=== PATIENT | female | born 1975 | race Caucasian/White ===

== ENCOUNTER 2018-11-29 05:51 | Observation (INO) | payer MEDICARE, MEDICAID ==
[~2018-11-29 05:51] MED LIST: Buffered Lidocaine 1% SYRIN* 1 ML/SYRINGE INTRADERM ONE; DiMENhydriNATE IV* 50 MG/ML VIAL IV PUSH PRN; Morphine 4 MG/ML VIAL (1 ml) 4 MG/ML VIAL IV PRN; Naloxone* 0.4 MG/ML 1 ML VIAL IV PRN; Ondansetron TAB* 4 MG PO ONE; PROCHLORPERAZINE INJ 5 MG/ML 2 ML VIAL IV PRN; Scopolamine 1.5 mg* PATCH TRANSDERM PRN; fentaNYL* 50 MCG/ML 2 ML VIAL (100 MCG VIAL) IV PRN; oxyCODONE/Acetamin 5/325 MG* TAB PO PRN
--- OUTSIDE RECORDS SUMMARY | 2018-11-29 05:55 | XMS REPORT | Continuity of Care Document ---
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 Onset: 10/28/2018 Localized, primary osteoarthritis of the Marty Dixon MD Active ankle and/or foot Family History Date Family Member(s) Observation Comments General Diabetes Social History Type Date Description Comments Sex Unknown Lives With apartment in assisted living ETOH Use Denies alcohol use Tobacco Use Start: Unknown Patient has never smoked Smoking Status Reviewed: 11/16/18 Patient has never smoked Allergies, Adverse Reactions, Alerts Description No Known Drug Allergies Medications Medication Date Status Form Strength Qnty SIG Indications Ordering Provider Ibuprofen / Active Capsules 200mg two tabs Unknown 0000 three times daily as needed for Left ankle pain Vitamin D / Active Tablets 1000Unit one tab Unknown 0000 December thru June and 2 tabs July thru november Synthroid / Active Tablets 75mcg 1 by mouth Unknown 0000 every day Guaifenesin/De / Active Tablets ER 60-1200mg Unknown xtromethorphan 0000 12HR Hydrobromide Tylenol / Active Tablets 325mg 2 tabs by Unknown 0000 mouth every 4 hours as needed [place]-3 / Active Capsules 1000mg 1 tab by Unknown 0000 mouth twice a day Omeprazole / Active Capsules DR 20mg 1 by mouth Unknown 0000 every day Fluticasone / Active Suspension 50mcg/Act 1 spray in Unknown Propionate 0000 each Nasal [place] nostril each day. Benefiber / Active Powder 2 Unknown 0000 teaspoons 2 times per day Multi-Vitamins / Active Tablets take one Unknown 0000 tablet by mouth every day (supplemen t) Fish Oil / Hx Unknown 2018 Multivitamin / Hx Unknown - 2018 Zantac / Hx Unknown - 2018 Ccalcium / Hx Unknown 2018 Immunizations Description No Information Available Vital Signs Date Vital Result Comment 11/16/2018 2:56pm Height 61 inches 5'1" Weight 138.00 lb Heart Rate 78 /min BP Systolic Sitting 122 mmHg BP Diastolic Sitting 74 mmHg Pain Level 10 O2 % BldC Oximetry 96 % BMI (Body Mass Index) 26.1 kg/m2 10/28/2018 3:23pm Height 61 inches 5'1" Weight 140.00 lb Heart Rate 80 /min BP Systolic 120 mmHg BP Diastolic 80 mmHg Pain Level 6 BMI (Body Mass Index) 26.4 kg/m2 Results Description No Information Available Procedures Description No Information Available Encounters Type Date Location Provider Dx Diagnosis Office Visit 10/28/2018 Orthopedic Marty Dixon, M19.072 [facility] [place] osteoarthritis, left ankle and foot M19.071 Primary osteoarthritis, 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 - Marty Dixon, MDM19.072 Primary osteoarthritis, left ankle and footFollow up:Follow Up: 13-15 days vzllagH29.875 Other osteonecrosis, left footM19.071 Primary osteoarthritis, right ankle and footM87.874 Other osteonecrosis, right foot
--- OUTSIDE RECORDS SUMMARY | 2018-11-29 05:55 | XMS REPORT | Continuity of Care Document ---
:1975 External Reference #:[id number] Author Name Mary Lou Landry Care Team Providers Name Role Phone Netta Ledesma MD Care Team Information Manager Of Clinical Unavailable Payers Date Identification Numbers Payment Provider Subscriber Effective: 2002 Policy Number: [id number] Medicare Lacie Shea Group Name: [facility] [address] PayID: [id number] KOFI Dooley [id number] Effective: 2018 Policy Number: [id number] [facility] Ajit Shea Group Number: [id number] [address] Group Name: [place] [address] PayID: [id number] Policy Number: [id number] Medicaid ### >11 Lacie Shea Group Name: [id number] [address] PayID: [id number] [place] [address] Advance Directives Description No Information Available Problems Date Description Provider Status Onset: 09/30/2006 Hypothyroidism Linda Bermudez RN MS [employer] Active Onset: 12/21/2012 Iron deficiency anemia Magy Fabian MD Active Onset: 12/21/2012 Mitral valve disorder Magy Fabian MD Active Note: mitral valve prolapse with mitral insufficieny Onset: 12/21/2012 Mixed hyperlipidemia Magy Fabian MD Active Onset: 12/21/2012 Aortic valve disorder Magy Fabian MD Active Onset: 12/21/2012 Vitamin D deficiency Magy Fabian MD Active Onset: 12/21/2012 Vitiligo Magy Fabian MD Active Family History Description No Information Available Social History Type Date Description Comments Sex Unknown Tobacco Use Start: Unknown End: denies cigarette use Unknown ETOH Use Denies alcohol use Recreational Drug Use Denies Drug Use Tobacco Use Start: Unknown Patient has never smoked Smoking Status Reviewed: 11/15/18 Patient has never smoked Currently Active Has never engaged in sexual activity Contraceptive Methods Current methods include tubal ligation Allergies, Adverse Reactions, Alerts Description No Known Drug Allergies Medications Medication Date Status Form Strength Qnty SIG Indications Ordering Provider Olopatadine HCL 09/06 Active Solution 0.6% 30.500g 2 p bilat H65.02 Bal[place]zar lizzie nares Netta twice a MD Lizzie day x 2 weeks then stop Benefiber On The 03/22 Active Packet QS 1 by [place]tazar, mouth Netta every day MD Lizzie as needed constipat ion Super Leigh-3 12/10 Active Capsules -3 100caps one tab Jes daily Netta MD Lizzie Diet 09/27 Active low Baltazar cholester Nettaher abi Phma MD V-8 Juice 09/06 Active no contraind Netta ication MD Lizzie to consume low sodium 1 can/d- [place] house may encourage this Prevident 10/22 Active Gel 1.1% 56gm may apply to tooth Linda Sierra RN MS twice a [employer] day Vitamin D 08/11 Active Tablets 1000Unit 90tabs 1 by E55.9 mouth Netta every day MD Lizzie 12/14-07/15 3 by mouth every day 07/16-12/13 so this means currently 3 qd) Biofreeze 04/01 Active Aerosol 10% 1units [place] RT Ribs bid Linda Sierra RN MS [employer] Omeprazole 03/16 Active Capsules 20mg 30caps [address] mouth Netta every day MD Lizzie A & D Zinc Oxide 08/21 Active Cream 113gm apply bid to Netta affected MD Lizzie area prn Ranitidine HCL 12/31 Active Tablets 150mg 60tabs 1 by [place] mouth Netta twice a MD Lizzie day Fluticasone 05/29 Active Suspension 50mcg/Act 16units 2 sprays H65.93 Baltazar, in each Netta nostril MD Lizzie daily Triple 04/10 Active Ointment 1% 1units Apply bid [place]ta[place], Antibiotic X 3 D prn Netta Cuts/Scra MD Lizzie pes Levothyroxine 10/31 Active Tablets 75mcg 30tabs 1 by E03.9 [place], Sodium mouth Netta every day MD Lizzie Vitamins & 03/11 Active Tablets 30tabs 1 by [place] Minerals mouth Netta every day MD Lizzie Loratadine 12/30 Active Tablets 10mg 90tabs 1 by [place] mouth Netta every day MD Lizzie as needed only for allergy symptoms Tylenol 01/12 Active Tablets 325mg 60tabs 2 po q 4 280.9 [place], hours as Netta needed MD Lizzie for pain/Feve r prn Ibuprofen 10/24 Active Capsules 200mg 60caps 2 by [place], mouth Netta after MD Lizzie meals q6 hours for the pain stop if there is gi sx Azithromycin 09/06 Hx Tablets 250mg 6tabs 2 tabs H65.02 [place] day one Netta - and 1 tab MD Lizzie 10/21 till gone Cephalexin 06/20 Hx Tablets 500mg 15tabs 1 by L03.113 [place] mouth Netta - three MD Lizzie 09/06 times day Doxycycline 03/28 Hx Capsules 100mg 14caps 1 cap by L02.412 [place] Monohydrate mouth Netta - twice a MD Lizzie Amoxicillin/Clav 03/03 Hx Tablets 875-125mg 14tabs 1 by L02.412 nick Bermudez mouth Linda Potassium - twice a NOMI Sierra MS 03/22 day Miralax 08/23 Hx d/c d/t Baltazar no longer Netta - needs MD Lizzie 08/23 BM's reg on fiber supp Vitamin D-3 04/02 Hx Tablets 2000Unit 90tabs one daily Aidan Linda - C RN MS 04/02 [employer] Total Fiber 04/02 Hx Powder 952gm 2 TSP Aidan Daily X 7 Linda - Days If NOMI Sierra MS 03/22 Needed [employer] After One Week. May Increase To 2 TSP bid Tamiflu 10/16 Hx Capsules 75mg 10caps 1 by 487.8 [place] mouth Netta - twice a MD Lizzie 12/07 day x days Hydroxyzine HCL 06/26 Hx Tablets 10mg 40tabs discontin 308.3 [place] ue Netta Pham MD 06/18 Azithromycin 05/29 Hx Tablets 250mg 1Pack 2 tabs 381.4 [place] day one Netta - and 1 tab MD Lizzie 06/26 daily till gone Amoxicillin 10/27 Hx Tablets 875mg 20tabs 1 po bid 381.4 [place] Netta Pham MD 01/01 A+D First Aid 10/27 Hx Ointment QS apply 616.10 [place] external Netta - vaginal MD Lizzie 08/20 area bid /2015 x 10 d Amoxicillin/Pota 10/25 Hx Tablets 875-125mg 14tabs 1 po bid 682.8 [place], ssi Netta Clavulanate Myra Pham MD 11/14 Protein 07/22 Hx QS body [place], fortress Netta - super MD Lizzie 12/16 whey 1/2-1 scoop qd Vitamin D3 07/01 Hx Capsules [id number] 8caps 1 po q wk Baltazar x 8 wks Netta Pham MD 12/19 No 05/[address] Bermudez, Contraindication Torrie barber To Proposed - katt Sierra, RN MS Dental Surgery 06/17 reviewed [employer] as was the patinet chart and this should be a fine plan.. Diet 12/14 Hx low fat V72.31 [place] Netta Pham MD 12/21 Oxistat 10/01 Hx Cream 1% 1Lgtube apply tid Baltazar 3 wks Netta Pham MD 12/21 Glucosamine/Jarrod 09/28 Hx Tablets 750-600mg 180tabs 2 po qd [place]zar, dro Netta Pham MD 08/20 Miconazole 09/11 Hx Cream 2% 45gm Apply bid 110.8 [place], Until Netta - Rash Gone MD Lizzie 12/21 D/C 07/17 Hx Dermotic [place] Netta Pham MD 07/17 Boost 04/07 Hx D/c qd [place] dosing Netta Olson MD 04/08 change to prn Citracal + D3 03/25 Hx Tablets 315-250mg- 60tabs 1 po bid [place], Unit Netta Pham MD 04/02 Dermotic 03/25 Hx Oil 0.01% QSmeds 2 drops Baltazar each ear Netta - bid prn MD Lizzie 07/17 Act Mint 03/25 Hx Rinse Baltazar, Solution Mouth bid Netta Pham MD 12/21 Prilosec 03/12 Hx Capsules 20mg 90caps [address] Linda Sierra RN MS 12/21 [employer] Boost 02/24 Hx Liquid 30units 1x/D prn Aidan morris Sierra RN MS 06/17 starting 06/17/2012 D/C Colace 10/20 Hx [place] Netta Pham MD 11/25 Ranitidine HCL 06/19 Hx Tab 150mg/10ML One Tab By Mouth Linda - Q 12 HRS Mariela RN MS 03/12 [employer] Pseudoephedrine 06/19 Hx Tablets 60mg 30tabs T Tab bid Aidan, HCL as needed Linda - for nasal Mariela RN MS 07/17 or ear congestio n Saline Nasal 06/19 Hx Solution 0.65% 1units 2 sprays , [place] each Linda - nostril Mariela RN MS 07/17 tid as needed for nasal congestio n Discontinue 03/11 Hx [place]tazar, Ferrous Sulfate Netta 325MG qod - MD Lizzie 07/22 Blood Draw 12/16 Hx 25 Oh Vit Baltazar Leida Pham MD 07/22 DX: Def Vitamin D 12/09 Hx Capsules 1000Unit 60caps 2 by [place] mouth Netta - every day MD Lizzie 08/11 07/16 thru 12/13-07/15 take 1 every day Please 10/15 Hx zofram Aidan, Discontinue medicatio Linda - n qid as C, RN MS 12/07 of today Zofran 10/07 Hx Tablets 4mg 12tabs 1-2 tid [facility] prn n/v Netta Pham MD 10/08 D/C Flagyl 09/25 Hx Tablets 500mg 14tabs 1 bidx7 2009 Linda Sierra RN MS 07/22 Clarinex 05/17 Hx Tablets 5mg 90tabs 1 po qd 477.0 [facility] prn Netta Pham MD 12/30 Omeprazole 02/27 Hx Capsules 20mg 90caps [address] Linda Sierra RN MS 03/25 Vitamin D 10/29 Hx Capsules 400Unit 60caps 1 po bid Netta Pham MD 12/09 PPD 10/24 Hx Screening please Test place and Linda - read with NOMI Sierra MS 11/03 in 48-72 hours. fax results to [phone] Flagyl 10/23 Hx Tablets 500mg 14tabs 1 bid x 7 616.10 2008 Linda Sierra RN MS 02/27 Super Leigh-3 06/13 Hx Capsules 1000mg Of 100caps one tab Baltazar Leigh 3 daily Netta Pham MD 12/10 Diflucan 03/29 Hx Tablets 150mg 1tabs one tab [place]zar po times Netta - one day MD Lizzie 10/18 Elocon 03/26 Hx Cream 0.1% 45gm Apply bid 705.81 [place]tazar prn Netta - ItchLizzie funez MD 07/17 Scaly /2010 Areas Miralax (Single 09/29 Hx Packet [id number] 50units dissolve 564.00 [place], Dose Packets) 1pkt in 8 Netta - oz of MD Lizzie 12/21 water and /2012 drink qd prn daily if no BM Glucosamine/Jarrod 03/21 Hx Tablets 750-600 180tabs 2 po qd Baltazar, droitin /2006 Netta Pham MD 09/28 Blood Draw 02/07 Hx cbc, bmp, Baltazar TSH, iron Netta Pham MD 10/04 dx: anemia, hypothyro id Crutches 10/25 Hx dx: foot Baltazar pain Netta Pham MD 10/18 attn: linda roman to use at dayhab Docusate Sodium 09/28 Hx Capsules 100mg 180caps 2 po hs [place]zar Netta Pham MD 10/20 Amoxicillin 05/12 Hx Capsules 500mg 4caps 4 po 1 hr Baltazar, before Netta - wilner Pham MD 10/04 Monistat 7 04/16 Hx Supp/Cream 100mg;2 % 1Tube qhs x 7D Baltazar, Combination Netta Pham MD 09/28 Ferrous Sulfate 01/15 Hx Tablets 325mg 15tabs 1 tab qod [place] Netta Pham MD 03/10 Cipro 10/20 Hx Tablets 500mg 14tabs 1 po bid 595.0 [place] Netta Pham MD 01/12 Amoxicillin 06/15 Hx Capsules 500mg 4caps 4 PO 1 HR [place] Before Netta - Wilner Pham MD 01/12 Adderall XR 03/13 Hx Capsules 15mg 30caps one in Baltazar the am Netta Pham MD 03/13 Calicium 500MG 03/13 Hx 60units 1 po bid [place], Plus Vit D Netta Pham MD 03/25 A & D Ointment 03/13 Hx Ointment 1Tube to [place]tazar affected Netta - area karyn Pham MD 03/25 Docusate 03/13 Hx 200mg 90units 1 po qd [place] Netta Pham MD 09/28 Synthroid 10/24 Hx Tablets 75mcg 30tabs 1 po qd Aidan, Linda Sierra RN MS 04/05 [employer] Vitamins 10/24 Hx Caplets 30caps 1 po qd [place], Netta Pham MD 03/11 Guaifenesin 10/24 Hx Tablets 200mg 60tabs 1 PO tid [place]tazar prn Cough Netta Pham MD 12/21 Pseudoephedrine 10/24 Hx Tablets 30mg 30tabs 2 Q 6H as [place] Needed Netta Torrez Cold MD Lizzie 06/19 Clonidine 10/24 Hx Tablets 0.1mg 15tabs 1/2 tab [place] at hs Netta Pham MD 10/18 Ferrous Sulfate 09/10 Hx Tablets 325mg 60tabs 1 po bid [place], Netta Pham MD 01/15 Synthroid 09/10 Hx Tablets 75mcg 30tabs 1 po qd [place] Netta Pham MD 10/31 Docusate Sodium 09/10 Hx Capsules 100mg 100caps 1 po bid [place] Netta Pham MD 03/13 Bextra 09/10 Hx Tablets 10mg 30tabs 1 po qd [place] with food Netta Pham MD 01/12 Medications Administered in Office Medication Date Status Form Strength Qnty SIG Indications Ordering Provider PPD Administered Injection Aidan, 010 Linda Sierra RN MS [employer] PPD Administered Injection [place], 008 Netta Pham MD PPD Administered Injection Nurses 008 Schedule Shannon PPD Administered Injection [place], 007 Netta Pham MD PPD Administered Injection [place], 007 Linda Sierra RN MS [employer] PPD Administered Injection [place], 005 Netta Pham MD Torodol Administered Injection [place], Injection 15 002 Netta Pham MD PPD Administered Injection [place], 002 Netta Pham MD PPD Administered Injection [place], 001 NOMI Marin A.N.P. Immunizations CPT Code Status Date Vaccine Lot # [id number] Given 06/08/2018 Influenza Vac, Quadrivalent, Split, [id number] 0.5mL Dosage, Im Use 68536 Given 06/10/2016 Influenza Vac, Quadrivalent, Split, 0.5mL Dosage, Im Use 32206 Given 05/31/2015 Tdap (Adacel) Ages 7 And Above Only [id number] 05062 Given 05/31/2015 Influenza Vac, Quadrivalent, Split, [id number] 0.5mL Dosage, Im Use 38079 Given 05/17/2009 Afluria Or Fluvirin Flu Vac [id number] Intramuscular 92909 Given 06/17/2005 Afluria Or Fluvirin Flu Vac [id number] exp 02/12/06 Intramuscular 21260 Given 09/01/2004 Afluria Or Fluvirin Flu Vac Intramuscular 40983 Given 10/12/2003 Tetanus And Diptheria Toxoids For Adult Use-preservative free 68658 Given 08/25/1999 Hepatitis B Vaccine Adult Dosage 99561 Given 07/21/1999 Hepatitis B Vaccine Adult Dosage 19814 Given 07/21/1999 MMR Virus Immunization Vital Signs Date Vital Result Comment 11/15/2018 10:37am Weight 138.00 lb Heart Rate 64 /min BP Systolic 126 mmHg BP Diastolic 68 mmHg Height 60.5 inches 5'0.50" BMI (Body Mass Index) 26.5 kg/m2 09/06/2018 2:08pm Body Temperature 97.3 F Weight 142.00 lb Heart Rate 72 /min BP Systolic 128 mmHg BP Diastolic 72 mmHg Height 60.5 inches 5'0.50" BMI (Body Mass Index) 27.3 kg/m2 06/20/2018 11:49am Weight 144.00 lb Heart Rate 80 /min BP Systolic 124 mmHg BP Diastolic 76 mmHg Height 60.5 inches 5'0.50" BMI (Body Mass Index) 27.7 kg/m2 06/08/2018 11:33am Weight 142.00 lb Heart Rate 64 /min BP Systolic 120 mmHg BP Diastolic 66 mmHg Height 60.5 inches 5'0.50" BMI (Body Mass Index) 27.3 kg/m2 03/30/2018 12:00pm Heart Rate 75 /min BP Systolic 105 mmHg BP Diastolic 46 mmHg Height 60.5 inches 5'0.50" 03/28/2018 3:16pm Weight 136.00 lb Heart Rate 84 /min BP Systolic 122 mmHg BP Diastolic 71 mmHg Height 60.5 inches 5'0.50" BMI (Body Mass Index) 26.1 kg/m2 03/03/2018 11:43am Weight 137.25 lb Heart Rate 62 /min BP Systolic 121 mmHg BP Diastolic 71 mmHg Height 60.5 inches 5'0.50" BMI (Body Mass Index) 26.4 kg/m2 09/24/2017 10:09am Weight 135.00 lb Heart Rate 76 /min BP Systolic 90 mmHg BP Diastolic 58 mmHg Height 60.5 inches 5'0.50" BMI (Body Mass Index) 25.9 kg/m2 04/02/2017 1:02pm Body Temperature 98.4 F Weight 139.50 lb Heart Rate 81 /min BP Systolic 130 mmHg BP Diastolic 60 mmHg Height 60.5 inches 5'0.50" BMI (Body Mass Index) 26.8 kg/m2 03/23/2017 2:14pm Weight 137.00 lb Heart Rate 76 /min BP Systolic 122 mmHg BP Diastolic 88 mmHg Height 60.5 inches 5'0.50" BMI (Body Mass Index) 26.3 kg/m2 11/13/2016 1:53pm Weight 137.00 lb Heart Rate 72 /min BP Systolic 92 mmHg BP Diastolic 58 mmHg Height 60.5 inches 5'0.50" BMI (Body Mass Index) 26.3 kg/m2 08/17/2016 11:55am Weight 136.00 lb Heart Rate 72 /min BP Systolic 112 mmHg BP Diastolic 76 mmHg Height 60.5 inches 5'0.50" BMI (Body Mass Index) 26.1 kg/m2 04/01/2016 2:14pm Body Temperature 99.1 F Weight 135.12 lb Heart Rate 69 /min BP Systolic 102 mmHg BP Diastolic 58 mmHg Height 60.5 inches 5'0.50" BMI (Body Mass Index) 26.0 kg/m2 02/03/2016 2:36pm Weight 132.00 lb Heart Rate 68 /min BP Systolic 138 mmHg BP Diastolic 68 mmHg Height 60.5 inches 5'0.50" BMI (Body Mass Index) 25.4 kg/m2 08/20/2015 3:33pm Weight 130.00 lb Heart Rate 64 /min BP Systolic 110 mmHg BP Diastolic 66 mmHg Height 60.5 inches 5'0.50" BMI (Body Mass Index) 25.0 kg/m2 05/31/2015 12:51pm Weight 121.00 lb Heart Rate 60 /min BP Systolic 114 mmHg BP Diastolic 62 mmHg Height 60.5 inches 5'0.50" BMI (Body Mass Index) 23.2 kg/m2 04/10/2015 2:31pm Weight 123.25 lb Heart Rate 80 /min BP Systolic 115 mmHg BP Diastolic 55 mmHg Height 60.5 inches 5'0.50" BMI (Body Mass Index) 23.7 kg/m2 Urine Dipstick - Blood NEGATIVE Urine Dipstick - Protein NEGATIVE Urine Dipstick - Glucose NEGATIVE Urine Dipstick - Leukocytes TRACE 01/28/2015 3:10pm Weight 121.00 lb Heart Rate 76 /min BP Systolic 120 mmHg BP Diastolic 74 mmHg Height 60.5 inches 5'0.50" BMI (Body Mass Index) 23.2 kg/m2 10/16/2014 3:46pm Body Temperature 99.4 F Weight 128.00 lb Heart Rate 84 /min BP Systolic 118 mmHg BP Diastolic 60 mmHg Height 60.5 inches 5'0.50" BMI (Body Mass Index) 24.6 kg/m2 06/26/2014 8:26am Weight 121.00 lb Heart Rate 76 /min BP Systolic 116 mmHg BP Diastolic 62 mmHg Height 60.5 inches 5'0.50" BMI (Body Mass Index) 23.2 kg/m2 05/29/2014 3:31pm Weight 121.00 lb Heart Rate 64 /min BP Systolic 110 mmHg BP Diastolic 60 mmHg Height 60.5 inches 5'0.50" BMI (Body Mass Index) 23.2 kg/m2 01/01/2014 1:33pm Weight 124.00 lb Heart Rate 72 /min BP Systolic 118 mmHg BP Diastolic 66 mmHg Height 60.5 inches 5'0.50" BMI (Body Mass Index) 23.8 kg/m2 10/27/2013 12:57pm Body Temperature 97.7 F Weight 127.00 lb Heart Rate 60 /min BP Systolic 90 mmHg BP Diastolic 61 mmHg 12/21/2012 10:13am Weight 120.00 lb Heart Rate 73 /min BP Systolic 102 mmHg BP Diastolic 54 mmHg 12/16/2012 3:16pm Weight 122.00 lb Heart Rate 76 /min BP Systolic 110 mmHg BP Diastolic 58 mmHg Height 60.5 inches 5'0.50" BMI (Body Mass Index) 23.4 kg/m2 11/14/2012 9:59am Weight 124.00 lb Heart Rate 76 /min BP Systolic 104 mmHg BP Diastolic 58 mmHg Height 60.5 inches 5'0.50" BMI (Body Mass Index) 23.8 kg/m2 10/25/2012 10:40am Body Temperature 98.3 F Weight 123.00 lb Heart Rate 60 /min BP Systolic 98 mmHg BP Diastolic 60 mmHg Height 60.5 inches 5'0.50" BMI (Body Mass Index) 23.6 kg/m2 06/17/2012 3:46pm Weight 121.00 lb Heart Rate 64 /min BP Systolic 96 mmHg BP Diastolic 60 mmHg Height 60.5 inches 5'0.50" BMI (Body Mass Index) 23.2 kg/m2 12/15/2011 11:02am Weight 119.00 lb Heart Rate 64 /min BP Systolic 102 mmHg BP Diastolic 56 mmHg Height 60.5 inches 5'0.50" BMI (Body Mass Index) 22.9 kg/m2 10/28/2011 11:09am Body Temperature 97.1 F Weight 122.00 lb Heart Rate 64 /min BP Systolic 98 mmHg BP Diastolic 64 mmHg 09/11/2011 2:37pm Weight 118.00 lb Heart Rate 80 /min BP Systolic 106 mmHg BP Diastolic 60 mmHg Height 60.5 inches 5'0.50" BMI (Body Mass Index) 22.7 kg/m2 07/21/2011 1:42pm Weight 118.00 lb Heart Rate 72 /min BP Systolic 106 mmHg BP Diastolic 68 mmHg Height 60.5 inches 5'0.50" BMI (Body Mass Index) 22.7 kg/m2 03/25/2011 11:20am Weight 117.00 lb Heart Rate 64 /min BP Systolic 106 mmHg BP Diastolic 65 mmHg 11/25/2010 1:28pm Weight 120.00 lb Heart Rate 60 /min BP Systolic 108 mmHg BP Diastolic 58 mmHg Height 60 inches 5'0"With Shoes BMI (Body Mass Index) 23.4 kg/m2 07/22/2010 2:43pm Body Temperature 97.4 F 36.3 Centigrade Weight 122.00 lb 55.3 KG Heart Rate 80 /min BP Systolic 110 mmHg BP Diastolic 56 mmHg Respiratory Rate 16 /min Height 61 inches 5'1"With Shoes BMI (Body Mass Index) 23.0 kg/m2 06/19/2010 2:50pm Body Temperature 97.8 F Weight 124.00 lb Heart Rate 61 /min BP Systolic 98 mmHg BP Diastolic 57 mmHg 10/28/2009 1:42pm Weight 121.00 lb Heart Rate 68 /min BP Systolic 105 mmHg BP Diastolic 57 mmHg Height 61 inches 5'1" BMI (Body Mass Index) 22.9 kg/m2 09/19/2009 10:59am Body Temperature 97.8 F Weight 122.00 lb Heart Rate 64 /min BP Systolic 92 mmHg BP Diastolic 56 mmHg 06/25/2009 2:08pm Body Temperature 98.1 F Weight 123.00 lb Heart Rate 80 /min BP Systolic 98 mmHg BP Diastolic 62 mmHg 05/17/2009 3:00pm Body Temperature 97.7 F Weight 122.00 lb Heart Rate 60 /min BP Systolic 90 mmHg BP Diastolic 60 mmHg Urine Dipstick - Blood NEGATIVE Urine Dipstick - Protein NEGATIVE Urine Dipstick - Glucose NEGATIVE 02/27/2009 1:05pm Body Temperature 97.8 F Weight 121.00 lb Heart Rate 70 /min BP Systolic 113 mmHg BP Diastolic 61 mmHg 10/18/2008 11:12am Weight 121.00 lb Heart Rate 60 /min BP Systolic 93 mmHg BP Diastolic 59 mmHg Respiratory Rate 20 /min Height 60 inches 5'0" BMI (Body Mass Index) 23.6 kg/m2 03/26/2008 2:48pm Weight 117.00 lb Heart Rate 72 /min BP Systolic 92 mmHg BP Diastolic 50 mmHg Height 61 inches 5'1" BMI (Body Mass Index) 22.1 kg/m2 09/29/2007 1:12pm Weight 122.00 lb Heart Rate 87 /min BP Systolic 114 mmHg BP Diastolic 60 mmHg Height 61 inches 5'1" BMI (Body Mass Index) 23.0 kg/m2 12/30/2006 1:18pm Body Temperature 97.3 F Weight 114.00 lb Heart Rate 72 /min BP Systolic 102 mmHg BP Diastolic 56 mmHg Respiratory Rate 16 /min Height 61 inches 5'1" BMI (Body Mass Index) 21.5 kg/m2 09/28/2006 2:55pm Body Temperature 97.6 F Weight 124.00 lb Height 61 inches 5'1" BMI (Body Mass Index) 23.4 kg/m2 04/16/2006 3:03pm Weight 113.00 lb Heart Rate 68 /min BP Systolic 96 mmHg BP Diastolic 50 mmHg Height 61 inches 5'1" BMI (Body Mass Index) 21.3 kg/m2 01/12/2006 3:20pm Weight 112.00 lb Heart Rate 68 /min BP Systolic 110 mmHg BP Diastolic 62 mmHg Height 61 inches 5'1" BMI (Body Mass Index) 21.2 kg/m2 10/20/2005 3:42pm Body Temperature 98.2 F Weight 114.00 lb Heart Rate 60 /min BP Systolic 90 mmHg BP Diastolic 56 mmHg Height 61 inches 5'1" BMI (Body Mass Index) 21.5 kg/m2 09/14/2005 4:07pm Weight 118.00 lb Heart Rate 68 /min BP Systolic 120 mmHg BP Diastolic 65 mmHg Height 61 inches 5'1" BMI (Body Mass Index) 22.3 kg/m2 06/15/2005 3:41pm Weight 116.00 lb Heart Rate 84 /min BP Systolic 108 mmHg BP Diastolic 54 mmHg Height 61 inches 5'1" BMI (Body Mass Index) 21.9 kg/m2 Urine Dipstick - Blood NEGATIVE Urine Dipstick - Protein NEGATIVE Urine Dipstick - Glucose NEGATIVE 12/25/2004 8:31am Height 5.12 inches 0'5.10" 12/25/2004 8:30am Weight 115.00 lb Heart Rate 68 /min BP Systolic 108 mmHg BP Diastolic 64 mmHg Height 5.12 inches 0'5.10" BMI (Body Mass Index) 3108.2 kg/m2 Urine Dipstick - Blood TRACE Urine Dipstick - Protein NEGATIVE Urine Dipstick - Glucose NEGATIVE Results Test Date Facility Test Result H/L Range Note CBC with Auto Diff-fcmg 11/15/2018 [facility] WBC 5.9 K/uL 4.1-11.0 1 RBC 4.17 M/uL 4.00-5.40 Hemoglobin 13.5 gm/dL 12.0-16.0 Hematocrit 39.4 % 36.0-47.0 MCV 94.5 fL 80.0-97.0 MCH 32.5 pg High 27.0-32.0 MCHC 34.4 g/dL 32.0-36.0 RDW 13.0 % 11.5-14.5 PLT Count 327 K/ul 140-400 MPV 8.7 FL 7.1-10.7 Neutrophil 63.0 % 35.0-75.0 Lymphocyte 26.6 % 16.0-52.0 Monocyte 6.8 % 2.0-10.0 Eosinophil 2.6 % 0.0-5.0 Basophil 1.0 % 0.0-4.0 Abs Neutrophils 3.7 K/uL 2.1-8.0 Abs Lymphocytes 1.6 K/uL 0.8-5.5 Abs Monocytes 0.4 K/uL 0.1-1.0 Abs Eosinophils 0.2 K/uL 0.0-0.5 Abs Basophils 0.1 K/uL 0.0-0.3 Basic (BMP) 11/15/2018 [facility] Sodium 142 mmol/L 135-146 2 Potassium 5.2 mmol/L 3.5-5.2 Chloride# 102 mmol/L 97-110 3 Carbon Dioxide 30 mmol/L 24-34 Glucose 78 mg/dL 70-105 BUN 14 mg/dL 6-26 Creatinine 0.8 mg/dL 0.5-1.4 Calcium 10.0 mg/dL 8.5-10.2 Non Sheryl Egfr >60 >60 4 Sheryl Egfr >60 >60 5 Anion Gap 10 mmol/L 5-15 6 Lipid Treatment 11/15/2018 [facility] Cholesterol 223 mg/dL High 50-199 Triglycerides 147 mg/dL 30-200 HDL 30 mg/dL Low 35-85 7 Chol/ HDL Ratio 7.3 ratio High 3.7-5.6 VLDL 29 mg/dL 2-29 LDL (Calc) 163 mg/dL High 20-99 8 Alt 28 U/L 3-42 Ast 22 U/L 8-42 Laboratory test finding 11/15/2018 [facility] TSH 0.91 uIU/mL 0.35-4.94 Vitamin D 25 Hydroxy 49 ng/mL 30-100 9 Hemoglobin A1c 11/15/2018 [facility] Hemoglobin A1c 4.7 % 4.1-5.9 Estimated Average Glucose Calc 88 mg/dL 71-140 Laboratory test finding 06/08/2018 [facility] Pap SEE NOTE 10 CBC with Auto Diff-fcmg 06/08/2018 [facility] WBC 8.0 K/uL 4.1-11.0 RBC 4.27 M/uL 4.00-5.40 Hemoglobin 13.6 gm/dL 12.0-16.0 Hematocrit 39.7 % 36.0-47.0 MCV 93.1 fL 80.0-97.0 MCH 31.9 pg 27.0-32.0 MCHC 34.3 g/dL 32.0-36.0 RDW 13.0 % 11.5-14.5 PLT Count 368 K/ul 140-400 MPV 8.7 FL 7.1-10.7 Neutrophil 60.8 % 35.0-75.0 Lymphocyte 28.5 % 16.0-52.0 Monocyte 5.4 % 2.0-10.0 Eosinophil 4.5 % 0.0-5.0 Basophil 0.8 % 0.0-4.0 Abs Neutrophils 4.9 K/uL 2.1-8.0 Abs Lymphocytes 2.3 K/uL 0.8-5.5 Abs Monocytes 0.4 K/uL 0.1-1.0 Abs Eosinophils 0.4 K/uL 0.0-0.5 Abs Basophils 0.1 K/uL 0.0-0.3 Comprehensive Met Panel-[facility] 06/08/2018 [facility] Sodium 142 mmol/L 135- 146 11 Potassium 4.8 mmol/L 3.5-5.2 Chloride# 102 mmol/L 97-110 12 Carbon Dioxide 30 mmol/L 24-34 Glucose 85 mg/dL 70-105 BUN 11 mg/dL 6-26 Creatinine 0.8 mg/dL 0.5-1.4 Calcium 9.9 mg/dL 8.5-10.2 Total Protein 7.1 g/dL 6.0-8.0 Albumin 4.5 g/dL 3.6-4.9 Globulin 2.6 g/dL 2.0-3.5 A/G Ratio 1.7 Ratio 1.0-2.2 Total Bilirubin 0.5 mg/dL 0.1-1.3 Alkaline Phosphatase 74 U/L 24-140 Alt 22 U/L 3-42 Ast 19 U/L 8-42 Sheryl Egfr >60 >60 13 Non Sheryl Egfr >60 >60 14 Anion Gap 10 mmol/L 5-15 15 Hemoglobin A1c 06/08/2018 [facility] Hemoglobin A1c 4.6 % 4.1-5.9 Estimated Average Glucose Calc 85 mg/dL 71-140 Lipid 06/08/2018 [facility] Cholesterol 231 mg/dL High 50-199 Triglycerides 220 mg/dL High 30-200 HDL 32 mg/dL Low 35-85 16 Chol/ HDL Ratio 7.3 ratio High 3.7-5.6 VLDL 44 mg/dL High 2-29 LDL (Calc) 156 mg/dL High 20-99 17 Laboratory test finding 06/08/2018 [facility] TSH 1.64 uIU/mL 0.35-4.94 Vitamin D 25 Hydroxy 39 ng/mL 30-100 18 Wound Culture-RL 03/03/2018 [facility] Wound Culture SEE NOTE 19 Comprehensive Met Panel-[facility] 09/24/2017 [facility] Sodium 142 mmol/L 135- 146 20 Potassium 4.7 mmol/L 3.5-5.2 Chloride# 103 mmol/L 97-110 21 Carbon Dioxide 30 mmol/L 24-34 Glucose 80 mg/dL 70-105 BUN 14 mg/dL 6-26 Creatinine 0.8 mg/dL 0.5-1.4 Calcium 9.8 mg/dL 8.5-10.2 Total Protein 7.0 g/dL 6.0-8.0 Albumin 4.6 g/dL 3.6-4.9 Globulin 2.4 g/dL 2.0-3.5 A/G Ratio 1.9 Ratio 1.0-2.2 Total Bilirubin 0.5 mg/dL 0.1-1.3 Alkaline Phosphatase 62 U/L 24-140 Alt 24 U/L 3-42 Ast 21 U/L 8-42 Sheryl Egfr >60 >60 22 Non Sheryl Egfr >60 >60 23 Anion Gap 9 mmol/L 5-15 24 Laboratory test finding 09/24/2017 [facility] TSH 0.88 uIU/mL 0.35-4.94 Vitamin D 25 Hydroxy 46 ng/mL 30-100 25 Lipid 09/24/2017 [facility] Cholesterol 224 mg/dL High 50-199 Triglycerides 89 mg/dL 30-200 HDL 34 mg/dL Low 35-85 26 Chol/ HDL Ratio 6.6 ratio High 3.7-5.6 VLDL 18 mg/dL 2-29 LDL (Calc) 172 mg/dL High 20-99 27 Lipid 03/23/2017 [facility] Cholesterol 197 mg/dL 50-199 Triglycerides 208 mg/dL High 30-200 HDL 30 mg/dL Low 35-85 28 Chol/ HDL Ratio 6.6 ratio High 3.7-5.6 VLDL 42 mg/dL High 2-29 LDL (Calc) 125 mg/dL High 20-99 29 Comprehensive Met Panel-[facility] 03/23/2017 [facility] Sodium 138 mmol/L 135- 146 30 Potassium 3.8 mmol/L 3.5-5.2 Chloride# 102 mmol/L 97-110 31 Carbon Dioxide 28 mmol/L 24-34 Glucose 84 mg/dL 70-105 BUN 11 mg/dL 6-26 Creatinine 0.7 mg/dL 0.5-1.4 Calcium 9.3 mg/dL 8.5-10.2 Total Protein 6.8 g/dL 6.0-8.0 Albumin 4.3 g/dL 3.6-4.9 Globulin 2.5 g/dL 2.0-3.5 A/G Ratio 1.7 Ratio 1.0-2.2 Total Bilirubin 0.4 mg/dL 0.1-1.3 Alkaline Phosphatase 73 U/L 24-140 Alt 38 U/L 3-42 Ast 27 U/L 8-42 Sheryl Egfr >60 >60 32 Non Sheryl Egfr >60 >60 33 Anion Gap 8 mmol/L 7-16 34 Laboratory test finding 03/23/2017 [facility] Vit D,25 Hydroxy 42 ng/mL 31- 100 FSH 3.6 mIU/ml 35 LH 2.1 mIU/ml 36 Hemoglobin A1c 03/23/2017 [facility] Hemoglobin A1c 4.8 % 4.1-5.9 Estimated Average Glucose Calc 91 71-140 CBC With Auto Diff 03/23/2017 [facility] WBC 8.0 K/uL 4.1-11.0 RBC 4.02 M/uL 4.00-5.40 Hemoglobin 12.7 gm/dL 12.0-16.0 Hematocrit 37.6 % 36.0-47.0 MCV 93.6 fL 80.0-97.0 MCH 31.7 pg 27.0-32.0 MCHC 33.8 g/dL 32.0-36.0 RDW 13.2 % 11.5-14.5 PLT Count 275 K/ul 140-400 Neutrophil 64.1 % 35.0-75.0 Lymphocyte 26.0 % 16.0-52.0 Monocyte 6.1 % 2.0-10.0 Eosinophil 3.0 % 0.0-5.0 Basophil 0.8 % 0.0-4.0 Abs Neutrophils 5.1 K/uL 2.1-8.0 Abs Lymphocytes 2.1 K/uL 0.8-5.5 Abs Monocytes 0.5 K/uL 0.1-1.0 Abs Eosinophils 0.2 K/uL 0.0-0.5 Abs Basophils 0.1 K/uL 0.0-0.3 Laboratory test 03/23/2017 [facility] Pap SEE NOTE 37 finding Affirm 11/13/2016 [facility] Trichomonas Vaginalis Negative Negative Gardnerella Vaginalis Negative Negative Shantelle Species Negative Negative Comprehensive Metabolic 08/17/2016 [facility] Sodium 140 mmol/L (136- 145) (CMP) [phone] Potassium 4.8 mmol/L (3.6-5.2) Chloride 102 mmol/L (100-108) Co2 27 mmol/L (22-31) Anion Gap 11 mmol/L (7-16) Urea Nitrogen 15 mg/dL (7-24) Creatinine 0.78 mg/dL (0.60-1.00) BUN/Creat Ratio 19.2 RATIO (10.0-20.0) Glucose 71 mg/dL (70-99) Calcium 8.9 mg/dL (8.4-10.2) Total Protein 7.0 g/dL (6.4-8.2) Albumin 3.7 g/dL (3.5-4.6) Globulin 3.3 g/dL (2.7-4.3) Alb/Glob Ratio 1.1 RATIO Alkaline Phosphatase 75 U/L (45-117) Bilirubin,Total 0.4 mg/dL (0.0-1.0) Ast (Sgot) 23 U/L (11-39) Alt (SGPT) 60 U/L (12-78) GFR >60 ml/min/1.73m2 (>59) GFR ( Amer) >60 ml/min/1.73m2 (>59) GFR Interpretation <SEE NOTE> 38 Lipid 08/17/2016 [facility] Cholesterol @ 203 mg/dL High (0-200) [phone] Triglyceride @ 201 mg/dL High (30-200) HDL Cholesterol @ 32 mg/dL Low (>40) 39 Chol/HDL Ratio 6.3 RATIO 40 LDL Chol (Calc) 131 mg/dL High (<130) 41 Laboratory 08/17/2016 [facility] TSH,Ultrasensitive @ 0.913 (0.360- 4.170) test finding [phone] mIU/L 25 Hydroxy Vit D @ 26 ng/mL Low (31-100) 42 Affirm 02/03/2016 [facility] Trichomonas Vaginalis Negative Negative Gardnerella Vaginalis Negative Negative Shantelle Species Negative Negative Laboratory test finding 02/03/2016 [facility] Rubella Igg AB POSITIVE AI 43 Measles Igg AB POSITIVE AI 44 Mumps Igg (Immune) POSITIVE AI 45 Hep B S AB Quant 122.0 mIU/mL 46 Varicella Zost Igg POSITIVE AI 47 Laboratory test finding 02/03/2016 [facility] TSH 1.54 uIU/mL 0.35-4.94 Vit D,25 Hydroxy 37 ng/mL 31-100 CBC With Auto Diff 08/20/2015 [facility] WBC 7.3 K/uL 4.1-11.0 RBC 4.17 M/uL 4.00-5.40 Hemoglobin 13.5 gm/dL 12.0-16.0 Hematocrit 39.9 % 36.0-47.0 MCV 95.8 fL 80.0-97.0 MCH 32.4 pg High 27.0-32.0 MCHC 33.8 g/dL 32.0-36.0 RDW 12.8 % 11.5-14.5 PLT Count 270 K/ul 140-400 Neutrophil 59.7 % 35.0-75.0 Lymphocyte 30.5 % 16.0-52.0 Monocyte 6.3 % 2.0-10.0 Eosinophil 3.0 % 0.0-5.0 Basophil 0.5 % 0.0-4.0 Abs Neutrophils 4.3 K/uL 2.1-8.0 Abs Lymphocytes 2.2 K/uL 0.8-5.5 Abmon 0.5 K/uL 0.1-1.0 Abs Eosinophils 0.2 K/uL 0.0-0.5 Abs Basophils 0.0 K/uL 0.0-0.3 Laboratory test finding 08/20/2015 [facility] TSH 1.14 uIU/mL 0.35-4.94 Vit D,25 Hydroxy 39 ng/mL 31-100 Laboratory test 04/10/2015 Done [facility] HCG (Urine NEG finding Yes/No)RL CBC With Auto Diff 04/10/2015 [facility] WBC 8.6 K/uL 4.1-11.0 RBC 4.28 M/uL 4.00-5.40 Hemoglobin 14.1 gm/dL 12.0-16.0 Hematocrit 41.4 % 36.0-47.0 MCV 96.6 fL 80.0-97.0 MCH 32.9 pg High 27.0-32.0 MCHC 34.0 g/dL 32.0-36.0 RDW 13.1 % 11.5-14.5 PLT Count 230 K/ul 140-400 Neutrophil 66.5 % 35.0-75.0 Lymphocyte 23.5 % 16.0-52.0 Monocyte 6.2 % 2.0-10.0 Eosinophil 3.1 % 0.0-5.0 Basophil 0.7 % 0.0-4.0 Abs Neutrophils 5.7 K/uL 2.1-8.0 Abs Lymphocytes 2.0 K/uL 0.8-5.5 Abmon 0.5 K/uL 0.1-1.0 Abs Eosinophils 0.3 K/uL 0.0-0.5 Abs Basophils 0.1 K/uL 0.0-0.3 Comprehensive Metabolic (CMP) 04/10/2015 [facility] Sodium 137 mmol/L 134- 142 Potassium 4.5 mmol/L 3.5-5.2 Chloride 104 mmol/L 97-109 Carbon Dioxide 29 mmol/L 24-34 Glucose 86 mg/dL 70-105 BUN 11 mg/dL 6-26 Creatinine 0.8 mg/dL 0.5-1.4 Calcium 9.4 mg/dL 8.5-10.2 Total Protein 6.8 g/dL 6.0-8.0 Albumin 4.5 g/dL 3.6-4.9 Globulin 2.3 g/dL 2.0-3.5 A/G Ratio 2.0 Ratio 1.0-2.2 Total Bilirubin 0.5 mg/dL 0.1-1.3 Alkaline Phosphatase 56 U/L 24-140 Alt 49 U/L High 3-42 Ast 26 U/L 8-42 Anion Gap 9 mmol/L 6-14 Sheryl Egfr >60 >60 48 Non Sheryl Egfr >60 >60 49 Laboratory test finding 04/10/2015 [facility] Lipase 81 U/L 11-82 Esr 7 mm/hr 0-20 Urine Culture Microbiology res <SEE NOTE> 50 Laboratory test finding 01/28/2015 [facility] Pap SEE NOTE 51 Laboratory test finding 01/28/2015 [facility] TSH 1.07 uIU/mL 0.35-4.94 Vit D,25 Hydroxy 53 ng/mL 31-100 Hemoglobin A1c 4.5 % 4.1-5.9 Laboratory test finding 06/26/2014 [facility] Vit D,25 Hydroxy 32 ng/mL 31- 100 Comprehensive Metabolic 06/26/2014 [facility] Sodium 138 mmol/L 134-142 (CMP) Potassium 4.5 mmol/L 3.5-5.2 Chloride 102 mmol/L 97-109 Carbon Dioxide 30 mmol/L 24-34 Glucose 86 mg/dL 70-105 BUN 14 mg/dL 6-26 Creatinine 0.8 mg/dL 0.5-1.4 Calcium 9.7 mg/dL 8.5-10.2 Total Protein 7.0 g/dL 6.0-8.0 Albumin 4.5 g/dL 3.6-4.9 Globulin 2.5 g/dL 2.0-3.5 A/G Ratio 1.8 Ratio 1.0-2.2 Total Bilirubin 0.4 mg/dL 0.1-1.3 Alkaline Phosphatase 47 U/L 24-140 Alt 24 U/L 3-42 Ast 20 U/L 8-42 Anion Gap 11 mmol/L 6-14 Sheryl Egfr >60 >60 52 Non Sheryl Egfr >60 >60 53 Laboratory test finding 06/26/2014 [facility] TSH 0.66 uIU/mL 0.34-5.60 CBC With Auto Diff 06/26/2014 [facility] WBC 8.2 K/uL 4.1-11.0 RBC 4.39 M/uL 4.00-5.40 Hemoglobin 14.4 gm/dL 12.0-16.0 Hematocrit 42.1 % 36.0-47.0 MCV 96.0 fL 80.0-97.0 MCH 32.8 pg High 27.0-32.0 MCHC 34.1 g/dL 32.0-36.0 RDW 13.0 % 11.5-14.5 PLT Count 250 K/ul 140-400 Neutrophil 63.3 % 35.0-75.0 Lymphocyte 26.8 % 16.0-52.0 Monocyte 6.7 % 2.0-10.0 Eosinophil 2.2 % 0.0-5.0 Basophil 1.0 % 0.0-4.0 Abs Neutrophils 5.2 K/uL 2.1-8.0 Abs Lymphocytes 2.2 K/uL 0.8-5.5 Abmon 0.5 K/uL 0.1-1.0 Abs Eosinophils 0.2 K/uL 0.0-0.5 Abs Basophils 0.1 K/uL 0.0-0.3 Iron Panel 06/26/2014 [facility] Iron, Total 112 g/dL 50-170 Transferrin 214.6 mg/dL 203.0-362.0 Tibc (calc) 300 g/dL 261-478 % Iron Saturation 37.3 % 13.0-45.0 Affirm 06/26/2014 [facility] Trichomonas Vaginalis Negative Negative Gardnerella Vaginalis Negative Negative Shantelle Species Negative Negative CBC With Auto Diff 01/01/2014 [facility] WBC 6.8 K/uL 4.1-11.0 RBC 4.00 M/uL 4.00-5.40 Hemoglobin 12.9 gm/dL 12.0-16.0 Hematocrit 37.6 % 36.0-47.0 MCV 94.0 fL 80.0-97.0 MCH 32.3 pg High 27.0-32.0 MCHC 34.3 g/dL 32.0-36.0 RDW 12.7 % 11.5-14.5 PLT Count 219 K/ul 140-400 Neutrophil 64.0 % 35.0-75.0 Lymphocyte 26.8 % 16.0-52.0 Monocyte 6.5 % 2.0-10.0 Eosinophil 2.4 % 0.0-5.0 Basophil 0.3 % 0.0-4.0 Abs Neutrophils 4.3 K/uL 2.1-8.0 Abs Lymphocytes 1.8 K/uL 0.8-5.5 Abmon 0.4 K/uL 0.1-1.0 Abs Eosinophils 0.2 K/uL 0.0-0.5 Abs Basophils 0.0 K/uL 0.0-0.3 Laboratory test finding 01/01/2014 [facility] TSH 0.57 uIU/mL 0.34-5.60 Vit D,25 Hydroxy 47 ng/mL 31-100 Comprehensive Metabolic (CMP) 01/01/2014 [facility] Sodium 137 mmol/L 134- 142 Potassium 4.3 mmol/L 3.5-5.2 Chloride 100 mmol/L 97-109 Carbon Dioxide 32 mmol/L 24-34 Glucose 97 mg/dL 70-105 BUN 13 mg/dL 6-26 Creatinine 0.9 mg/dL 0.5-1.4 Calcium 9.6 mg/dL 8.5-10.2 Total Protein 6.7 g/dL 6.0-8.0 Albumin 4.5 g/dL 3.6-4.9 Globulin 2.2 g/dL 2.0-3.5 A/G Ratio 2.0 Ratio 1.0-2.2 Total Bilirubin 0.5 mg/dL 0.1-1.3 Alkaline Phosphatase 51 U/L 24-140 Alt 41 U/L 3-42 Ast 26 U/L 8-42 Anion Gap 9 mmol/L 6-14 Sheryl Egfr >60 >60 54 Non Sheryl Egfr >60 >60 55 Lipid 01/01/2014 [facility] Cholesterol 162 mg/dL 50-199 Triglycerides 253 mg/dL High 30-200 HDL 32 mg/dL Low 35-85 56 Chol/ HDL Ratio 5.1 ratio 3.7-5.6 VLDL 51 mg/dL High 2-29 LDL (Calc) 79 mg/dL 20-99 57 Laboratory test finding 01/01/2014 [facility] Pap SEE NOTE 58 Laboratory test finding 12/16/2012 [facility] Pap SEE NOTE 59 CBC With Auto Diff 11/14/2012 [facility] WBC 6.8 K/uL 4.1-11.0 RBC 4.15 M/uL 4.00-5.40 Hemoglobin 13.5 gm/dL 12.0-16.0 Hematocrit 39.8 % 36.0-47.0 MCV 95.8 fL 80.0-97.0 MCH 32.4 pg High 27.0-32.0 MCHC 33.8 g/dL 32.0-36.0 RDW 12.9 % 11.5-14.5 PLT Count 211 K/ul 140-400 Neutrophil 62.1 % 35.0-75.0 Lymphocyte 29.7 % 16.0-52.0 Monocyte 6.9 % 2.0-10.0 Eosinophil 0.6 % 0.0-5.0 Basophil 0.7 % 0.0-4.0 Abs Neutrophils 4.2 K/uL 2.1-8.0 Abs Lymphocytes 2.0 K/uL 0.8-5.5 Abs Monocytes 0.5 K/uL 0.1-1.0 Abs Eosinophils 0.0 K/uL 0.0-0.5 Abs Basophils 0.0 K/uL 0.0-0.3 Laboratory test finding 11/14/2012 [facility] TSH 0.93 uIU/mL 0.34-5.60 Vit D,25 Hydroxy 48 ng/mL 31-100 Laboratory test finding 12/15/2011 [facility] TSH 0.49 uIU/mL 0.34-5.60 Vit D,25 Hydroxy 40 ng/mL 31-100 [facility] Pap SEE NOTE 60 Comprehensive Metabolic (CMP) 10/28/2011 [facility] Sodium 137 mmol/L 134- 142 61 Potassium 4.4 mmol/L 3.5-5.2 Chloride 101 mmol/L 97-109 Carbon Dioxide 29 mmol/L 24-34 Glucose 74 mg/dL 70-105 BUN 15 mg/dL 6-26 Creatinine 0.8 mg/dL 0.5-1.4 Calcium 9.4 mg/dL 8.5-10.2 BUN/CR 19 ratio 12-20 Total Protein 7.0 g/dL 6.0-8.0 Albumin 4.5 g/dL 3.6-4.9 Globulin 2.5 g/dL 2.0-3.5 A/G Ratio 1.8 Ratio 1.0-2.2 Total Bilirubin 0.6 mg/dL 0.1-1.3 Alkaline Phosphatase 49 U/L 24-140 Alt 60 U/L High 3-42 Ast 41 U/L 8-42 Anion Gap 11 mmol/L 6-14 Sheryl Egfr >60 >60 62 Non Sheryl Egfr >60 >60 63 CBC With Auto Diff 10/28/2011 [facility] WBC 8.0 K/uL 4.1-11.0 RBC 4.22 M/uL 4.00-5.40 Hemoglobin 13.6 gm/dL 12.0-16.0 Hematocrit 40.0 % 36.0-47.0 MCV 94.8 fL 80.0-97.0 MCH 32.3 pg High 27.0-32.0 MCHC 34.0 g/dL 32.0-36.0 RDW 13.1 % 11.5-14.5 PLT Count 212 K/ul 140-400 Neutrophil 69.4 % 35.0-75.0 Lymphocyte 22.9 % 16.0-52.0 Monocyte 5.6 % 2.0-10.0 Eosinophil 1.7 % 0.0-5.0 Basophil 0.4 % 0.0-4.0 Abs Neutrophils 5.5 K/uL 2.1-8.0 Abs Lymphocytes 1.8 K/uL 0.8-5.5 Abs Monocytes 0.4 K/uL 0.1-1.0 Abs Eosinophils 0.1 K/uL 0.0-0.5 Abs Basophils 0.0 K/uL 0.0-0.3 CBC With Auto Diff 07/21/2011 [facility] WBC 8.0 K/uL 4.1-11.0 64 RBC 4.16 M/uL 4.00-5.40 Hemoglobin 14.1 gm/dL 12.0-16.0 Hematocrit 40.6 % 36.0-47.0 MCV 97.7 fL High 80.0-97.0 MCH 33.9 pg High 27.0-32.0 MCHC 34.7 g/dL 32.0-36.0 RDW 13.0 % 11.5-14.5 PLT Count 305 K/ul 140-400 Neutrophil 70.8 % 35.0-75.0 Lymphocyte 22.9 % 16.0-52.0 Monocyte 5.1 % 2.0-10.0 Eosinophil 0.3 % 0.0-5.0 Basophil 0.9 % 0.0-4.0 Abs Neutrophils 5.7 K/uL 2.1-8.0 Abs Lymphocytes 1.8 K/uL 0.8-5.5 Abs Monocytes 0.4 K/uL 0.1-1.0 Abs Eosinophils 0.0 K/uL 0.0-0.5 Abs Basophils 0.1 K/uL 0.0-0.3 Comprehensive Metabolic (CMP) 07/21/2011 [facility] Sodium 140 mmol/L 135- 144 Potassium 4.7 mmol/L 3.6-5.2 Chloride 104 mmol/L 97-110 Carbon Dioxide 30 mmol/L 23-32 Glucose 80 mg/dL 70-105 BUN 12 mg/dL 6-22 Creatinine 0.8 mg/dL 0.5-1.3 Calcium 9.9 mg/dL 8.6-10.2 BUN/CR 15 ratio 12-20 Total Protein 7.2 g/dL 5.8-7.8 Albumin 4.4 g/dL 3.5-4.8 Globulin 2.8 g/dL 2.0-3.5 A/G Ratio 1.6 Ratio 1.0-2.2 Total Bilirubin 0.8 mg/dL 0.3-1.2 Alkaline Phosphatase 65 U/L 24-140 Alt 39 U/L 5-45 Ast 25 U/L 12-40 Anion Gap 11 mmol/L 8-16 Non Sheryl Egfr >60 >60 65 Sheryl Egfr >60 >60 66 Laboratory test finding 07/21/2011 [facility] TSH 0.46 uIU/mL 0.34-5.60 Vit D,25 Hydroxy 41 ng/mL 31-100 Affirm 07/21/2011 [facility] Trichomonas Vaginalis Negative Negative Gardnerella Vaginalis Negative Negative Shantelle Species Negative Negative Laboratory test 07/21/2011 [facility] Urine Culture Microbiology res 67 finding <SEE NOTE> Laboratory test 11/25/2010 [facility] Pap SEE NOTE 68 finding CBC With Auto Diff 11/25/2010 [facility] WBC 6.8 K/uL 4.1-11.0 69 RBC 4.04 M/uL 4.00-5.40 Hemoglobin 13.4 gm/dL 12.0-16.0 Hematocrit 39.5 % 36.0-47.0 MCV 97.9 fL High 80.0-97.0 MCH 33.1 pg High 27.0-32.0 MCHC 33.8 g/dL 32.0-36.0 RDW 12.5 % 11.5-14.5 PLT Count 288 K/ul 140-400 Neutrophil 60.6 % 35.0-75.0 Lymphocyte 31.3 % 16.0-52.0 Monocyte 5.9 % 2.0-10.0 Eosinophil 1.7 % 0.0-5.0 Basophil 0.5 % 0.0-4.0 Abs Neutrophils 4.1 K/uL 2.1-8.0 Abs Lymphocytes 2.1 K/uL 0.8-5.5 Abs Monocytes 0.4 K/uL 0.1-1.0 Abs Eosinophils 0.1 K/uL 0.0-0.5 Abs Basophils 0.0 K/uL 0.0-0.3 Comprehensive Metabolic (CMP) 11/25/2010 [facility] Sodium 143 mmol/L 135- 144 Potassium 4.8 mmol/L 3.6-5.2 Chloride 106 mmol/L 97-110 Carbon Dioxide 28 mmol/L 23-32 Glucose 89 mg/dL 70-105 BUN 10 mg/dL 6-22 Creatinine 0.9 mg/dL 0.5-1.3 Calcium 9.9 mg/dL 8.6-10.2 BUN/CR 11 ratio Low 12-20 Total Protein 7.1 g/dL 5.8-7.8 Albumin 4.5 g/dL 3.5-4.8 Globulin 2.6 g/dL 2.0-3.5 A/G Ratio 1.7 Ratio 1.0-2.2 Total Bilirubin 0.7 mg/dL 0.3-1.2 Alkaline Phosphatase 54 U/L 24-140 Alt 19 U/L 5-45 Ast 23 U/L 12-40 Anion Gap 14 mmol/L 8-16 Non Sheryl Egfr >60 >60 70 Sheryl Egfr >60 >60 71 Iron Panel 11/25/2010 [facility] Iron, Total 91 g/dL 28-170 Transferrin 220 mg/dL 192-382 Tibc (calc) 307 g/dL 261-478 % Iron Saturation 29.6 % 13.0-45.0 Laboratory test finding 11/25/2010 [facility] TSH 0.21 uIU/mL Low 0.34-5.60 Vit D,25 Hydroxy 48 ng/mL 31-100 Laboratory test 10/28/2009 [facility] (Do not Use) [facility] Pap - (SEE NOTE) 72, 73 finding [facility] [place] [address] [phone] Laboratory test 09/19/2009 [facility] (Do not Use) Vaginitis (SEE NOTE) 74, 75 finding [facility] [place] [address] Test(Affirm) [phone] -[place] Laboratory test 06/25/2009 [facility] (Do not Use) Throat PO (SEE NOTE) 76 finding [facility] Culture - [place], [place] [id number] [phone] CBC With Auto 05/17/2009 [facility] (Do not Use) WBC 7.4 K/ul 4.0-1 77 Diff [facility] [address] [place], [place] [id number] [phone] RBC 4.02 M/ul Low 4.20-5.40 Hemoglobin 13.4 GM/dl 12.5-16.0 Hematocrit 38.5 % 36.0-47.0 MCV 95.6 FL 80.0-97.0 MCH 33.2 pg High 27.0-31.0 MCHC 34.8 g/dL 32.0-36.0 RDW 12.8 % 11.5-14.5 Platelet Count 256 K/ul 140-440 Neutrophils 68.1 % 50-70 Lymphocytes 25.3 % 20-44 Monocytes 4.8 % 2-9 Eosinophil 1.0 % 0-4 Basophil 0.8 % 0-2 Absolute Neutrophils 5.1 K/ul 2.05-7.63 Absolute Lymphocytes 1.9 K/ul 0.8-4.8 Absolute Monocytes 0.4 K/ul 0.1-1.0 Absolute Eosinophils 0.1 K/ul 0.1-0.5 Absolute Basophils 0.1 K/ul 0.0-0.3 Hematology Comment (Comm2) N/A Laboratory test 05/17/2009 [facility] (Do not Use) TSH 0.46 uIU/ml 0.34 -5.60 finding [facility] [place] [address] [phone] Vitamin D, 25 Hydroxy 31 ng/mL 31-100 Laboratory test 02/27/2009 [facility] (Do not Use) Vaginitis Direct (SEE NOTE) 78 finding [facility] Test(Aff[place]) [place] [address] [phone] Laboratory test 10/18/2008 [facility] (Do not Use) [facility] Pap - [place] (SEE NOTE) 79 finding [facility] [place], [place] [id number] [phone] Laboratory test 10/18/2008 [facility] (Do not Use) Vitamin D, 25 29 ng/mL Low 31-10 80 finding [facility] Hydroxy 0 [place] [address] [phone] Lipid Panel 10/18/2008 [facility] (Do not Use) Cholesterol 166 mg/dL 50 -19 [facility] [address] [place], [place] [id number] [phone] Triglycerides 142 mg/dL 10-150 HDL 30 mg/dL Low 35-85 81 Chol/HDL Ratio 5.5 Ratio 82 VLDL 28 mg/dL LDL (Calc) 108 mg/dL 20-129 83 Iron Panel 10/18/2008 [facility] (Do not Use) Iron, Total 85 g/dL 28- 170 [facility] [place], [place] [id number] [phone] Transferrin 220 mg/dL 192-382 Tibc (Calc) 308 g/dL 261-478 % Saturation (Calc) 27.6 % 13.0-45.0 CBC With Auto Diff 10/18/2008 [facility] (Do not Use) WBC 7.1 K/ul 4.0- 10.9 [facility] [place] [address] [phone] RBC 4.17 M/ul Low 4.20-5.40 Hemoglobin 13.5 GM/dl 12.5-16.0 Hematocrit 39.5 % 36.0-47.0 MCV 94.8 FL 80.0-97.0 MCH 32.4 pg High 27.0-31.0 MCHC 34.2 g/dL 32.0-36.0 RDW 13.0 % 11.5-14.5 Platelet Count 303 K/ul 140-440 Neutrophils 62.3 % 50-70 Lymphocytes 27.3 % 20-44 Monocytes 6.9 % 2-9 Eosinophil 2.6 % 0-4 Basophil 0.9 % 0-2 Absolute Neutrophils 4.4 K/ul 2.05-7.63 Absolute Lymphocytes 1.9 K/ul 0.8-4.8 Absolute Monocytes 0.5 K/ul 0.1-1.0 Absolute Eosinophils 0.2 K/ul 0.1-0.5 Absolute Basophils 0.1 K/ul 0.0-0.3 Hematology Comment (Comm2) N/A Laboratory test 10/18/2008 [facility] (Do not Use) TSH 0.43 uIU/ml 0.34 -5.60 finding [facility] [place] [address] [phone] Laboratory test 10/18/2008 [facility] (Do not Use) Vaginitis (SEE NOTE) 84 finding [facility] [place] [address] Test(Affirm) [phone] CBC With Auto 03/26/2008 [facility] (Do not Use) WBC 7.7 K/ul 4.0-10.9 Diff [facility] [place] [address] [phone] RBC 3.99 M/ul Low 4.20-5.40 Hemoglobin 12.9 GM/dl 12.5-16.0 Hematocrit 37.6 % 36.0-47.0 MCV 94.2 FL 80.0-97.0 MCH 32.3 pg High 27.0-31.0 MCHC 34.3 g/dL 32.0-36.0 RDW 12.7 % 11.5-14.5 Platelet Count 321 K/ul 140-440 Neutrophils 69.4 % 50-70 Lymphocytes 23.5 % 20-44 Monocytes 4.4 % 2-9 Eosinophil 1.9 % 0-4 Basophil 0.8 % 0-2 Absolute Neutrophils 5.3 K/ul 2.05-7.63 Absolute Lymphocytes 1.8 K/ul 0.8-4.8 Absolute Monocytes 0.3 K/ul 0.1-1.0 Absolute Eosinophils 0.1 K/ul 0.1-0.5 Absolute Basophils 0.1 K/ul 0.0-0.3 Laboratory test 03/26/2008 [facility] (Do not Use) TSH 0.38 uIU/ml 0.34 -5.60 finding [facility] [place] [address] [phone] Laboratory test 09/29/2007 [facility] (Do not Use) Vitamin D, 25 26 ng/mL 19-58 finding [facility] [place] [address] [phone] CBC With Auto 09/29/2007 [facility] (Do not Use) WBC 5.5 K/ul 4.0-10.9 Diff [facility] [place] [address] [phone] RBC 4.25 M/ul 4.20-5.40 Hemoglobin 13.6 GM/dl 12.5-16.0 Hematocrit 38.8 % 36.0-47.0 MCV 91.1 FL 80.0-97.0 MCH 32.1 pg High 27.0-31.0 MCHC 35.2 g/dL 32.0-36.0 RDW 11.4 % Low 11.5-14.5 Platelet Count 312 K/ul 140-440 Neutrophils 66.3 % 50-70 Lymphocytes 26.5 % 20-44 Monocytes 7.1 % 2-9 Eosinophil 0.1 % 0-4 Basophil 0.0 % 0-2 Absolute Neutrophils 3.6 K/ul 2.05-7.63 Absolute Lymphocytes 1.5 K/ul 0.8-4.8 Absolute Monocytes 0.4 K/ul 0.1-1.0 Absolute Eosinophils 0.0 K/ul Low 0.1-0.5 Absolute Basophils 0.0 K/ul Low 0.1-0.3 Laboratory test 09/29/2007 [facility] (Do not Use) TSH 0.43 uIU/ml 0.34 -5.60 finding [facility] [place] [address] [phone] Basic (BMP) 09/29/2007 [facility] (Do not Use) Sodium 141 mmol/L 135- 144 [facility] [place], [place] [id number] [phone] Potassium 4.3 mmol/L 3.6-5.2 Chloride 103 mmol/L 97-110 Carbon Dioxide 30 mmol/L 23-33 Glucose 93 mg/dL 70-105 BUN 12 mg/dL 6-22 Creatinine 0.7 mg/dL 0.5-1.3 BUN/CR 17 Ratio 12.0-20.0 Anion Gap 12 mmol/L 8-16 Calcium 9.6 mg/dL 8.6-10.2 GFR Calculation > 60 mL/min 85 GFR For > 60 mL/min 86 Laboratory test 09/28/2006 [facility] (Do not Use) Papbryear, SEE REFERENCE 87 finding [facility] LA <SEE NOTE> [place] [address] [phone] Laboratory test 04/16/2006 [facility] (Do not Use) TSH 0.69 uIU/ml 0.50 - finding [facility] [address] [place] [address] [phone] CBC With Auto 04/16/2006 [facility] (Do not Use) WBC 8.3 K/ul 4.0-1 Diff [facility] [address] [place], [place] [id number] [phone] RBC 3.90 M/ul Low 4.20-5.40 Hemoglobin 13.1 GM/dl 12.5-16.0 Hematocrit 36.9 % 36.0-47.0 MCV 94.6 FL 80.0-97.0 MCH 33.7 pg High 27.0-31.0 MCHC 35.6 g/dL 32.0-36.0 RDW 12.1 % 11.5-14.5 Platelet Count 321 K/ul 140-440 Neutrophils 72.4 % High 50-70 Lymphocytes 22.7 % 20-44 Monocytes 4.7 % 2-9 Eosinophil 0.0 % 0-4 Basophil 0.2 % 0-2 Absolute Neutrophils 6.0 K/ul 2.05-7.63 Absolute Lymphocytes 1.9 K/ul 0.8-4.8 Absolute Monocytes 0.4 K/ul 0.1-1.0 Absolute Eosinophils 0.0 K/ul Low 0.1-0.5 Absolute Basophils 0.0 K/ul Low 0.1-0.3 Iron Panel 04/16/2006 [facility] (Do not Use) Iron, Total 69 g/dL 28- 170 [facility] [place], [place] [id number] [phone] Transferrin 190 mg/dL Low 192-382 Tibc (Calc) 266 g/dL 261-478 % Saturation (Calc) 25.9 % 13.0-45.0 CBC With Auto Diff 01/12/2006 [facility] (Do not Use) WBC 7.8 K/ul 4.0- 10.9 88 [facility] [place] [address] [phone] RBC 4.18 M/ul Low 4.20-5.40 Hemoglobin 13.4 GM/dl 12.5-16.0 Hematocrit 39.8 % 36.0-47.0 MCV 95.1 FL 80.0-97.0 MCH 32.1 pg High 27.0-31.0 MCHC 33.8 g/dL 32.0-36.0 RDW 11.9 % 11.5-14.5 Platelet Count 320 K/ul 140-440 Neutrophils 63.2 % 50-70 Lymphocytes 25.5 % 20-44 Monocytes 7.4 % 2-9 Eosinophil 2.9 % 0-4 Basophil 1.0 % 0-2 Absolute Neutrophils 4.9 K/ul 2.05-7.63 Absolute Lymphocytes 2.0 K/ul 0.8-4.8 Absolute Monocytes 0.6 K/ul 0.1-1.0 Absolute Eosinophils 0.2 K/ul 0.1-0.5 Absolute Basophils 0.1 K/ul 0.1-0.3 Iron Panel 01/12/2006 [facility] (Do not Use) Iron, Total 59 g/dL 28- 170 [facility] [place] [address] [phone] Transferrin 178 mg/dL Low 192-382 Tibc (Calc) 249 g/dL Low 261-478 % Saturation (Calc) 23.7 % 13.0-45.0 Laboratory test 01/12/2006 [facility] (Do not Use) TSH 0.31 uIU/ml Low 0.50-6.00 finding [facility] [place] [address] [phone] Laboratory test 10/20/2005 [facility] (Do not Use) Urine NO GROWTH finding [facility] [place] [address] [phone] Laboratory test 09/14/2005 [facility] (Do not Use) TSH 1.41 uIU/ml 0.50 -6.00 finding [facility] [place] [address] [phone] Hematocrit 41.1 % 36.0-47.0 Iron Profile 03/13/2005 [facility] (Do not Use) Iron, 136 g/dL 50- 170 (Iron,Tibc,%Sat) [facility] [place] [address] [phone] Total Iron Binding Capacity 248 g/dL Low 261-478 % Iron Saturation 54.8 % High 13.0-45.0 CBC 03/13/2005 [facility] (Do not Use) WBC 7.6 K/ul 4.1-10.9 [facility] [place] [address] [phone] RBC 4.44 M/ul 4.20-6.30 Hemoglobin 14.2 GM/dl 12.5-15.0 Hematocrit 42.7 % 36.0-47.0 MCV 96.1 FL 80.0-97.0 MCH 32.0 pg 26.0-32.0 MCHC 33.3 g/dL 31.0-36.0 RDW 11.8 % 11.5-14.5 Platelet Count 266 K/ul 140-440 Neutrophils 64.6 % 50-70 Lymphocytes 26.4 % 20-44 Monocytes 6.0 % 2-9 Eosinophil 3.0 % 0-4 Basophil 0.0 % 0-2 Absolute Neutrophils 4.9 K/ul 2.05-7.63 Absolute Lymphocytes 2.0 K/ul 0.8-4.8 Absolute Monocytes 0.5 K/ul 0.1-1.0 Absolute Eosinophils 0.2 K/ul 0.1-0.5 Absolute Basophils 0.0 K/ul Low 0.1-0.3 PTH,Intact 03/13/2005 [facility] (Do not Use) Intact PTH 30.7 10.0- 73.0 (Centrex)-Freeze [facility] pg/[place] [address] [phone] Laboratory test 03/13/2005 [facility] (Do not Use) Vitamin D, 17.8 8.9- 46.7 finding [facility] 25-Hydroxy ng/mL [place] [phone] Calcium, Ionized - Centrex 5.5 mg/dL 4.5-5.6 PTH,Intact 03/13/2005 [facility] (Do not Use) Calcium, 8.8 mg/dL 8.4- 10.6 (Centrex)-Freeze [facility] Serum Sample [place], [place] [phone] Intact PTH 30.7 pg/mL 10.0-73.0 Calcium (Calc) 8.8 mg/dL 8.4-10.6 Laboratory test 10/24/2004 [facility] (Do not Use) Prolactin 45.2 ng/ml 89 finding [facility] [place], [place] [id number] [phone] TSH 1.11 uIU/ml 0.50-6.00 CBC 10/24/2004 [facility] (Do not Use) WBC 7.7 K/ul 4.1-10.9 [facility] [place], [place] [id number] [phone] RBC 4.20 M/ul 4.20-6.30 Hemoglobin 13.7 GM/dl 12.5-15.0 Hematocrit 39.8 % 37.0-51.0 MCV 94.8 FL 80.0-97.0 MCH 32.6 pg High 26.0-32.0 MCHC 34.3 g/dL 31.0-36.0 RDW 11.9 % 11.5-14.5 Platelet Count 277 K/ul 140-440 Neutrophils 65.5 % 50-70 Lymphocytes 26.0 % 20-44 Monocytes 6.1 % 2-9 Eosinophil 2.4 % 0-4 Basophil 0.0 % 0-2 Absolute Neutrophils 5.0 K/ul 2.05-7.63 Absolute Lymphocytes 2.0 K/ul 0.8-4.8 Absolute Monocytes 0.5 K/ul 0.1-1.0 Absolute Eosinophils 0.2 K/ul 0.1-0.5 Absolute Basophils 0.0 K/ul Low 0.1-0.3 Laboratory test 07/28/2004 [facility] (Do not Use) TSH 0.93 uIU/ml 0.50 -6.00 finding [facility] [place] [address] [phone] HCG, Quantitative <2 mIU/ml 90 Prolactin 37.0 ng/ml 91 CBC 02/19/2004 [facility] (Do not Use) WBC 8.6 K/ul 4.1-10.9 [facility] [place] [address] [phone] RBC 4.13 M/ul Low 4.20-6.30 Hemoglobin 13.6 GM/dl 12.5-15.0 Hematocrit 40.1 % 37.0-51.0 MCV 97.2 FL High 80.0-97.0 MCH 32.8 pg High 26.0-32.0 MCHC 33.8 g/dL 31.0-36.0 RDW 12.4 % 11.5-14.5 Platelet Count 275 K/ul 140-440 Neutrophils 58.8 % 50-70 Lymphocytes 28.8 % 20-44 Monocytes 5.8 % 2-9 Eosinophil 5.9 % High 0-4 Basophil 0.7 % 0-2 Absolute Neutrophils 5.0 K/ul 2.05-7.63 Absolute Lymphocytes 2.5 K/ul 0.8-4.8 Absolute Monocytes 0.5 K/ul 0.1-1.0 Absolute Eosinophils 0.5 K/ul 0.1-0.5 Absolute Basophils 0.1 K/ul 0.1-0.3 Laboratory test 02/19/2004 [facility] (Do not Use) TSH 0.85 uIU/ml 0.50 -6.00 finding [facility] [place] [address] [phone] Iron Profile 02/19/2004 [facility] (Do not Use) Iron, Total 86 g/dL 50-170 (Iron,Tibc,%Sat) [facility] [place] [address] [phone] Total Iron Binding Capacity 261 g/dL 261-478 % Iron Saturation 32.9 % 13.0-45.0 Laboratory test 11/22/2003 [facility] (Do not Use) Ceruloplasmin 32.0 mg/ dL 14.0-50.0 finding [facility] [place] [address] [phone] CBC 11/22/2003 [facility] (Do not Use) WBC 6.1 K/ul 4.1-10.9 [place] [address] [phone] RBC 4.33 M/ul 4.20-6.30 Hemoglobin 13.1 GM/dl 12.5-15.0 Hematocrit 39.6 % 37.0-51.0 MCV 91.5 FL 80.0-97.0 MCH 30.3 pg 26.0-32.0 MCHC 33.1 g/dL 31.0-36.0 RDW 18.1 % High 11.5-14.5 Platelet Count 250 K/ul 140-440 Neutrophils 62.4 % 50-70 Lymphocytes 27.7 % 20-44 Monocytes 6.1 % 2-9 Eosinophil 3.2 % 0-4 Basophil 0.6 % 0-2 Absolute Neutrophils 3.8 K/ul 2.05-7.63 Absolute Lymphocytes 1.7 K/ul 0.8-4.8 Absolute Monocytes 0.4 K/ul 0.1-1.0 Absolute Eosinophils 0.2 K/ul 0.1-0.5 Absolute Basophils 0.0 K/ul Low 0.1-0.3 Laboratory test 11/22/2003 [facility] (Do not Use) TSH 1.13 uIU/ml 0.50 -6.00 [place] [address] [phone] Ferritin 27.9 ng/ml 6-115 Hepatic Liver 11/22/2003 [facility] (Do not Use) Total Protein 7.3 g/dL 6.2-8.3 [place] [address] [phone] Albumin 4.2 g/dL 3.5-5.0 Total Bilirubin 0.7 mg/dL 0.1-1.3 Direct Bilirubin 0.0 mg/dL 0.0-0.4 Ast 38 U/L 8-42 Alt 66 U/L High 3-42 Alkaline Phosphatase 63 U/L 24-108 Laboratory test 11/22/2003 [facility] (Do not Use) Tim Screen NEGATIVE [address] [place] [address] [phone] Iron Profile 11/22/2003 [facility] (Do not Use) Iron, Total 79 g/dL 50-170 (Iron,Tibc,%Sat) [facility] [place] [address] [phone] Total Iron Binding Capacity 300 g/dL 261-478 % Iron Saturation 26.3 % 13.0-45.0 Laboratory test 10/26/2003 [facility] (Do not Use) TSH 6.29 uIU/ml High 0.50-6.00 finding [facility] [place] [address] [phone] Vitamin B12 729 pg/mL 230-1050 Folate Folate result gr <SEE NOTE> ng/ml 3.0-16.0 93 Hepatic Liver 10/26/2003 [facility] (Do not Use) Total Protein 7.4 g/dL 6.2-8.3 [place] [address] [phone] Albumin 4.5 g/dL 3.5-5.0 Total Bilirubin 0.7 mg/dL 0.1-1.3 Direct Bilirubin 0.1 mg/dL 0.0-0.4 Ast 50 U/L High 8-42 Alt 88 U/L High 3-42 Alkaline Phosphatase 59 U/L 24-108 Iron Profile 10/26/2003 [facility] (Do not Use) Iron, Total 88 g/dL 50-170 (Iron,Tibc,%Sat) [place] [address] [phone] Total Iron Binding Capacity 314 g/dL 261-478 % Iron Saturation 28.0 % 13.0-45.0 CBC 10/26/2003 [facility] (Do not Use) WBC 7.2 K/ul 4.1-10.9 [facility] [place] [address] [phone] RBC 4.25 M/ul 4.20-6.30 Hemoglobin 12.4 GM/dl Low 12.5-15.0 Hematocrit 37.1 % 37.0-51.0 MCV 87.4 FL 80.0-97.0 MCH 29.2 pg 26.0-32.0 MCHC 33.4 g/dL 31.0-36.0 RDW 19.0 % High 11.5-14.5 Platelet Count 291 K/ul 140-440 Neutrophils 59.1 % 50-70 Lymphocytes 29.7 % 20-44 Monocytes 5.7 % 2-9 Eosinophil 5.5 % High 0-4 Basophil 0.0 % 0-2 Absolute Neutrophils 4.3 K/ul 2.05-7.63 Absolute Lymphocytes 2.1 K/ul 0.8-4.8 Absolute Monocytes 0.4 K/ul 0.1-1.0 Absolute Eosinophils 0.4 K/ul 0.1-0.5 Absolute Basophils 0.0 K/ul Low 0.1-0.3 Laboratory 10/26/2003 [facility] (Do not Use) Thyroid 253.00 IU/mL High 0.0-35.0 test finding [facility] [address] (Tpo) [phone] Hepatitis 10/26/2003 [facility] (Do not Use) Hepatitis B NEGATIVE Negative Acute Panel [facility] [place] [address] Antigen [phone] Hepatitis B Core Antibody, Igm NEGATIVE 94 Hepatitis A Antibody, Igm NEGATIVE 95 Hepatitis C Antibody NEGATIVE Negative Iron Profile 09/27/2003 [facility] (Do not Use) Iron, 19 g/dL Low 50- 170 (Iron,Tibc,%Sat) [facility] [place] [address] [phone] Total Iron Binding Capacity 407 g/dL 261-478 % Iron Saturation 4.6 % Low 13.0-45.0 CMP 09/27/2003 [facility] (Do not Use) Sodium 139 mmol/L 135-145 [facility] [place] [address] [phone] Potassium 4.5 mmol/L 3.4-5.3 Chloride 105 mmol/L 98-111 Carbon Dioxide 29 mmol/L 22-33 Glucose 85 mg/dL 70-105 BUN 12 mg/dL 6-26 Creatinine 0.8 mg/dL 0.5-1.5 BUN/CR 15 Ratio 12.0-20.0 Calcium 9.1 mg/dL 8.6-10.3 Total Protein 7.2 g/dL 6.2-8.3 Albumin 4.2 g/dL 3.5-5.0 Globulin 3.0 g/dL 2.7-4.3 A/G Ratio 1.4 Ratio 1.0-2.2 Total Bilirubin 0.6 mg/dL 0.1-1.3 Ast 47 U/L High 8-42 Alt 73 U/L High 3-42 Alkaline Phosphatase 54 U/L 24-108 Anion Gap 10 mmol/L 10-20 Laboratory test 09/27/2003 [facility] (Do not Use) TSH 5.06 uIU/ml 0.50 -6.00 finding [facility] [place] [address] [phone] Free T4 0.77 ng/dL 0.75-1.80 CBC 09/27/2003 [facility] (Do not Use) WBC 6.4 K/ul 4.1-10.9 [facility] [place] [address] [phone] RBC 4.10 M/ul Low 4.20-6.30 Hemoglobin 11.1 GM/dl Low 12.5-15.0 Hematocrit 34.5 % Low 37.0-51.0 MCV 84.3 FL 80.0-97.0 MCH 27.1 pg 26.0-32.0 MCHC 32.2 g/dL 31.0-36.0 RDW 15.0 % High 11.5-14.5 Platelet Count 277 K/ul 140-440 Neutrophils 57.6 % 50-70 Lymphocytes 31.3 % 20-44 Monocytes 7.0 % 2-9 Eosinophil 3.8 % 0-4 Basophil 0.3 % 0-2 Absolute Neutrophils 3.8 K/ul 2.05-7.63 Absolute Lymphocytes 2.0 K/ul 0.8-4.8 Absolute Monocytes 0.4 K/ul 0.1-1.0 Absolute Eosinophils 0.2 K/ul 0.1-0.5 Absolute Basophils 0.0 K/ul Low 0.1-0.3 Laboratory test 09/27/2003 [facility] (Do not Use) Hepatitis B NEGATIVE Negative finding [facility] [place] [address] [phone] Laboratory test 05/02/2002 [facility] (Do not Use) Esr 12 MM/HR 0-20 finding [facility] [place] [address] [phone] CBC 05/02/2002 [facility] (Do not Use) WBC 8.9 K/ul 4.1-10.9 [facility] [place], [place] [id number] [phone] RBC 4.08 M/ul Low 4.2-6.3 Hemoglobin 11.3 GM/dl Low 12.0-16.0 Hematocrit 34.5 % Low 37.0-51.0 MCV 84.7 FL 80-97 MCH 27.7 pg 26.0-32.0 MCHC 32.7 g/dL 31.0-36.0 RDW 16.0 % High 11.5-14.5 Platelet Count 242 K/ul 140-440 Neutrophils 54.9 % 50-70 Lymphocytes 23.7 % 20-44 Monocytes 6.8 % 2-9 Eosinophil 13.8 % High 0-4 Basophil 0.8 % 0-2 Absolute Neutrophils 4.9 K/ul 2.05-7.63 Absolute Lymphocytes 2.1 K/ul 0.8-4.8 Absolute Monocytes 0.6 K/ul 0.1-1.0 Absolute Eosinophils 1.2 K/ul High 0.1-0.5 Absolute Basophils 0.1 K/ul 0.1-0.3 1 This sample is drawn by:[facility]. 2 Updated reference range on new analyzer 3 Updated reference range on new analyzer 4 Concerning GFR Guidelines: Normal function or mild renal disease, if clinically at risk: >/=60 mL/min Moderately decreased: 30-59 Severely decreased: 15-29 Renal failure: <15 Glomerular Filtration Rate (GFR) is estimated based on the MDRD equation, which assumes a steady state for creatinine as recommended by the National Kidney Disease Education Program in conjunction with the National Institutes of Health and the National Kidney Foundation. Clinical conditions in which it may be necessary to measure GFR by using clearance methods include extremes of age and body size, severe malnutrition or obesity, diseases of skeletal muscle, paraplegia or quadriplegia, vegetarian diet, rapidly changing kidney function, and calculation of the dose of potentially toxic drugs that are excreted by the kidneys. 5 Concerning GFR Guidelines for Americans: Normal function or mild renal disease, if clinically at risk: >/=60 mL/min Moderately decreased: 30-59 Severely decreased: 15-29 Renal failure: <15 6 Updated Reference Range 7 Per NCEP ATP III Guidelines: Results lower than 40 mg/dL are suggestive of increased risk for coronary artery disease. Results > or=to 60 mg/dL are considered a negative risk factor. 8 Per NCEP ATP III Guidelines: Normal Population <130 Patients with medical conditions: CHD/DM Optimal: <100 Borderline high: 130-159 High: 160-189 Very high: >189 9 Clinical Guidelines for recommended serum 25(OH)Vitamin D Deficient at less than 20 ng/mL Insufficient at 20 to <30 ng/mL Sufficient at 30-100 ng/mL Toxicity at greater than 100 ng/mL 10 [employer]. [facility] [place] [address] CYTOLOGY REPORT Source of Specimen(s): Sure[facility] Vaginal/ Cervical/ Endocervical Pap Smear - One Vial Date of Last Menstrual Period: None Provided Other Clinical Conditions: REFLEX TO HPV ASSAY IF RESULTS OF THIS PAP ARE ASCUS Specimen Adequacy SATISFACTORY FOR EVALUATION PRESENCE OF ENDOCERVICAL/TRANSFORMATION ZONE COMPONENT General Categorization NEGATIVE FOR INTRAEPITHELIAL LESION OR MALIGNANCY Interpretation NEGATIVE FOR INTRAEPITHELIAL LESION OR MALIGNANCY Reported: 06/10/2018 15:01 Electronically Signed Out By Lori MELCHOR(ASCP) mallika ICD9 Code: Z01.411 CPT code: A: [id number] Unless otherwise specified, testing performed by [facility] [place] [address] [place] [address] 11 Updated reference range on new analyzer 12 Updated reference range on new analyzer 13 Concerning GFR Guidelines for Americans: Normal function or mild renal disease, if clinically at risk: >/=60 mL/min Moderately decreased: 30-59 Severely decreased: 15-29 Renal failure: <15 14 Concerning GFR Guidelines: Normal function or mild renal disease, if clinically at risk: >/=60 mL/min Moderately decreased: 30-59 Severely decreased: 15-29 Renal failure: <15 Glomerular Filtration Rate (GFR) is estimated based on the MDRD equation, which assumes a steady state for creatinine as recommended by the National Kidney Disease Education Program in conjunction with the National Institutes of Health and the National Kidney Foundation. Clinical conditions in which it may be necessary to measure GFR by using clearance methods include extremes of age and body size, severe malnutrition or obesity, diseases of skeletal muscle, paraplegia or quadriplegia, vegetarian diet, rapidly changing kidney function, and calculation of the dose of potentially toxic drugs that are excreted by the kidneys. 15 Updated Reference Range 16 Per NCEP ATP III Guidelines: Results lower than 40 mg/dL are suggestive of increased risk for coronary artery disease. Results > or=to 60 mg/dL are considered a negative risk factor. 17 Per NCEP ATP III Guidelines: Normal Population <130 Patients with medical conditions: CHD/DM Optimal: <100 Borderline high: 130-159 High: 160-189 Very high: >189 18 Clinical Guidelines for recommended serum 25(OH)Vitamin D Deficient at less than 20 ng/mL Insufficient at 20 to <30 ng/mL Sufficient at 30-100 ng/mL Toxicity at greater than 100 ng/mL 19 SPECIMEN DESCRIPTION ABSCESS SPECIAL REQUESTS NONE GRAM STAIN MANY (>25/LPF) WHITE BLOOD CELLS NO BACTERIA CULTURE RESULTS FEW STAPHYLOCOCCUS, COAGULASE NEGATIVE REPORT STATUS FINAL 03/05/2018 Unless otherwise specified, testing performed by [facility] [address] [place] [id number] 20 Updated reference range on new analyzer 21 Updated reference range on new analyzer 22 Concerning GFR Guidelines for Americans: Normal function or mild renal disease, if clinically at risk: >/=60 mL/min Moderately decreased: 30-59 Severely decreased: 15-29 Renal failure: <15 23 Concerning GFR Guidelines: Normal function or mild renal disease, if clinically at risk: >/=60 mL/min Moderately decreased: 30-59 Severely decreased: 15-29 Renal failure: <15 Glomerular Filtration Rate (GFR) is estimated based on the MDRD equation, which assumes a steady state for creatinine as recommended by the National Kidney Disease Education Program in conjunction with the National Institutes of Health and the National Kidney Foundation. Clinical conditions in which it may be necessary to measure GFR by using clearance methods include extremes of age and body size, severe malnutrition or obesity, diseases of skeletal muscle, paraplegia or quadriplegia, vegetarian diet, rapidly changing kidney function, and calculation of the dose of potentially toxic drugs that are excreted by the kidneys. 24 Updated Reference Range 25 Clinical Guidelines for recommended serum 25(OH)Vitamin D Deficient at less than 20 ng/mL Insufficient at 20 to <30 ng/mL Sufficient at 30-100 ng/mL Toxicity at greater than 100 ng/mL 26 Per NCEP ATP III Guidelines: Results lower than 40 mg/dL are suggestive of increased risk for coronary artery disease. Results > or=to 60 mg/dL are considered a negative risk factor. 27 Per NCEP ATP III Guidelines: Normal Population <130 Patients with medical conditions: CHD/DM Optimal: <100 Borderline high: 130-159 High: 160-189 Very high: >189 28 Per NCEP ATP III Guidelines: Results lower than 40 mg/dL are suggestive of increased risk for coronary artery disease. Results > or=to 60 mg/dL are considered a negative risk factor. 29 Per NCEP ATP III Guidelines: Normal Population <130 Patients with medical conditions: CHD/DM Optimal: <100 Borderline high: 130-159 High: 160-189 Very high: >189 30 Updated reference range on new analyzer 31 Updated reference range on new analyzer 32 Concerning GFR Guidelines for Americans: Normal function or mild renal disease, if clinically at risk: >/=60 mL/min Moderately decreased: 30-59 Severely decreased: 15-29 Renal failure: <15 33 Concerning GFR Guidelines: Normal function or mild renal disease, if clinically at risk: >/=60 mL/min Moderately decreased: 30-59 Severely decreased: 15-29 Renal failure: <15 Glomerular Filtration Rate (GFR) is estimated based on the MDRD equation, which assumes a steady state for creatinine as recommended by the National Kidney Disease Education Program in conjunction with the National Institutes of Health and the National Kidney Foundation. Clinical conditions in which it may be necessary to measure GFR by using clearance methods include extremes of age and body size, severe malnutrition or obesity, diseases of skeletal muscle, paraplegia or quadriplegia, vegetarian diet, rapidly changing kidney function, and calculation of the dose of potentially toxic drugs that are excreted by the kidneys. 34 Updated reference range on new analyzer 35 FSH Female Normal Values: Mid-Follicular: 3.9-8.8 mIU/mL Mid-cycle Peak: 4.5-22.5 mIU/mL Mid-Luteal: 1.8-5.1 mIU/mL Post-menopausal:16.7-113.6 mIU/mL 36 Lutenizing Hormone Female Normal Values: Mid-Follicular: 2.1-10.9 mIU/mL Mid-cycle Peak: 19.2-103.0 mIU/mL Mid-Luteal: 1.2-12.9 mIU/mL Post-menopausal:10.9-58.6 mIU/mL 37 [facility] [place] [address] CYTOLOGY REPORT Source of Specimen(s): SurePath Vaginal/ Cervical/ Endocervical Pap Smear - One Vial Date of Last Menstrual Period: None Provided Other Clinical Conditions: REFLEX TO HPV ASSAY IF RESULTS OF THIS PAP ARE ASCUS Specimen Adequacy SATISFACTORY FOR EVALUATION PRESENCE OF ENDOCERVICAL/TRANSFORMATION ZONE COMPONENT General Categorization NEGATIVE FOR INTRAEPITHELIAL LESION OR MALIGNANCY Interpretation NEGATIVE FOR INTRAEPITHELIAL LESION OR MALIGNANCY Reported: 03/25/2017 09:35 Electronically Signed Out By Lori MELCHOR(ASCP) mallika ICD9 Code: Z01.419 Unless otherwise specified, testing performed by [facility] [address] [address] 38 NORMAL KIDNEY FUNCTION OR MILD DISEASE - GFR >OR=60 CHRONIC KIDNEY DISEASE - GFR 15 - 59 RENAL FAILURE - GFR <15 Est. GFR calculation based on the MDRD study equation, which assumes a steady state for creatinine. Est. GFR should not be used for medication dosing. 39 PER NCEP ATP III GUIDELINES: RESULTS LOWER THAN 40 MG/DL ARE SUGGESTIVE OF INCREASED RISK FOR CORONARY ARTERY DISEASE. RESULTS > OR=TO 60 MG/DL ARE CONSIDERED A NEGATIVE RISK FACTOR. 40 INTERPRETATION OF CHOL-HDL RATIO CHD RISK FEMALE MALE VERY HIGH >8.3 >14.3 HIGH 5.6- 8.3 6.7- 14.3 AVERAGE 3.7- 5.6 4.0- 6.7 BELOW AVERAGE 2.5- 3.7 2.7- 4.0 PROTECTED <2.5 <2.7 41 PER NCEP ATP III GUIDELINES: OPTIMAL < 100 NEAR OPTIMAL 100 - 129 BORDERLINE HIGH 130 - 159 HIGH 160 - 189 VERY HIGH > 189 42 A REVIEW OF THE LITERATURE SUGGESTS THE FOLLOWING RANGES FOR THE CLASSIFICATION OF 25-OH VITAMIN D STATUS: VITAMIN D STATUS 25-OH VITAMIN D DEFICIENCY <20 NG/ML INSUFFICIENCY 20-30 NG/ML SUFFICIENCY 31 - 100 NG/ML TOXICITY > 100 NG/ML A PEDIATRIC REFERENCE RANGE HAS NOT BEEN ESTABLISHED USING THIS METHOD. 43 IgG antibody to Rubella detected. IgG antibody levels are at a level considered to indicate positive immunity. Unless otherwise specified, [place] [address] 44 IgG antibody to Measles detected. This may indicate that the patient was exposed to Measles through infection or vaccination. Unless otherwise specified, [place] [address] 45 IgG antibody to Mumps detected. This may indicate that the patient was exposed to Mumps through infection or vaccination. Unless otherwise specified, testing performed [place] [address] 46 A MINIMUM LEVEL OF 10 mIU/mL IS SUGGESTED TO INSURE COMPLETE IMMUNITY. IF NEGATIVE OR LESS THAN 10 mIU/mL AT 1 TO 2 MONTHS FOLLOWING THE FINAL DOSE OF THE HEP B VACCINE SERIES, REVACCINATION IS RECOMMENDED FOR SELECT PATIENT POPULATIONS (SEE MMWR 2011:60(7)-JUL 10, 2011). Unless otherwise specified, testing performed by [facility] [place] [address] 47 IgG antibody to VZV detected. This may indicate that the patient was exposed to VZV through infection or vaccination. Unless otherwise specified, testing performed by [facility] [place] [address] 48 Concerning GFR Guidelines for Americans: Normal function or mild renal disease, if clinically at risk: >/=60 mL/min Moderately decreased: 30-59 Severely decreased: 15-29 Renal failure: <15 49 Concerning GFR Guidelines: Normal function or mild renal disease, if clinically at risk: >/=60 mL/min Moderately decreased: 30-59 Severely decreased: 15-29 Renal failure: <15 Glomerular Filtration Rate (GFR) is estimated based on the MDRD equation, which assumes a steady state for creatinine as recommended by the National Kidney Disease Education Program in conjunction with the National Institutes of Health and the National Kidney Foundation. Clinical conditions in which it may be necessary to measure GFR by using clearance methods include extremes of age and body size, severe malnutrition or obesity, diseases of skeletal muscle, paraplegia or quadriplegia, vegetarian diet, rapidly changing kidney function, and calculation of the dose of potentially toxic drugs that are excreted by the kidneys. 50 Microbiology results SOURCE URINE FINAL RESULT No growth 51 [facility] 2[facility]Observe. [facility] [place] [address] GYNECOLOGIC CYTOLOGY REPORT Accession Number: [id number] Source of Specimen(s): A: SurePath Vaginal/ Cervical/ Endocervical Pap Smear - One Vial Clinical Diagnosis and History: Date of Last Menstrual Period: None Provided Other Clinical Conditions: REFLEX TO HPV ASSAY IF RESULTS OF THIS PAP ARE ASCUS Specimen Adequacy Satisfactory for evaluation Presence of endocervical/transformation zone component General Categorization Negative for intraepithelial lesion or malignancy Interpretation NEGATIVE FOR INTRAEPITHELIAL LESION OR MALIGNANCY Reported: 01/31/2015 Electronically Signed Out By Lori MELCHOR(ASCP) [facility]CM[facility]am tena Unless otherwise specified, testing performed by [facility] [place] [address] [place] [address] 52 Concerning GFR Guidelines for Americans: Normal function or mild renal disease, if clinically at risk: >/=60 mL/min Moderately decreased: 30-59 Severely decreased: 15-29 Renal failure: <15 53 Concerning GFR Guidelines: Normal function or mild renal disease, if clinically at risk: >/=60 mL/min Moderately decreased: 30-59 Severely decreased: 15-29 Renal failure: <15 Glomerular Filtration Rate (GFR) is estimated based on the MDRD equation, which assumes a steady state for creatinine as recommended by the National Kidney Disease Education Program in conjunction with the National Institutes of Health and the National Kidney Foundation. Clinical conditions in which it may be necessary to measure GFR by using clearance methods include extremes of age and body size, severe malnutrition or obesity, diseases of skeletal muscle, paraplegia or quadriplegia, vegetarian diet, rapidly changing kidney function, and calculation of the dose of potentially toxic drugs that are excreted by the kidneys. 54 Concerning GFR Guidelines for Americans: Normal function or mild renal disease, if clinically at risk: >/=60 mL/min Moderately decreased: 30-59 Severely decreased: 15-29 Renal failure: <15 55 Concerning GFR Guidelines: Normal function or mild renal disease, if clinically at risk: >/=60 mL/min Moderately decreased: 30-59 Severely decreased: 15-29 Renal failure: <15 Glomerular Filtration Rate (GFR) is estimated based on the MDRD equation, which assumes a steady state for creatinine as recommended by the National Kidney Disease Education Program in conjunction with the National Institutes of Health and the National Kidney Foundation. Clinical conditions in which it may be necessary to measure GFR by using clearance methods include extremes of age and body size, severe malnutrition or obesity, diseases of skeletal muscle, paraplegia or quadriplegia, vegetarian diet, rapidly changing kidney function, and calculation of the dose of potentially toxic drugs that are excreted by the kidneys. 56 Per NCEP ATP III Guidelines: Results lower than 40 mg/dL are suggestive of increased risk for coronary artery disease. Results > or=to 60 mg/dL are considered a negative risk factor. 57 Per NCEP ATP III Guidelines: Normal Population <130 Patients with medical conditions: CHD/DM Optimal: <100 Borderline high: 130-159 High: 160-189 Very high: >189 58 [address]. [facility] [place] [address] GYNECOLOGIC CYTOLOGY REPORT Accession Number: [id number] Source of Specimen(s): A: SurePath Vaginal/ Cervical/ Endocervical Pap Smear - One Vial Clinical Diagnosis and History: Date of Last Menstrual Period: None Provided Other Clinical Conditions: REFLEX TO HPV ASSAY IF RESULTS OF THIS PAP ARE ASCUS Specimen Adequacy Satisfactory for evaluation Presence of endocervical/transformation zone component General Categorization Negative for intraepithelial lesion or malignancy Interpretation NEGATIVE FOR INTRAEPITHELIAL LESION OR MALIGNANCY Reported: 01/03/2014 Electronically Signed Out By Lori MELCHOR(ASCP) [facility] dss Unless otherwise specified, testing performed by [facility] [address] [place] [address] [address] [place] [id number] GYNECOLOGIC CYTOLOGY REPORT Accession Number: [id number] Source of Specimen(s): A: SurePath Vaginal/ Cervical/ Endocervical Pap Smear - One Vial Clinical Diagnosis and History: Date of Last Menstrual Period: None Provided Other Clinical Conditions: REFLEX TO DIGENE HPV ASSAY IF RESULTS OF THIS PAP ARE ASCUS Specimen Adequacy Satisfactory for evaluation Presence of endocervical/transformation zone component General Categorization Negative for intraepithelial lesion or malignancy Interpretation NEGATIVE FOR INTRAEPITHELIAL LESION OR MALIGNANCY Reported: 12/21/2012 Electronically Signed Out By Jo Sunshine CT(ASCP) [facility] Unless otherwise specified, testing performed by [facility] [place] [address] [address] [place] [id number] GYNECOLOGIC CYTOLOGY REPORT Accession Number: [id number] Source of Specimen(s): A: SurePath Vaginal/ Cervical/ Endocervical Pap Smear - One Vial Clinical Diagnosis and History: Date of Last Menstrual Period: None Provided Specimen Adequacy Satisfactory for evaluation Presence of endocervical/transformation zone component General Categorization Negative for intraepithelial lesion or malignancy Interpretation NEGATIVE FOR INTRAEPITHELIAL LESION OR MALIGNANCY Reported: 12/17/2011 Electronically Signed Out By Fina Chavez SCT(ASCP)([facility]) Fisheries Manager: Lori Gonzalez CT(ASCP) JCM [facility] jclizzie QC Reviewed: Y Unless otherwise specified, testing performed by [facility] [address] [place] [address] [place] [address] 61 This sample is drawn by:JANESSA 62 Concerning GFR Guidelines for Americans: Normal function or mild renal disease, if clinically at risk: >/=60 mL/min Moderately decreased: 30-59 Severely decreased: 15-29 Renal failure: <15 63 Concerning GFR Guidelines: Normal function or mild renal disease, if clinically at risk: >/=60 mL/min Moderately decreased: 30-59 Severely decreased: 15-29 Renal failure: <15 Glomerular Filtration Rate (GFR) is estimated based on the MDRD equation, which assumes a steady state for creatinine as recommended by the National Kidney Disease Education Program in conjunction with the National Institutes of Health and the National Kidney Foundation. Clinical conditions in which it may be necessary to measure GFR by using clearance methods include extremes of age and body size, severe malnutrition or obesity, diseases of skeletal muscle, paraplegia or quadriplegia, vegetarian diet, rapidly changing kidney function, and calculation of the dose of potentially toxic drugs that are excreted by the kidneys. 64 This sample is drawn by:PAYTON. 65 Concerning GFR Guidelines: Normal function or mild renal disease, if clinically at risk: >/=60 mL/min Moderately decreased: 30-59 Severely decreased: 15-29 Renal failure: <15 Glomerular Filtration Rate (GFR) is estimated based on the MDRD equation, which assumes a steady state for creatinine as recommended by the National Kidney Disease Education Program in conjunction with the National Institutes of Health and the National Kidney Foundation. Clinical conditions in which it may be necessary to measure GFR by using clearance methods include extremes of age and body size, severe malnutrition or obesity, diseases of skeletal muscle, paraplegia or quadriplegia, vegetarian diet, rapidly changing kidney function, and calculation of the dose of potentially toxic drugs that are excreted by the kidneys. 66 Concerning GFR Guidelines for Americans: Normal function or mild renal disease, if clinically at risk: >/=60 mL/min Moderately decreased: 30-59 Severely decreased: 15-29 Renal failure: <15 67 Microbiology results SOURCE URINE RESULT No growth 68 [address]. [facility] [place] [address] GYNECOLOGIC CYTOLOGY REPORT Accession Number: [id number] Source of Specimen(s): A: SurePath Vaginal/ Cervical/ Endocervical Pap Smear - One Vial Clinical Diagnosis and History: Date of Last Menstrual Period: None Provided Other Clinical Conditions: REFLEX TO DIGENE HPV ASSAY IF RESULTS OF THIS PAP ARE ASCUS Specimen Adequacy Satisfactory for evaluation Presence of endocervical/transformation zone component General Categorization Negative for intraepithelial lesion or malignancy Interpretation NEGATIVE FOR INTRAEPITHELIAL LESION OR MALIGNANCY Reported: 11/27/2010 Electronically Signed Out By Lori MELCHOR(ASCP) [facility] dss Unless otherwise specified, testing performed by [facility] [place] [address] 69 This sample is drawn by:This sample is drawn by: 70 Concerning GFR Guidelines: Normal function or mild renal disease, if clinically at risk: >/=60 mL/min Moderately decreased: 30-59 Severely decreased: 15-29 Renal failure: <15 Glomerular Filtration Rate (GFR) is estimated based on the MDRD equation, which assumes a steady state for creatinine as recommended by the National Kidney Disease Education Program in conjunction with the National Institutes of Health and the National Kidney Foundation. Clinical conditions in which it may be necessary to measure GFR by using clearance methods include extremes of age and body size, severe malnutrition or obesity, diseases of skeletal muscle, paraplegia or quadriplegia, vegetarian diet, rapidly changing kidney function, and calculation of the dose of potentially toxic drugs that are excreted by the kidneys. 71 Concerning GFR Guidelines for Americans: Normal function or mild renal disease, if clinically at risk: >/=60 mL/min Moderately decreased: 30-59 Severely decreased: 15-29 Renal failure: <15 72 This sample is drawn by: marianne 73 [address] [facility] [place] [address] GYNECOLOGIC CYTOLOGY REPORT Accession Number: [id number] Source of Specimen(s): A: SurePath Pap Smear (NOS) - One Vial Clinical Diagnosis and History: Date of Last Menstrual Period: 3 weeks Other Clinical Conditions: Last Pap Smear: 1 yr normal Specimen Adequacy Satisfactory for evaluation Scant/no endocervical component General Categorization Negative for intraepithelial lesion or malignancy Interpretation NEGATIVE FOR INTRAEPITHELIAL LESION OR MALIGNANCY Reported: 10/30/2009 Electronically Signed Out By Nishi MELCHOR(ASCP) [facility] dol ICD9 Code: V72.31 Unless otherwise specified, testing performed by [facility] [address] [place] [address] 74 This sample is drawn by: MARIANNE 75 SPECIMEN DESCRIPTION VAGINAL/CERVICAL RESULT NEGATIVE FOR TRICHOMONAS VAGINALIS POSITIVE FOR GARDNERELLA VAGINALIS NEGATIVE FOR SHANTELLE SPECIES REPORT STATUS FINAL 09/19/2009 Unless otherwise specified, testing performed by [facility] [address] [place] [address] 76 SPECIMEN DESCRIPTION THROAT SWAB CULTURE RESULTS NORMAL [place] AFTER 1 DAY Unless otherwise specified, testing performed by [facility] [address] [place] [address] 77 This sample is drawn by: 78 SPECIMEN DESCRIPTION CUL DE SAC RESULT NEGATIVE FOR TRICHOMONAS VAGINALIS NEGATIVE FOR GARDNERELLA VAGINALIS NEGATIVE FOR SHANTELLE SPECIES REPORT STATUS FINAL 02/27/2009 Unless otherwise specified, testing performed by [facility] [address] [place] [address] 79 [facility]. [address] [place] [address] GYNECOLOGIC CYTOLOGY REPORT Accession Number: [id number] Source of Specimen(s): A: SurePath Pap Smear (NOS) - One Vial Clinical Diagnosis and History: Date of Last Menstrual Period: 1 wk ago Other Clinical Conditions: Last Pap Smear: 1 yr normal Specimen Adequacy Satisfactory for evaluation Presence of endocervical/transformation zone component General Categorization Negative for intraepithelial lesion or malignancy Interpretation NEGATIVE FOR INTRAEPITHELIAL LESION OR MALIGNANCY Reported: 10/22/2008 Electronically Signed Out By Lori MELCHOR(ASCP) [facility] PJulien tena ICD9 Code: V72.31 Unless otherwise specified, testing performed by [facility] [address] [address] 80 This sample is drawn by: MARIANNE 81 PER NCEP ATP III GUIDELINES: RESULTS LOWER THAN 40 MG/DL ARE SUGGESTIVE OF INCREASED RISK FOR CORONARY ARTERY DISEASE. RESULTS > OR=TO 60 MG/DL ARE CONSIDERED A NEGATIVE RISK FACTOR. 82 INTERPRETATION OF CHOL-HDL RATIO CHD RISK FEMALE MALE VERY HIGH >8.3 >14.3 HIGH 5.6 - 8.3 6.7 - 14.3 AVERAGE 3.7 - 5.6 4.0 - 6.7 BELOW AVERAGE 2.5 - 3.7 2.7 - 4.0 PROTECTED <2.5 <2.7 83 PER NCEP ATP III GUIDELINES: OPTIMAL: <100 NEAR OPTIMAL: 100 - 129 BORDERLINE HIGH: 130 - 159 HIGH: 160 - 189 VERY HIGH: >189 84 SPECIMEN DESCRIPTION ENDOCERVICAL RESULT NEGATIVE FOR TRICHOMONAS VAGINALIS POSITIVE FOR GARDNERELLA VAGINALIS NEGATIVE FOR SHANTELLE SPECIES REPORT STATUS FINAL 10/18/2008 Unless otherwise specified, testing performed by [facility] [address] [address] 85 Concerning GFR GUIDELINES: Normal Function or Mild Renal Disease, if clinically at risk: >/=60mL/min Moderately decreased: 30-59 Severely decreased: 15-29 Renal Failure: <15 Glomerular Filtration Rate (GFR) is estimated based on the MDRD equation, which assumes a steady state for creatinine as recommended by the National Kidney Disease Education Program in conjunction with the National Institutes of Health and the National Kidney Foundation. Clinical conditions in which it may be necessary to measure GFR by using clearance methods include extremes of age and body size, severe malnutrition or obesity, diseases of skeletal muscle, paraplegia or quadriplegia, vegetarian diet, rapidly changing kidney function, and calculation of the dose of potentially toxic drugs that are excreted by the kidneys. 86 Concerning GFR GUIDELINES: Normal Function or Mild Renal Disease, if clinically at risk: >/=60mL/min Moderately decreased: 30-59 Severely decreased: 15-29 Renal Failure: <15 87 SEE REFERENCE LAB REPORT 88 LIBRA 01/12 AJK 89 Prolactin Female Normal Values: Pre-menopausal: 2.1 - 47.6 ng/ml Post-menopausal: 0.0 - 41.4 ng/ml 90 . Less than 5: Negative for 6 - 25: Indeterminate for , and Suggest recollection in 72 hrs Greater than 25: Positive for . NORMAL : Gestational Age HCG range (mIU/mL) 2-3 Weeks 100 - 1,000 3-4 Weeks 500 - 6,000 1-2 Months 5,000 - 200,000 2-3 Months 10,000 - 100,000 2nd Trimester 3,000 - 50,000 3rd Trimester 1,000 - 50,000 . Please Note: This test methodology is limited to the early detection of . False results can occur due to, but not limited to, the presence of heterophilic antibodies, non-specific protein binding, altered forms of HCG, HCG-like substances, trophoblastic or non-trophoblastic neoplasms. . 91 Prolactin Female Normal Values: Pre-menopausal: 2.1 - 47.6 ng/ml Post-menopausal: 0.0 - 41.4 ng/ml 92 As of 09/14/03 TIM Screens are performed using the HYCOR TIM kit. 93 Folate result greater than 23.0 ng/ml 94 Positive Hep B Core Antibody IgM suggests an acute or recent Hepatitis B viral infection. . 95 POSITIVE Hep A Antibody IgM suggests an acute or recent Hepatitis A Viral infection. . NEGATIVE Hep A Antibody IgM and POSITIVE Hep A Antibody (IgG + IgM) indicates the presence of Hep A Antibody (IgG). This confirms previous exposure and immunity to the Hepatitis A Virus. . Procedures Date Code Description Status 11/15/2018 57095 Electrocardiogram Complete Completed 11/15/2018 34742 Destruction Benign Lesions Other Than Skin Tags Up To Completed 14 Lesions 09/07/2018 [id number] Mammogram Completed 06/20/2018 84913 I & D Abscess Simple Completed 09/24/2017 79820 Remove Impacted Cerumen Requiring Instrumentation Completed 03/26/2016 [id number] Mammogram Completed 05/31/2015 27278 Admin Of Inj (Therapeutic Phrophylactic Or Diagnostic Completed Subq Inj 05/31/2015 58488 Admin Of Inj (Therapeutic Phrophylactic Or Diagnostic Completed Subq Inj 05/31/2015 13963 Electrocardiogram Complete Completed 02/27/2015 [id number] Mammogram Completed 12/31/2009 91891 ECHO Transthoracis 2D W Spectral Doppler Completed 12/06/2009 21041 ECHO Transthoracis 2D W Spectral Doppler Completed 05/17/2009 24453 Admin Of Inj (Therapeutic Phrophylactic Or Diagnostic Completed Subq Inj 09/26/2004 72135 Doppler Color Flow Velocity Mapping Completed 09/26/2004 92994 Doppler Echocardiography Complete Completed 09/26/2004 33537 ECHO Complete W/O Spectral Or Color Doppler Completed 05/02/2002 80349 Electrocardiogram Complete Completed Encounters Type Date Location Provider Dx Diagnosis Office Visit 09/06/2018 Netta Avery J06.9 Acute upper 2:00p MD Lizzie respiratory infection, unspecified H65.02 Acute serous otitis media, LEFT ear Z68.27 Body mass index (BMI) 27.0-27.9, adult Office Visit 06/20/2018 11:45a Netta Avery L03.113 Cellulitis of RIGHT MD Lizzie upper limb L73.2 Hidradenitis suppurativa Z68.27 Body mass index (BMI) 27.0-27.9, adult Office Visit 06/08/2018 11:00a Netta Avery Z01.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 (general) (routine) w abnormal findings E78.2 Mixed hyperlipidemia E03.9 Hypothyroidism, unspecified K59.00 Constipation, unspecified R73.01 Impaired fasting glucose E55.9 Vitamin D deficiency, unspecified K21.9 Gastro-esophageal reflux disease without esophagitis Z12.31 Encntr screen mammogram for malignant neoplasm of breast M25.572 Pain in LEFT ankle and joints of LEFT foot R10.2 Pelvic and perineal pain Z23 Encounter for immunization Z68.27 Body mass index (BMI) 27.0-27.9, adult Office Visit 03/30/2018 11:40a Sanjay Craig PA M25.572 Pain in LEFT ankle and joints of LEFT foot L02.412 Cutaneous abscess of LEFT axilla Office Visit 03/28/2018 3:00p Sanjay Craig PA M25.572 Pain in LEFT ankle and joints of LEFT foot L02.412 Cutaneous abscess of LEFT axilla Office Visit 03/03/2018 11:40a Linda Mercer, L02.412 Cutaneous abscess of RN [employer] LEFT axilla N64.4 Mastodynia Z68.26 Body mass index (BMI) 26.0-26.9, adult Office Visit 09/24/2017 10:00a Netta Avery E03.9 HypothyroidismLizzie MD unspecified E55.9 Vitamin D deficiency, unspecified E78.2 Mixed hyperlipidemia R73.01 Impaired fasting glucose K59.00 Constipation, unspecified K21.9 Gastro-esophageal reflux disease without esophagitis H61.21 Impacted cerumen, RIGHT ear Office Visit 04/02/2017 1:00p Linda Mercer, R19.7 Diarrhea, unspecified RN [employer] K59.00 Constipation, unspecified Office Visit 03/23/2017 2:00p Netta Avery Z01.419 Encntr for aviation maintenance technician exam MD Lizzie (general) (routine) w/o abn findings E03.9 Hypothyroidism, unspecified E55.9 Vitamin D deficiency, unspecified E78.2 Mixed hyperlipidemia N95.1 Menopausal and female climacteric states R73.01 Impaired fasting glucose Z00.00 Encntr for general adult medical exam w/o abnormal findings Office Visit 11/13/2016 2:00p Netta Avery MD R07.89 Other chest pain N76.2 Acute vulvitis N94.2 Vaginismus Office Visit 08/17/2016 11:45a Netta Avery Z12.31 Encntr ashwin Pham MD mammogram for malignant neoplasm of breast E03.9 Hypothyroidism, unspecified E55.9 Vitamin D deficiency, unspecified M25.521 Pain in RIGHT elbow Office Visit 04/01/2016 2:00p Linda Mercer, RN R07.89 Other chest pain [employer] N64.9 Disorder of breast, unspecified Office Visit 02/03/2016 2:30p Netta Avery Z00.01 Encounter for MD Lizzie general adult medical exam w abnormal findings E03.9 Hypothyroidism, unspecified E55.9 Vitamin D deficiency, unspecified Z12.31 Encntr screen mammogram for malignant neoplasm of breast Office Visit 08/20/2015 3:30p Netta Avery E55.9 Vitamin D deficiency, MD Lizzie unspecified E03.9 Hypothyroidism, unspecified L72.3 Sebaceous cyst K64.9 Unspecified hemorrhoids Office Visit 05/31/2015 11:45a Netta Avery Z23 Encounter for MD Lizzie immunization Z01.810 Encounter for preprocedural cardiovascular examination N83.29 Other ovarian cysts Office Visit 04/10/2015 2:20p Magy Barker MD 789.9 Abdomen & Pelvis Symptoms Other 268.9 Vitamin D Deficiency Unspec 280.9 Iron Deficiency Anemia Unspec 794.8 Liver Study Abnormal 616.10 Vaginitis & Vulvovaginitis Unspec 381.4 Otitis Media Acute Or Chronic Nonsuppurative V17.49 Family HX Of Other Cardiovascular Diseases V76.10 Screening For Malignant Neoplasm Breast 782.1 Rash & Other Nonspec Skin Eruption Office Visit 01/28/2015 3:00p Netta Avery 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 Examination 244.9 Hypothyroidism Other Unspec 268.9 Vitamin D Deficiency Unspec 389.9 Hearing Loss Unspec 530.11 Esophagitis Reflux V76.10 Screening For Malignant Neoplasm Breast Office Visit 10/16/2014 3:15p Netta Avery 487.8 Influenza W/ Rehana Pham MD Manifestations Office Visit 06/26/2014 8:30a Netta Avery 244.9 Hypothyroidism Rehana Pham MD Unspec 268.9 Vitamin D Deficiency Unspec 280.9 Iron Deficiency Anemia Unspec 530.11 Esophagitis Reflux 308.3 Stress Reaction Other Acute 794.8 Liver Study Abnormal 616.10 Vaginitis & Vulvovaginitis Unspec Office Visit 05/29/2014 3:30p Netta Avery MD 389.9 Hearing Loss Unspec 381.4 Otitis Media Acute Or Chronic Nonsuppurative Office Visit 01/01/2014 1:15p Netta Avery 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 Examination 268.9 Vitamin D Deficiency Unspec 244.9 Hypothyroidism Other Unspec V17.49 Family HX Of Other Cardiovascular Diseases V76.10 Screening For Malignant Neoplasm Breast 272.2 Hyperlipidemia Mixed Office Visit 10/27/2013 1:00p Netta Avery 381.4 Otitis Media Acute Or MD Lizzie Chronic Nonsuppurative 461.0 Sinusitis Acute Maxillary 244.9 Hypothyroidism Other Unspec 616.10 Vaginitis & Vulvovaginitis Unspec Office Visit 12/21/2012 10:00a Magy Barker MD 782.1 Rash & Other Nonspec Skin Eruption Office Visit 12/16/2012 2:45p Netta Avery 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 Examination 244.9 Hypothyroidism Other Unspec 706.2 Sebaceous Cyst 268.9 Vitamin D Deficiency Unspec V76.2 Screening Malignant Neoplasm Cervix Office Visit 11/14/2012 9:45a Netta Avery 682.8 Cellulitis & Abscess MD Lizzie Other Spec Sites 244.9 Hypothyroidism Other Unspec 268.9 Vitamin D Deficiency Unspec Office Visit 10/25/2012 10:15a Netta Avery 682.8 Cellulitis & Abscess MD Lizzie Other Spec Sites Office Visit 06/17/2012 2:45p Netta Avery 244.9 Hypothyroidism Rehana Pham MD Unspec 268.9 Vitamin D Deficiency Unspec Office Visit 12/15/2011 11:00a Netta Avery 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 Examination 244.9 Hypothyroidism Other Unspec 268.9 Vitamin D Deficiency Unspec 786.50 Pain Chest Unspec Office Visit 10/28/2011 11:00a Linda Mercer C, 079.99 Viral Infection RN [employer] Unspec 789.05 Pain Abdominal Periumbilic Office Visit 09/11/2011 1:45p Netta Avery 110.8 Dermatophytosis Rehana Pham MD Spec Sites Office Visit 07/21/2011 1:30p Netta Avery 244.9 Hypothyroidism Rehana Pham MD Unspec 268.9 Vitamin D Deficiency Unspec 794.8 Liver Study Abnormal 280.9 Iron Deficiency Anemia Unspec 788.99 Other Symptoms Involving Urinary System 616.10 Vaginitis & Vulvovaginitis Unspec Office Visit 03/25/2011 10:45a Netta Avery 786.50 Pain Chest Unspec MD Lizzie Office Visit 11/25/2010 1:15p Netta Avery 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 Unspec Office Visit 10/28/2009 1:15p Linda Mercer, v74.1 Screening Examination RN MS [facility] Pulmonary Tuberculosis V72.31 Routine Postal Service Mail Processor Examination 564.00 Constipation Unspecified V74.1 Screening Examination Pulmonary Tuberculosis V58.69 Medications Geotechnician (Current) Use Encounter 272.2 Hyperlipidemia Mixed Office Visit 09/19/2009 10:15a Linda Mercer, 465.9 URI Upper Respiratory RN MS [facility] Infections Acute Unspec Sites 616.10 Vaginitis & Vulvovaginitis Unspec 569.42 Pain Anal Or Rectal Office Visit 06/25/2009 2:00p Linda Mercer, 462 Pharyngitis Acute RN [employer] Office Visit 05/17/2009 2:45p Netta Avery 477.0 Rhinitis Allergic Due MD Lizzie To Pollen 244.9 Hypothyroidism Other Unspec 268.9 Vitamin D Deficiency Unspec 281.9 Anemia Deficiency Unspec V04.81 Need For Prophylactic Vaccination & Inoculation/Influenza Office Visit 02/27/2009 1:00p Linda Mercer 789.07 Pain Abdominal C, RN [employer] Generalized Office Visit 10/18/2008 10:45a Linda Mercer 244.9 Hypothyroidism Other C, RN [employer] Unspec V72.31 Routine Postal Service Mail Processor Examination 281.9 Anemia Deficiency Unspec 268.9 Vitamin D Deficiency Unspec 616.10 Vaginitis & Vulvovaginitis Unspec Office Visit 03/26/2008 3:00p Netta Avery MD 705.81 Dyshidrosis 244.9 Hypothyroidism Other Unspec 281.9 Anemia Deficiency Unspec Office Visit 09/29/2007 1:15p Linda Mercer, V72.31 Routine Postal Service Mail Processor RN [employer] Examination 244.9 Hypothyroidism Other Unspec 564.00 Constipation Unspecified V58.69 Medications Geotechnician (Current) Use Encounter V70.0 Exam (Adult) General Medical Routine AT Health Care Facility Office Visit 12/30/2006 1:15p Linda Mercer, V72.84 Examination RN [employer] Preoperative Unspec V70.0 Exam (Adult) General Medical Routine AT [facility] 244.9 Hypothyroidism Other Unspec Office Visit 09/28/2006 2:30p Linda Mercer, V72.31 Routine Postal Service Mail Processor RN [employer] Examination V70.0 Exam (Adult) General Medical Routine AT [facility] 244.9 Hypothyroidism Other Unspec 785.2 Murmur Cardiac Undiagnosed V74.1 Screening Examination Pulmonary Tuberculosis V76.2 Screening Malignant Neoplasm Cervix Office Visit 04/16/2006 2:30p Netta Avery 244.9 Hypothyroidism Other MD Lizzie Unspec 280.9 Iron Deficiency Anemia Unspec 616.10 Vaginitis & Vulvovaginitis Unspec Office Visit 01/12/2006 3:15p Netta Avery 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 Lizzie 244.9 Hypothyroidism Other Unspec 280.9 Iron Deficiency Anemia Unspec Office Visit 10/20/2005 3:00p Netta Avery 595.0 Cystitis Acute MD Lizzie Office Visit 09/14/2005 3:45p Netta Avery 795.00 Abnormal Glandular MD Lizzie Pap Smear 280.9 Iron Deficiency Anemia Unspec 244.9 Hypothyroidism Other Unspec 564.00 Constipation Unspecified Office Visit 06/15/2005 3:00p Netta Avery MD 719.47 Pain Joint Ankle & Foot 244.9 Hypothyroidism Other Unspec V17.3 History Family Ischemic Heart Disease V72.31 Routine Postal Service Mail Processor Examination V70.0 Exam (Adult) General Medical Routine AT Health Care Facility Office Visit 03/13/2005 11:30a Netta Avery 244.9 Hypothyroidism Other MD Lizzie Unspec 280.9 Iron Deficiency Anemia Unspec 252.00 Hyperparathyroidism NOS Office Visit 12/25/2004 8:15a Linda Mercer RN 814.00 FX Carpal Bone [employer] Closed Unspec V72.84 Examination Preoperative Unspec Office Visit 10/24/2004 1:45p Netta Avery 244.9 Hypothyroidism Rehana Pham MD Unspec 285.9 Anemia Unspec 611.0 Inflammatory Disease Breast Office Visit 09/01/2004 6:15p Netta Avery 611.6 Galactorrhea MD Lizzie Childbirth Not Assoc W/ 511.0 Pleurisy W/O Mention Of Effusion Or Current Tuberculosis V74.1 Screening Examination Pulmonary Tuberculosis V04.81 Need For Prophylactic Vaccination & Inoculation/Influenza Office Visit 07/28/2004 4:10p Netta Avery 244.9 Hypothyroidism Rehana Pham MD Unspec 676.60 Galactorrhea Assoc W/ Episode Of Care Unspec Or N/A Office Visit 04/28/2004 2:15p Netta Avery V72.3 Examination MD Lizzie Gynecological Office Visit 03/05/2004 11:00a Linda Mercer, 733.6 Tietzes Disease RN [place] [employer] Office Visit 02/19/2004 1:20p Netta Avery 244.9 Hypothyroidism Rehana Pham MD Unspec 280.9 Iron Deficiency Anemia Unspec Office Visit 11/22/2003 9:20a Netta Avery 244.9 Hypothyroidism Rehana Pham MD Unspec 281.0 Pernicious Anemia 794.8 Liver Study Abnormal Office Visit 10/26/2003 3:30p Netta Avery MD 285.9 Anemia Unspec 244.9 Hypothyroidism Other Unspec Office Visit 10/12/2003 11:40a Netta Avery 959.5 Injury Finger Rehana & MD Lizzie Unspec Office Visit 09/27/2003 11:10a Netta Avery 280.9 Iron Deficiency MD Lizzie Anemia Unspec V70.0 Exam (Adult) General Medical Routine AT Health Care Facility V07.2 Prophylactic Immunotherapy Office Visit 02/19/2003 5:30p Netta Avery 616.10 Vaginitis & MD Lizzie Vulvovaginitis Unspec 795.00 Abnormal Glandular Pap Smear Office Visit 01/29/2003 10:40a Shannon Aidan, Linda C, RN MS 462 Pharyngitis Acute [employer] 465.9 URI Upper Respiratory Infections Acute Unspec Sites Office Visit 11/06/2002 6:40p Netta Avery V72.3 Examination MD Lizzie Gynecological Office Visit 08/15/2002 11:40a Netta Avery 285.9 Anemia Unspec MD Lizzie 008.8 Enteritis Due To Other Organism Not Elsewhere Class 599.0 UTI Urinary Tract Infection Site Not Spec Office Visit 05/02/2002 2:30p Netta Avery MD 786.51 Pain Precordial 785.2 Murmur Cardiac Undiagnosed Office Visit 09/12/2001 5:40p Netta Avery MD Office Visit 08/29/2001 2:30p Gary Jim MD Office Visit 07/27/2001 6:00p Gary Jim MD Office Visit 07/18/2001 5:40p Netta Avery MD Office Visit 03/18/2001 1:50p Gary Jim MD Office Visit 09/07/2000 2:30p Tania Woods RN A.N.P. Office Visit 05/10/2000 3:00p Tania Woods RN A.N.PMariam 462 Pharyngitis Acute Plan of Treatment Future Appointment(s):05/26/2019 10:00 am - Netta Ledesma MD at [id number] - Netat Ledesma MDZ01.818 Encounter for other preprocedural urkjitfzbjjW90.9 Vitamin D deficiency, gwsxhyktcmbG53.2 Mixed ipzctlbjshkiqtF74.2 Hidradenitis itwxhczvbcmZ93.9 Hypothyroidism, rtlxnqgfjwlR27.01 Impaired fasting wgtspaoJ03.9 Gastro-esophageal reflux disease without hzhkgbefubiB88.5 Other benign neoplasm of skin of pmpyhP15.26 Body mass index (BMI) 26.0-26.9, adult
--- OUTSIDE RECORDS SUMMARY | 2018-11-29 05:55 | XMS REPORT | Continuity of Care Document ---
:1975 Author Organization [facility] Care Team Providers Name Role Phone ENEDINA GARIBAY Primary Care Physician Allergies and Intolerances No Known Allergies Medications RxNorm Medication Dose Route Instructions Start End Status Date Date 19831118 Acetaminophen 650 650 mg oral orally every 4 Active MG Oral Tablet hours as needed. 518031 Bacitracin 0.4 1 applic topical topically 2 Active UNT/MG / Neomycin times per day 0.0035 MG/MG / as needed. Polymyxin B 5 UNT/MG Topical Ointment 7804866 Calcium Citrate 1 tab oral orally every Active 1500 MG / day at bedtime Cholecalciferol 200 UNT Oral Tablet 2418 Cholecalciferol 3000 unit oral orally every Active day at bedtime Colace Oral 100 mg oral orally 2 times Active per day Fish Oil 1000 mg oral orally every Active day at bedtime ( administer with food (meal or snack);) 5226536 Fluticasone 2 spray Intranasal intranasally Active propionate 0.05 every morning MG/ACTUAT Metered Dose Nasal [place] 503 Guaifenesin 200 mg oral orally 3 times Active per day as needed. Ibuprofen 400 MG 400 mg oral orally every 6 Active Oral Tablet hours as needed. Levothyroxine Oral 75 mcg oral orally every Active morning 79848 Loratadine 10 mg oral orally every Active day as needed. Multivitamins 1 tab-cap oral orally every Active W-Minerals morning 7646 Omeprazole 20 mg oral orally every Active morning ( swallow whole; do not crush/chew/cut OR may open and sprinkle contents over spoonful of applesauce; swallow all immediately/do not chew pellets;) 464910 POLYETHYLENE GLYCOL 17 g oral orally every Active 3350 16946 MG day as needed. Powder for Oral ( mix into 4-8 Solution oz. of any hot/cold/room temp. beverage; use immediately;) 386857 Sodium Fluoride 1 applic Dental to dental area Active 0.011 MG/MG 2 times per day Toothpaste Problems Code Code System Problem Name Start Date End Date Status 21350384 SNOMED-CT Disorder of thyroid gland U Active MITRAL VALVE PROLAPSE U Active ADHD U Active MILD RETARDATION U Active VERTILIGO U Active Anxiety U Active 40330257 SNOMED-CT Vitamin D deficiency U Active 2753680 SNOMED-CT Aortic valve disorder U Active 96846522 SNOMED-CT Iron deficiency anemia U Active 764661595 SNOMED-CT Mitral valve prolapse U Active 74977195 SNOMED-CT Hypothyroidism U Active 1800461 SNOMED-CT Gastritis U Active Procedures Code Code System Procedure Date TUBAL 2011 Results No data in the system Social History Code Code System Social History Observation Description Dates Observed 122159099 SNOMED CT Current Smoking Status Never smoker UNK AdministrativeGender Sex Assigned At Unknown Vital Signs No data in the system Goals Section No data in the system Health Concerns No data in the systemEncounter Diagnosis Date Code Code System Diagnosis Status E11.51 ICD10 TYPE 2 DM DIAB P ANGIOPATH NO GNGRN Active Advance Directives PT STATES NO ADVANCE DIRECTIVES Directive Type Effective Date Manager Business Systems Notes Supporting Document Name Address Phone No Directive 06/13/2015 Not Specified Not Specified Not Specified pt has no No Type specified 11:15:00 AM advance directives. [employer] and Connie Lawrence are her legal guardians [phone] *RHIO - CONSENT IS YES Directive Type Effective Date Manager Business Systems Notes Supporting Document Name Address Phone No Directive Type 12/10/2011 Not Specified Not Specified Not Specified None No specified 10:11:46 AM Family History Patient has no knowledge of family history Functional Status No data in the system Immunizations Vaccine Code Code System Vaccine Name Date Status UTD Completed FLU VACCINE 2014 Completed Medical Equipment No data in the system Mental Status No data in the system Assessment and Plan Assessments No data in the systemPlan Of Treatment No data in the systemPending Tests No data in the system Hospital Discharge Instructions No data in the system Reason for Visit Reason for Visit xray
--- OUTSIDE RECORDS SUMMARY | 2018-11-29 05:56 | XMS REPORT | Continuity of Care Document ---
:1975 External Reference #:[id number] Author Name Netta Ledesma MD Address [address] [place] [address] Care Team Providers Name Role Phone Netta Ledesma MD Care Team Information Site Identification Specialist Unavailable Payers Date Identification Numbers Payment Provider Subscriber Effective: 2002 Policy Number: [id number] Medicare Lacie Shea Group Name: [facility] [address] PayID: [id number] [place] [address] Effective: 2018 Policy Number: [id number] [facility] Ajit Shea Group Number: [id number] [address] Group Name: [place] [address] PayID: [id number] Policy Number: [id number] Medicaid ### >11 Lacie Shea Group Name: [id number] [address] PayID: [id number] [place] [address] Advance Directives Description No Information Available Problems Date Description Provider Status Onset: 09/30/2006 Hypothyroidism Linda Bermudez RN MS LEAD MACHINIST Active Onset: 12/21/2012 Iron deficiency anemia Magy [...] MD Lizzie as needed constipat ion Super Berlin-3 12/10 Active Capsules -3 100caps one tab Baltazar daily Nettaher Lizzie MD Diet 09/27 Active low Baltazar cholester Netta Pham MD V-8 Juice 09/06 Active no Baltazar contraind Netta ication MD Lizzie to consume low sodium 1 can/d- Trovix may encourage this Prevident 10/22 Active Gel 1.1% 56gm may apply to tooth Linda Sierra RN MS twice a LEAD MACHINIST day Vitamin D 08/11 Active Tablets 1000Unit 90tabs 1 by E55.9 Baltazar mouth Netta every day MD Lizzie 12/14-07/15 3 by mouth every day 07/16-12/13 so this means currently 3 qd) Biofreeze 04/01 Active Aerosol 10% 1units Franklin RT Ribs bid Linda Sierra RN MS LEAD MACHINIST Omeprazole 03/16 Active Capsules 20mg 30caps [address] mouth Netta every day MD Lizzie A & D Zinc Oxide 08/21 Active Cream 113gm apply bid Baltazar to Netta affected MD Lizzie area prn Ranitidine HCL 12/31 Active Tablets 150mg 60tabs 1 by Baltazar mouth Netta twice a MD Lizzie day Fluticasone 05/29 Active Suspension 50mcg/Act 16units 2 sprays H65.93 Baltazar, in each Netta nostril MD Lizzie daily Triple 04/10 Active Ointment 1% 1units Apply bid Baltazar, Antibiotic Plus /2010 X 3 D prn Netta Cuts/Scra MD [...] - and 1 tab MD Lizzie 10/21 daily till gone Cephalexin 06/20 Hx Tablets 500mg [...] 2000Unit 90tabs one daily Aidan Linda - NOMI Sierra MS 04/02 LEAD MACHINIST Total Fiber 04/02 Hx Powder 952gm 2 TSP Daily X 7 Linda - Days If NOMI Sierra MS 03/22 Needed LEAD MACHINIST After One Week. May Increase To 2 TSP bid Tamiflu 10/16 Hx Capsules 75mg 10caps 1 by 487.8 Baltazar mouth Netta - twice a MD Lizzie 12/07 day x days Hydroxyzine HCL 06/26 Hx Tablets 10mg 40tabs discontin 308.3 Macarory ue Netta Pham MD 06/18 Azithromycin 05/29 Hx Tablets 250mg 1Pack 2 tabs 381.4 Macarory day one Netta - and 1 tab MD Lizzie 06/26 daily till gone Amoxicillin 10/27 Hx Tablets 875mg 20tabs 1 po bid 381.4 Macadam Netta Pham MD 01/01 A+D First Aid 10/27 Hx Ointment QS apply 616.10 Macarory external Netta - vaginal MD Lizzie 08/20 area bid /2015 x 10 d Amoxicillin/Pota 10/25 Hx Tablets 875-125mg 14tabs 1 po bid 682.8 Baltazar, Netta Clavulanate Myra Pham MD 11/14 Protein 07/22 Hx QS body Macarory, fortress Netta - super MD Lizzie 12/16 whey 1/2-1 scoop qd Vitamin D3 07/01 Hx Capsules [id number] 8caps 1 po q wk Baltazar x 8 wks Netta Pham MD 12/19 No 05/[address] [facility]udez, [facility] - katt Sierra, RN MS Dental Surgery 06/17 reviewed LEAD MACHINIST [facility] and this should be a fine plan.. Diet 12/14 Hx low fat V72.31 Baltazar Netta Pham MD 12/21 Oxistat 10/01 Hx Cream 1% 1Lgtube apply tid Baltazar 3 wks Netta Pham MD 12/21 Glucosamine/Jarrod 09/28 Hx Tablets 750-600mg 180tabs 2 po qd Baltazar, Netta Pham MD 08/20 Miconazole 09/11 Hx Cream 2% 45gm Apply bid 110.8 Baltazar, Until Netta - Rash Gone MD Lizzie 12/21 D/C 07/17 Hx Dermotic Baltazar Netta Pham MD 07/17 Boost 04/07 Hx D/c qd Baltazar dosing Netta lOson MD 04/08 change to prn Citracal + D3 03/25 Hx Tablets 315-250mg- 60tabs 1 po bid Baltazar, Unit Netta Pham MD 04/02 Dermotic 03/25 Hx Oil 0.01% QSmeds 2 drops Baltazar each ear Netta - bid prn MD Lizzie 07/17 Act Mint 03/25 Hx Rinse Baltazar, Solution Mouth bid Netta Pham MD 12/21 Prilosec 03/12 Hx Capsules 20mg 90caps [address] Linda Sierra RN MS 12/21 LEAD MACHINIST Boost 02/24 Hx Liquid 30units 1x/D prn Aidan morris Sierra RN MS 06/17 starting 06/17/2012 D/C Colace 10/20 Hx Baltazar Netta Pham MD 11/25 Ranitidine HCL 06/19 Hx Tab 150mg/10ML One Tab By Mouth Linda - Q 12 HRS Mariela RN MS 03/12 Pseudoephedrine 06/19 Hx Tablets 60mg 30tabs T Tab bid Aidan, HCL as needed Linda - for nasal C, RN MS 07/17 or ear congestio n Saline Nasal 06/19 Hx Solution 0.65% 1units 2 sprays Aidan, Franklin each Linda - nostril Mariela, RN MS 07/17 tid as needed for [...] day Please 10/15 Hx zofram Aidan, Discontinue /2010 medicatio Linda Renteria n qid as NOMI Sierra MS 07/22 of today Zofran 10/07 Hx Tablets 4mg 12tabs 1-2 tid prn n/v Netta Pham MD 10/08 D/C Flagyl 09/25 Hx Tablets 500mg 14tabs 1 bidx7 2009 Linda Sierra RN MS 07/22 Clarinex 05/17 Hx Tablets 5mg 90tabs 1 po qd 477.0 prn Netta Pham MD 12/30 Omeprazole 02/27 Hx Capsules 20mg 90caps [address] Linda Sierra RN MS 03/25 Vitamin D 10/29 Hx Capsules 400Unit 60caps 1 po bid Netta Pham MD 12/09 PPD 10/24 Hx Screening please Test place and Linda - read with NOMI Sierra MS 11/03 in 48-72 hours. fax results to [phone] Flagyl 10/23 Hx Tablets 500mg 14tabs 1 bid x 7 616.10 2008 Linda Sierra RN MS 02/27 Super Berlin-3 06/13 Hx Capsules 1000mg Of 100caps one tab Macarory Berlin 3 daily Netta Pham MD 12/10 Diflucan 03/29 Hx Tablets 150mg 1tabs one tab Baltazar, po times Netta - one day MD Lizzie 10/18 Elocon 03/26 Hx Cream 0.1% 45gm Apply bid 705.81 Macarory prn Netta - ItchyLizzie MD 07/17 Scaly Areas Miralax (Single 09/29 Hx Packet [id number] 50units dissolve 564.00 Macarory, Dose Packets) 1pkt in 8 Netta - oz of MD Lizzie 12/21 water and /2012 drink qd prn daily if no BM Glucosamine/Jarrod 03/21 Hx Tablets 750-600 180tabs 2 po qd Macarory, droitin Triple /2006 Netta Pham MD 09/28 Blood Draw 02/07 Hx cbc, bmp, Baltazar TSH, iron Netta Pham MD 10/04 dx: anemia, hypothyro id Crutches 10/25 Hx dx: foot Baltazar pain Netta Pham MD 10/18 attn: linda ok to use at dayhab Docusate Sodium 09/28 [...] Hx Tablets 325mg 15tabs 1 tab qod Baltazar, Netta Pham MD 03/10 Cipro 10/20 Hx [...] 1Tube to Baltazar affected Netta - area bid MD Lizzie 03/25 Docusate 03/13 Hx 200mg 90units 1 po qd Baltazar, Netta Pham MD 09/28 Synthroid 10/24 Hx Tablets 75mcg 30tabs 1 po qd Aidan, Linda Sierra RN MS 04/05 LEAD MACHINIST Vitamins 10/24 Hx Caplets 30caps 1 po qd Baltazar, Netta Pham MD 03/11 Guaifenesin 03/11 Hx Tablets 200mg 60tabs 1 PO tid Baltazar prn Cough Netta Pham MD 12/21 Pseudoephedrine 10/24 Hx Tablets 30mg 30tabs 2 Q 6H as Baltazar, Needed Netta Renteria For Cold MD Lizzie 06/19 Clonidine 10/24 Hx Tablets 0.1mg 15tabs 1/2 tab Baltazar at hs Netta Pham MD 10/18 Ferrous Sulfate 09/10 Hx Tablets 325mg 60tabs 1 po bid Baltazar, Netta Pham MD 01/15 Synthroid 09/10 Hx Tablets 75mcg 30tabs 1 po qd Baltazar, Netta Pham MD 10/31 Docusate Sodium 09/10 Hx Capsules 100mg 100caps 1 po bid Baltazar, Netta Pham MD 03/13 Bextra 09/10 Hx Tablets 10mg 30tabs 1 po qd Baltazar with food Netta Pham MD 01/12 Medications Administered in Office Medication Date Status Form Strength Qnty SIG Indications Ordering Provider PPD Administered Injection Aidan, 010 Linda Sierra RN MS LEAD MACHINIST PPD Administered Injection Macadam, 008 Netta Pham MD PPD Administered Injection Nurses 008 Schedule Shannon PPD Administered Injection Macadam, 007 Netta Pham MD PPD Administered Injection Aidan, 007 Linda Sierra RN MS LEAD MACHINIST PPD Administered Injection Macadam, 005 Netta Pham MD Torodol Administered Injection Macadam, Injection 15 002 Netta Pham MD PPD Administered Injection Macadam, 002 Netta Pham MD PPD Administered Injection Cedeño, 001 NOMI Marin A.N.P. Immunizations CPT Code Status Date Vaccine Lot # [id number] Given 06/08/2018 Influenza Vac, Quadrivalent, Split, [id number] 0.5mL Dosage, Im Use 19074 Given 06/10/2016 Influenza Vac, Quadrivalent, Split, 0.5mL Dosage, Im Use 62158 Given 05/31/2015 Tdap (Adacel) Ages 7 And Above Only [id number] 35608 Given 05/31/2015 Influenza Vac, Quadrivalent, Split, [id number] 0.5mL Dosage, Im Use 67645 Given 05/17/2009 Afluria Or Fluvirin Flu Vac [id number] Intramuscular 66855 Given 06/17/2005 Afluria Or Fluvirin Flu Vac [id number] exp 02/12/06 Intramuscular 45605 Given 09/01/2004 Afluria Or Fluvirin Flu Vac Intramuscular 41479 Given 10/12/2003 Tetanus And Diptheria Toxoids For Adult Use-preservative free 90863 Given 08/25/1999 Hepatitis B Vaccine Adult Dosage 77009 Given 07/21/1999 Hepatitis B Vaccine Adult Dosage 99135 Given 07/21/1999 MMR Virus Immunization Vital Signs [...] Date Facility Test Result H/L Range Note Laboratory test finding 11/15/2018 [facility] TSH <pending> Vit D 25Oh <pending> Hemoglobin A1c <pending> Laboratory test finding 06/08/2018 [facility] Pap SEE NOTE 1 CBC with Auto Diff-fcmg 06/08/2018 [facility] WBC 8.0 K/uL 4.1-11.0 2 RBC 4.27 M/uL 4.00-5.40 Hemoglobin 13.6 gm/dL [...] 06/08/2018 [facility] Sodium 142 mmol/L 135- 146 3 Potassium 4.8 mmol/L 3.5-5.2 Chloride# 102 mmol/L 97-110 4 Carbon Dioxide 30 mmol/L 24-34 Glucose 85 mg/dL 70-105 BUN 11 mg/dL 6-26 Creatinine 0.8 mg/dL 0.5-1.4 Calcium 9.9 mg/dL 8.5-10.2 Total Protein 7.1 g/dL 6.0-8.0 Albumin 4.5 g/dL 3.6-4.9 Globulin 2.6 g/dL 2.0-3.5 A/G Ratio 1.7 Ratio 1.0-2.2 Total Bilirubin 0.5 mg/dL 0.1-1.3 Alkaline Phosphatase 74 U/L 24-140 Alt 22 U/L 3-42 Ast 19 U/L 8-42 Sheryl Egfr >60 >60 5 Non Sheryl Egfr >60 >60 6 Anion Gap 10 mmol/L 5-15 7 [facility] 4.6 % 4.1-5.9 Estimated Average Glucose Calc 85 mg/dL 71-140 Lipid 06/08/2018 [facility] Cholesterol 231 mg/dL High 50-199 Triglycerides 220 mg/dL High 30-200 HDL 32 mg/dL Low 35-85 8 Chol/ HDL Ratio 7.3 ratio High 3.7-5.6 VLDL 44 mg/dL High 2-29 LDL (Calc) 156 mg/dL High 20-99 9 Laboratory test finding 06/08/2018 [facility] TSH 1.64 uIU/mL 0.35-4.94 Vitamin D 25 Hydroxy 39 ng/mL 30-100 10 Wound Culture-RL 03/03/2018 [facility] Wound Culture SEE NOTE 11 Comprehensive Met Panel-FCMG 09/24/2017 [facility] Sodium 142 mmol/L 135- 146 12 Potassium 4.7 mmol/L 3.5-5.2 Chloride# 103 mmol/L 97-110 13 Carbon Dioxide 30 mmol/L 24-34 Glucose 80 mg/dL 70-105 BUN 14 mg/dL 6-26 Creatinine 0.8 mg/dL 0.5-1.4 Calcium 9.8 mg/dL 8.5-10.2 Total Protein 7.0 g/dL 6.0-8.0 Albumin 4.6 g/dL 3.6-4.9 Globulin 2.4 g/dL 2.0-3.5 A/G Ratio 1.9 Ratio 1.0-2.2 Total Bilirubin 0.5 mg/dL 0.1-1.3 Alkaline Phosphatase 62 U/L 24-140 Alt 24 U/L 3-42 Ast 21 U/L 8-42 Sheryl Egfr >60 >60 14 Non Sheryl Egfr >60 >60 15 Anion Gap 9 mmol/L 5-15 16 Lipid 09/24/2017 [facility] Cholesterol 224 mg/dL High 50-199 Triglycerides 89 mg/dL 30-200 HDL 34 mg/dL Low 35-85 17 Chol/ HDL Ratio 6.6 ratio High 3.7-5.6 VLDL 18 mg/dL 2-29 LDL (Calc) 172 mg/dL High 20-99 18 Laboratory test finding 09/24/2017 [facility] TSH 0.88 uIU/mL 0.35-4.94 Vitamin D 25 Hydroxy 46 ng/mL 30-100 19 Laboratory test finding 03/23/2017 [facility] Pap SEE NOTE 20 CBC With Auto Diff 03/23/2017 [facility] WBC [...] K/uL 0.0-0.5 Abs Basophils 0.1 K/uL 0.0-0.3 Hemoglobin A1c 03/23/2017 [facility] Hemoglobin A1c 4.8 % 4.1-5.9 Estimated Average Glucose Calc 91 71-140 Laboratory test finding 03/23/2017 [facility] Vit D,25 Hydroxy 42 ng/mL 31- 100 FSH 3.6 mIU/ml 21 LH 2.1 mIU/ml 22 Comprehensive Met Panel-FCMG 03/23/2017 [facility] Sodium 138 mmol/L 135- 146 23 Potassium 3.8 mmol/L 3.5-5.2 Chloride# 102 mmol/L 97-110 24 Carbon Dioxide 28 mmol/L 24-34 Glucose 84 mg/dL 70-105 BUN 11 mg/dL 6-26 Creatinine 0.7 mg/dL 0.5-1.4 Calcium 9.3 mg/dL 8.5-10.2 Total Protein 6.8 g/dL 6.0-8.0 Albumin 4.3 g/dL 3.6-4.9 Globulin 2.5 g/dL 2.0-3.5 A/G Ratio 1.7 Ratio 1.0-2.2 Total Bilirubin 0.4 mg/dL 0.1-1.3 Alkaline Phosphatase 73 U/L 24-140 Alt 38 U/L 3-42 Ast 27 U/L 8-42 Sheryl Egfr >60 >60 25 Non Sheryl Egfr >60 >60 26 Anion Gap 8 mmol/L 7-16 27 Lipid 03/23/2017 [facility] Cholesterol 197 mg/dL 50-199 Triglycerides 208 mg/dL High 30-200 HDL 30 mg/dL Low 35-85 28 Chol/ HDL Ratio 6.6 ratio High 3.7-5.6 VLDL 42 mg/dL High 2-29 LDL (Calc) 125 mg/dL High 20-99 29 Affirm 11/13/2016 [facility] Trichomonas Vaginalis Negative Negative Gardnerella Vaginalis Negative Negative Shantelle Species Negative Negative Comprehensive Metabolic 08/17/2016 [facility] Sodium 140 mmol/L (136- 145) (CMP) [phone] Potassium 4.8 mmol/L (3.6-5.2) Chloride 102 mmol/L [...] >60 ml/min/1.73m2 (>59) GFR Interpretation <SEE NOTE> 30 Lipid 08/17/2016 [facility] Cholesterol @ 203 mg/dL High (0-200) [phone] Triglyceride @ 201 mg/dL High (30-200) HDL Cholesterol @ 32 mg/dL Low (>40) 31 Chol/HDL Ratio 6.3 RATIO 32 LDL Chol (Calc) 131 mg/dL High (<130) 33 Laboratory 08/17/2016 [facility] TSH,Ultrasensitive @ 0.913 (0.360- 4.170) test finding [phone] mIU/L 25 Hydroxy Vit D @ 26 ng/mL Low (31-100) 34 Affirm 02/03/2016 [facility] Trichomonas Vaginalis Negative Negative Gardnerella Vaginalis Negative Negative Shantelle Species Negative Negative Laboratory test finding 02/03/2016 [facility] Rubella Igg AB POSITIVE AI 35 Measles Igg AB POSITIVE AI 36 Mumps Igg (Immune) POSITIVE AI 37 Hep B S AB Quant 122.0 mIU/mL 38 Varicella Zost Igg POSITIVE AI 39 Laboratory test finding 02/03/2016 [facility] TSH 1.54 uIU/mL 0.35-4.94 Vit D,25 Hydroxy 37 ng/mL 31-100 CBC With Auto Diff 08/20/2015 [facility] WBC 7.3 K/uL 4.1-11.0 RBC 4.17 M/uL [...] 0.0 K/uL 0.0-0.3 Laboratory test finding 08/20/2015 [facility] TSH 1.14 uIU/mL 0.35-4.94 Vit D,25 Hydroxy 39 ng/mL 31-100 Laboratory test 04/10/2015 Done In [facility] Office HCG (Urine NEG finding Yes/No)RL Laboratory test 04/10/2015 [facility] Lipase 81 U/L 11-82 finding Esr 7 mm/hr 0-20 Urine Culture Microbiology res <SEE NOTE> 40 Comprehensive Metabolic (CMP) 04/10/2015 [facility] Sodium 137 mmol/L 134- 142 Potassium 4.5 [...] 9 mmol/L 6-14 Sheryl Egfr >60 >60 41 Non Sheryl Egfr >60 >60 42 CBC With Auto Diff 04/10/2015 [facility] WBC 8.6 K/uL 4.1-11.0 RBC 4.28 M/uL [...] Abs Basophils 0.1 K/uL 0.0-0.3 Laboratory test finding 01/28/2015 [facility] TSH 1.07 uIU/mL 0.35-4.94 Vit D,25 Hydroxy 53 ng/mL 31-100 Hemoglobin A1c 4.5 % 4.1-5.9 Laboratory test finding 01/28/2015 [facility] Pap SEE NOTE 43 Laboratory test finding 06/26/2014 [facility] Vit D,25 Hydroxy 32 ng/mL 31- 100 Comprehensive Metabolic 06/26/2014 [facility] Sodium 138 mmol/L 134-142 (CMP) Potassium 4.5 [...] 11 mmol/L 6-14 Sheryl Egfr >60 >60 44 Non Sheryl Egfr >60 >60 45 Laboratory test finding 06/26/2014 [facility] TSH 0.66 [...] Iron Saturation 37.3 % 13.0-45.0 Affirm 06/26/2014 [facility] Trichomonas Vaginalis Negative Negative Gardnerella Vaginalis Negative Negative Shantelle Species Negative Negative CBC With Auto Diff 01/01/2014 [facility] WBC 6.8 K/uL 4.1-11.0 RBC 4.00 M/uL [...] 47 ng/mL 31-100 Comprehensive Metabolic (CMP) 01/01/2014 [facility] Sodium 137 mmol/L 134- 142 Potassium 4.3 [...] 9 mmol/L 6-14 Sheryl Egfr >60 >60 46 Non Sheryl Egfr >60 >60 47 Lipid 01/01/2014 [facility] Cholesterol 162 mg/dL 50-199 Triglycerides 253 mg/dL High 30-200 HDL 32 mg/dL Low 35-85 48 Chol/ HDL Ratio 5.1 ratio 3.7-5.6 VLDL 51 mg/dL High 2-29 LDL (Calc) 79 mg/dL 20-99 49 Laboratory test finding 01/01/2014 [facility] Pap SEE NOTE 50 Laboratory test finding 12/16/2012 [facility] Pap SEE NOTE 51 CBC With Auto Diff 11/14/2012 [facility] WBC [...] 40 ng/mL 31-100 [facility] Pap SEE NOTE 52 Comprehensive Metabolic (CMP) 10/28/2011 [facility] Sodium 137 mmol/L 134- 142 53 Potassium 4.4 mmol/L 3.5-5.2 Chloride 101 mmol/L [...] 11 mmol/L 6-14 Sheryl Egfr >60 >60 54 Non Sheryl Egfr >60 >60 55 CBC With Auto Diff 10/28/2011 [facility] WBC [...] K/uL 0.0-0.3 CBC With Auto Diff 07/21/2011 [facility] WBC 8.0 K/uL 4.1-11.0 56 RBC 4.16 M/uL 4.00-5.40 Hemoglobin 14.1 gm/dL [...] 0.1 K/uL 0.0-0.3 Comprehensive Metabolic (CMP) 07/21/2011 [facility] Sodium 140 mmol/L 135- 144 Potassium 4.7 [...] mmol/L 8-16 Non Sheryl Egfr >60 >60 57 Sheryl Egfr >60 >60 58 Laboratory test finding 07/21/2011 [facility] TSH 0.46 uIU/mL 0.34-5.60 Vit D,25 Hydroxy 41 ng/mL 31-100 Affirm 07/21/2011 [facility] Trichomonas Vaginalis Negative Negative Gardnerella Vaginalis Negative Negative Shantelle Species Negative Negative Laboratory test 07/21/2011 [facility] Urine Culture Microbiology res 59 finding <SEE NOTE> Laboratory test 11/25/2010 [facility] Pap SEE NOTE 60 finding CBC With Auto Diff 11/25/2010 [facility] WBC 6.8 K/uL 4.1-11.0 61 RBC 4.04 M/uL 4.00-5.40 Hemoglobin 13.4 gm/dL [...] mmol/L 8-16 Non Sheryl Egfr >60 >60 62 Sheryl Egfr >60 >60 63 Iron Panel 11/25/2010 [facility] Iron, Total 91 g/dL 28-170 Transferrin 220 mg/dL 192-382 Tibc (calc) 307 g/dL 261-478 % Iron Saturation 29.6 % 13.0-45.0 Laboratory test finding 11/25/2010 [facility] TSH 0.21 uIU/mL Low 0.34-5.60 Vit D,25 Hydroxy 48 ng/mL 31-100 Laboratory test 10/28/2009 [facility] (Do not Use) [facility] Pap - (SEE NOTE) 64, 65 finding [facility] [place] [address] [phone] Laboratory test 09/19/2009 [facility] (Do not Use) Vaginitis (SEE NOTE) 66, 67 finding [facility] [place] [address] Test(Affirm) [phone] Laboratory test 06/25/2009 [facility] (Do not Use) Throat PO (SEE NOTE) 68 finding [facility] Culture - [place], [place] [id number] [phone] CBC With Auto 05/17/2009 [facility] (Do not Use) WBC 7.4 K/ul 4.0-1 69 Diff [facility] 0.9 [place], [place] [id number] [phone] RBC 4.02 M/ul Low 4.20-5.40 Hemoglobin 13.4 [...] Use) TSH 0.46 uIU/ml 0.34 -5.60 finding [facility] [place] [address] [phone] Vitamin D, 25 Hydroxy 31 ng/mL 31-100 Laboratory test 02/27/2009 [facility] (Do not Use) Vaginitis Direct (SEE NOTE) 70 finding [facility] Test(Affirm) [place] [address] [phone] Laboratory test 10/18/2008 [facility] (Do not Use) [facility] Pap - LA (SEE NOTE) 71 finding [facility] [place] [address] [phone] Laboratory test 10/18/2008 [facility] (Do not Use) Vitamin D, 25 29 ng/mL Low 31-10 72 finding [facility] Hydroxy 0 [place] [address] [phone] Lipid Panel 10/18/2008 [facility] (Do not Use) Cholesterol 166 mg/dL 50 -19 [facility] 9 [place], [place] [id number] [phone] Triglycerides 142 mg/dL 10-150 HDL 30 mg/dL Low 35-85 73 Chol/HDL Ratio 5.5 Ratio 74 VLDL 28 mg/dL LDL (Calc) 108 mg/dL 20-129 75 Iron Panel 10/18/2008 [facility] (Do not Use) Iron, Total 85 g/dL 28- 170 [place], [place] [id number] [phone] Transferrin 220 mg/dL 192-382 Tibc (Calc) 308 g/dL 261-478 % Saturation (Calc) 27.6 % 13.0-45.0 CBC With Auto Diff 10/18/2008 [facility] (Do not Use) WBC 7.1 K/ul 4.0- 10.9 [facility] [place] [address] [phone] RBC 4.17 M/ul Low 4.20-5.40 Hemoglobin 13.5 [...] Use) TSH 0.43 uIU/ml 0.34 -5.60 finding [facility] [place] [address] [phone] Laboratory test 10/18/2008 [facility] (Do not Use) Vaginitis (SEE NOTE) 76 finding [facility] [place] [address] Test(Affirm) [phone] -LA CBC With Auto 03/26/2008 [facility] (Do not Use) WBC 7.7 K/ul 4.0-10.9 Diff [facility] [place] [address] [phone] RBC 3.99 M/ul Low 4.20-5.40 Hemoglobin 12.9 [...] Use) TSH 0.38 uIU/ml 0.34 -5.60 [place] [address] [phone] Laboratory test 09/29/2007 [facility] (Do not Use) Vitamin D, 25 26 ng/mL 19-58 [place] [address] [phone] CBC With Auto 09/29/2007 [facility] (Do not Use) WBC 5.5 K/ul 4.0-10[place]9 [place] [address] [phone] RBC 4.25 M/ul 4.20-5.40 Hemoglobin 13.6 GM/dl [...] Use) TSH 0.43 uIU/ml 0.34 -5.60 [place] [address] [phone] Basic (BMP) 09/29/2007 [facility] (Do not Use) Sodium 141 mmol/L 135- 144 [facility] [place] [address] [phone] Potassium 4.3 mmol/L 3.6-5.2 Chloride 103 mmol/L 97-110 Carbon Dioxide 30 mmol/L 23-33 Glucose 93 mg/dL 70-105 BUN 12 mg/dL 6-22 Creatinine 0.7 mg/dL 0.5-1.3 BUN/CR 17 Ratio 12.0-20.0 Anion Gap 12 mmol/L 8-16 Calcium 9.6 mg/dL 8.6-10.2 GFR Calculation > 60 mL/min 77 GFR For > 60 mL/min 78 Laboratory test 09/28/2006 [facility] (Do not Use) Papbryear, SEE REFERENCE 79 finding [facility] Thinprep - LA LA <SEE NOTE> [place] [address] [phone] Laboratory test 04/16/2006 [facility] (Do not Use) TSH 0.69 uIU/ml 0.50 - finding [facility] [address] [place] [address] [phone] CBC With Auto 04/16/2006 [facility] (Do not Use) WBC 8.3 K/ul 4.0-1 Diff [facility] 0.[address] [place] [id number] [phone] RBC 3.90 M/ul Low 4.20-5.40 Hemoglobin 13.1 [...] Use) Iron, Total 69 g/dL 28- 170 [facility] [place], [place] [id number] [phone] Transferrin 190 mg/dL Low 192-382 Tibc (Calc) 266 g/dL 261-478 % Saturation (Calc) 25.9 % 13.0-45.0 CBC With Auto Diff 01/12/2006 [facility] (Do not Use) WBC 7.8 K/ul 4.0- 10.9 80 [facility] [place] [address] [phone] RBC 4.18 M/ul Low 4.20-5.40 Hemoglobin 13.4 [...] Use) Iron, Total 59 g/dL 28- 170 [facility] [place] [address] [phone] Transferrin 178 mg/dL Low 192-382 Tibc (Calc) 249 g/dL Low 261-478 % Saturation (Calc) 23.7 % 13.0-45.0 Laboratory test 01/12/2006 [facility] (Do not Use) TSH 0.31 uIU/ml Low 0.50-6.00 finding [facility] [place] [address] [phone] Laboratory test 10/20/2005 [employer] (Do not Use) Urine NO GROWTH finding [facility] [address] [phone] Laboratory test 09/14/2005 [employer] (Do not Use) TSH 1.41 uIU/ml 0.50 -6.00 finding [facility] [place], [place] [id number] [phone] Hematocrit 41.1 % 36.0-47.0 Iron Profile 03/13/2005 [employer] (Do not Use) Iron, 136 g/dL 50- 170 (Iron,Tibc,%Sat) [facility] [address] [phone] Total Iron Binding Capacity 248 g/dL Low 261-478 % Iron Saturation 54.8 % High 13.0-45.0 CBC 03/13/2005 [employer] (Do not Use) WBC 7.6 K/ul 4.1-10.9 [facility] [place] [address] [phone] RBC 4.44 M/ul 4.20-6.30 Hemoglobin 14.2 GM/dl [...] Use) Intact PTH 30.7 10.0- 73.0 (Centrex)-Freeze [facility] pg/[place] [address] [phone] Laboratory test 03/13/2005 [employer] (Do not Use) Vitamin D, 17.8 8.9- 46.7 finding [facility] 25-Hydroxy ng/[place] [address] [phone] Calcium, Ionized - Centrex 5.5 mg/dL 4.5-5.6 PTH,Intact 03/13/2005 [employer] (Do not Use) Calcium, 8.8 mg/dL 8.4- 10.6 (Centrex)-Freeze [facility] Serum Sample [place], [place] [phone] Intact PTH 30.7 pg/mL 10.0-73.0 Calcium (Calc) 8.8 mg/dL 8.4-10.6 Laboratory test 10/24/2004 [facility] (Do not Use) Prolactin 45.2 ng/ml 81 finding [facility] [place], [place] [id number] [phone] TSH 1.11 uIU/ml 0.50-6.00 CBC 10/24/2004 [facility] (Do not Use) WBC 7.7 K/ul 4.1-10.9 [facility] [place] [address] [phone] RBC 4.20 M/ul 4.20-6.30 Hemoglobin 13.7 GM/dl [...] Use) TSH 0.93 uIU/ml 0.50 -6.00 [place] [address] [phone] HCG, Quantitative <2 mIU/ml 82 Prolactin 37.0 ng/ml 83 CBC 02/19/2004 [facility] (Do not Use) WBC 8.6 K/ul 4.1-10.9 [place] [address] [phone] RBC 4.13 M/ul Low 4.20-6.30 Hemoglobin 13.6 [...] Use) TSH 0.85 uIU/ml 0.50 -6.00 [place] [address] [phone] Iron Profile 02/19/2004 [facility] (Do not Use) Iron, Total 86 g/dL 50-170 (Iron,Tibc,%Sat) [place] [address] [phone] Total Iron Binding Capacity 261 g/dL 261-478 % Iron Saturation 32.9 % 13.0-45.0 Laboratory test 11/22/2003 [facility] (Do not Use) Ceruloplasmin 32.0 mg/ dL 14.0-50.0 [place] [address] [phone] CBC 11/22/2003 [facility] (Do not Use) WBC 6.1 K/ul 4.1-10.9 [place] [address] [phone] RBC 4.33 M/ul 4.20-6.30 Hemoglobin 13.1 GM/dl [...] Use) TSH 1.13 uIU/ml 0.50 -6.00 [place] [address] [phone] Ferritin 27.9 ng/ml 6-115 Hepatic Liver 11/22/2003 [facility] (Do not Use) Total Protein 7.3 g/dL 6.2-8.3 [place] [address] [phone] Albumin 4.2 g/dL 3.5-5.0 Total Bilirubin 0.7 mg/dL 0.1-1.3 Direct Bilirubin 0.0 mg/dL 0.0-0.4 Ast 38 U/L 8-42 Alt 66 U/L High 3-42 Alkaline Phosphatase 63 U/L 24-108 Laboratory test 11/22/2003 [facility] (Do not Use) Tim Screen NEGATIVE 84 [place] [address] [phone] Iron Profile 11/22/2003 [facility] (Do not Use) Iron, Total 79 g/dL 50-170 (Iron,Tibc,%Sat) [facility] [place] [address] [phone] Total Iron Binding Capacity 300 g/dL 261-478 % Iron Saturation 26.3 % 13.0-45.0 Laboratory test 10/26/2003 [facility] (Do not Use) TSH 6.29 uIU/ml High 0.50-6.00 finding [facility] [place] [address] [phone] Vitamin B12 729 pg/mL 230-1050 Folate Folate result gr <SEE NOTE> ng/ml 3.0-16.0 85 Hepatic Liver 10/26/2003 [facility] (Do not Use) Total Protein 7.4 g/dL 6.2-8[place]3 [place] [address] [phone] Albumin 4.5 g/dL 3.5-5.0 Total Bilirubin 0.7 mg/dL 0.1-1.3 Direct Bilirubin 0.1 mg/dL 0.0-0.4 Ast 50 U/L High 8-42 Alt 88 U/L High 3-42 Alkaline Phosphatase 59 U/L 24-108 Iron Profile 10/26/2003 [facility] (Do not Use) Iron, Total 88 g/dL 50-170 (Iron,Tibc,%Sat) [facility] [place] [address] [phone] Total Iron Binding Capacity 314 g/dL 261-478 % Iron Saturation 28.0 % 13.0-45.0 CBC 10/26/2003 [facility] (Do not Use) WBC 7.2 K/ul 4.1-10.9 [facility] [place] [address] [phone] RBC 4.25 M/ul 4.20-6.30 Hemoglobin 12.4 GM/dl [...] Thyroid 253.00 IU/mL High 0.0-35.0 test finding [facility] [place] [address] (Tpo) [phone] Hepatitis 10/26/2003 [facility] (Do not Use) Hepatitis B NEGATIVE Negative Acute Panel [facility] [address] Antigen [phone] Hepatitis B Core Antibody, Igm NEGATIVE 86 Hepatitis A Antibody, Igm NEGATIVE 87 Hepatitis C Antibody NEGATIVE Negative Iron Profile 09/27/2003 [facility] (Do not Use) Iron, 19 g/dL Low 50- 170 (Iron,Tibc,%Sat) [facility] [place] [address] [phone] Total Iron Binding Capacity 407 g/dL 261-478 % Iron Saturation 4.6 % Low 13.0-45.0 CMP 09/27/2003 [facility] (Do not Use) Sodium 139 mmol/L 135-145 [facility] [place] [address] [phone] Potassium 4.5 mmol/L 3.4-5.3 Chloride 105 mmol/L [...] Use) TSH 5.06 uIU/ml 0.50 -6.00 finding [facility] [place] [address] [phone] Free T4 0.77 ng/dL 0.75-1.80 CBC 09/27/2003 [facility] (Do not Use) WBC 6.4 K/ul 4.1-10.9 [facility] [place] [address] [phone] RBC 4.10 M/ul Low 4.20-6.30 Hemoglobin 11.1 [...] not Use) Hepatitis B NEGATIVE Negative finding [facility] [place] [address] [phone] Laboratory test 05/02/2002 [facility] (Do not Use) Esr 12 MM/HR 0-20 finding [facility] [place] [address] [phone] CBC 05/02/2002 [facility] (Do not Use) WBC 8.9 K/ul 4.1-10.9 [facility] [place] [address] [phone] RBC 4.08 M/ul Low 4.2-6.3 Hemoglobin 11.3 [...] 0.1-0.5 Absolute Basophils 0.1 K/ul 0.1-0.3 1 [facility] [place] [address] CYTOLOGY REPORT Source of Specimen(s): SurePath Vaginal/ [...] mallika ICD9 Code: Z01.411 CPT code: A: [id number] Unless otherwise specified, testing performed by [facility] [place] [address] [place] [address] 2 This sample is drawn by:[facility]. 3 Updated reference range on new analyzer 4 Updated reference range on new analyzer 5 Concerning GFR Guidelines for Americans: Normal function or mild renal disease, if clinically at risk: >/=60 mL/min Moderately decreased: 30-59 Severely decreased: 15-29 Renal failure: <15 6 Concerning GFR Guidelines: Normal function or mild [...] drugs that are excreted by the kidneys. 7 Updated Reference Range 8 Per NCEP ATP III Guidelines: Results lower than 40 mg/dL are suggestive of increased risk for coronary artery disease. Results > or=to 60 mg/dL are considered a negative risk factor. 9 Per NCEP ATP III Guidelines: Normal Population <130 Patients with medical conditions: CHD/DM Optimal: <100 Borderline high: 130-159 High: 160-189 Very high: >189 10 Clinical Guidelines for recommended serum 25(OH)Vitamin D Deficient at less than 20 ng/mL Insufficient at 20 to <30 ng/mL Sufficient at 30-100 ng/mL Toxicity at greater than 100 ng/mL 11 SPECIMEN DESCRIPTION ABSCESS SPECIAL REQUESTS NONE GRAM STAIN MANY (>25/LPF) WHITE BLOOD CELLS NO BACTERIA CULTURE RESULTS FEW STAPHYLOCOCCUS, COAGULASE NEGATIVE REPORT STATUS FINAL 03/05/2018 Unless otherwise specified, testing performed by [facility] [address] [place] [address] 12 Updated reference range on new analyzer 13 Updated reference range on new analyzer 14 Concerning GFR Guidelines for Americans: Normal function or mild renal disease, if clinically at risk: >/=60 mL/min Moderately decreased: 30-59 Severely decreased: 15-29 Renal failure: <15 15 Concerning GFR Guidelines: Normal function or mild [...] drugs that are excreted by the kidneys. 16 Updated Reference Range 17 Per NCEP ATP III Guidelines: Results lower than 40 mg/dL are suggestive of increased risk for coronary artery disease. Results > or=to 60 mg/dL are considered a negative risk factor. 18 Per NCEP ATP III Guidelines: Normal Population <130 Patients with medical conditions: CHD/DM Optimal: <100 Borderline high: 130-159 High: 160-189 Very high: >189 19 Clinical Guidelines for recommended serum 25(OH)Vitamin D Deficient at less than 20 ng/mL Insufficient at 20 to <30 ng/mL Sufficient at 30-100 ng/mL Toxicity at greater than 100 ng/mL 20 [facility] PharmAssistant [facility]. [facility] [place] [address] CYTOLOGY REPORT Source of Specimen(s): SurePath Vaginal/ [...] Z01.419 Unless otherwise specified, testing performed by [facility] [place] [address] [place] [address] 21 FSH Female Normal Values: Mid-Follicular: 3.9-8.8 mIU/mL Mid-cycle Peak: 4.5-22.5 mIU/mL Mid-Luteal: 1.8-5.1 mIU/mL Post-menopausal:16.7-113.6 mIU/mL 22 Lutenizing Hormone Female Normal Values: Mid-Follicular: 2.1-10.9 mIU/mL Mid-cycle Peak: 19.2-103.0 mIU/mL Mid-Luteal: 1.2-12.9 mIU/mL Post-menopausal:10.9-58.6 mIU/mL 23 Updated reference range on new analyzer 24 Updated reference range on new analyzer 25 Concerning GFR Guidelines for Americans: Normal function or mild renal disease, if clinically at risk: >/=60 mL/min Moderately decreased: 30-59 Severely decreased: 15-29 Renal failure: <15 26 Concerning GFR Guidelines: Normal function or mild [...] drugs that are excreted by the kidneys. 27 Updated reference range on new analyzer 28 Per NCEP ATP III Guidelines: Results lower than 40 mg/dL are suggestive of increased risk for coronary artery disease. Results > or=to 60 mg/dL are considered a negative risk factor. 29 Per NCEP ATP III Guidelines: Normal Population <130 Patients with medical conditions: CHD/DM Optimal: <100 Borderline high: 130-159 High: 160-189 Very high: >189 30 NORMAL KIDNEY FUNCTION OR MILD DISEASE - GFR >OR=60 CHRONIC KIDNEY DISEASE - GFR 15 - 59 RENAL FAILURE - GFR <15 Est. GFR calculation based on the MDRD study equation, which assumes a steady state for creatinine. Est. GFR should not be used for medication dosing. 31 PER NCEP ATP III GUIDELINES: RESULTS LOWER THAN 40 MG/DL ARE SUGGESTIVE OF INCREASED RISK FOR CORONARY ARTERY DISEASE. RESULTS > OR=TO 60 MG/DL ARE CONSIDERED A NEGATIVE RISK FACTOR. 32 INTERPRETATION OF CHOL-HDL RATIO CHD RISK FEMALE MALE VERY HIGH >8.3 >14.3 HIGH 5.6- 8.3 6.7- 14.3 AVERAGE 3.7- 5.6 4.0- 6.7 BELOW AVERAGE 2.5- 3.7 2.7- 4.0 PROTECTED <2.5 <2.7 33 PER NCEP ATP III GUIDELINES: OPTIMAL < 100 NEAR OPTIMAL 100 - 129 BORDERLINE HIGH 130 - 159 HIGH 160 - 189 VERY HIGH > 189 34 A REVIEW OF THE LITERATURE SUGGESTS THE FOLLOWING RANGES FOR THE CLASSIFICATION OF 25-OH VITAMIN D STATUS: VITAMIN D STATUS 25-OH VITAMIN D DEFICIENCY <20 NG/ML INSUFFICIENCY 20-30 NG/ML SUFFICIENCY 31 - 100 NG/ML TOXICITY > 100 NG/ML A PEDIATRIC REFERENCE RANGE HAS NOT BEEN ESTABLISHED USING THIS METHOD. 35 IgG antibody to Rubella detected. IgG antibody levels are at a level considered to indicate positive immunity. Unless otherwise specified, testing [place] [address] 36 IgG antibody to Measles detected. This may indicate that the patient was exposed to Measles through infection or vaccination. Unless otherwise specified, testing [place] [address] 37 IgG antibody to Mumps detected. This may indicate that the patient was exposed to Mumps through infection or vaccination. Unless otherwise specified, testing [place] [address] 38 A MINIMUM LEVEL OF 10 mIU/mL IS SUGGESTED TO INSURE COMPLETE IMMUNITY. IF NEGATIVE OR LESS THAN 10 mIU/mL AT 1 TO 2 MONTHS FOLLOWING THE FINAL DOSE OF THE HEP B VACCINE SERIES, REVACCINATION IS RECOMMENDED FOR SELECT PATIENT POPULATIONS (SEE MMWR 2011:60(7)-JUL 10, 2011). Unless otherwise specified, testing [place] [address] 39 IgG antibody to VZV detected. This may indicate that the patient was exposed to VZV through infection or vaccination. Unless otherwise specified, testing performed by [facility], [place] [address] 40 Microbiology results SOURCE URINE FINAL RESULT No growth 41 Concerning GFR Guidelines for Americans: Normal function or mild renal disease, if clinically at risk: >/=60 mL/min Moderately decreased: 30-59 Severely decreased: 15-29 Renal failure: <15 42 Concerning GFR Guidelines: Normal function or mild [...] drugs that are excreted by the kidneys. 43 [facility] [employer] [facility] [employer]. [facility] [place] [address] GYNECOLOGIC CYTOLOGY REPORT Accession Number: [id number] Source of Specimen(s): A: SurePath Vaginal/ Cervical/ [...] 01/31/2015 Electronically Signed Out By Lori MELCHOR(ASCP) [facility] mallika Unless otherwise specified, testing performed by [facility] [place] [address] [place] [address] 44 Concerning GFR Guidelines for Americans: Normal function or mild renal disease, if clinically at risk: >/=60 mL/min Moderately decreased: 30-59 Severely decreased: 15-29 Renal failure: <15 45 Concerning GFR Guidelines: Normal function or mild [...] drugs that are excreted by the kidneys. 46 Concerning GFR Guidelines for Americans: Normal function or mild renal disease, if clinically at risk: >/=60 mL/min Moderately decreased: 30-59 Severely decreased: 15-29 Renal failure: <15 47 Concerning GFR Guidelines: Normal function or mild [...] drugs that are excreted by the kidneys. 48 Per NCEP ATP III Guidelines: Results lower than 40 mg/dL are suggestive of increased risk for coronary artery disease. Results > or=to 60 mg/dL are considered a negative risk factor. 49 Per NCEP ATP III Guidelines: Normal Population <130 Patients with medical conditions: CHD/DM Optimal: <100 Borderline high: 130-159 High: 160-189 Very high: >[address] [facility] [address] [place] [address] GYNECOLOGIC CYTOLOGY REPORT Accession Number: [id number] Source of Specimen(s): A: SurePath Vaginal/ Cervical/ [...] Reported: 01/03/2014 Electronically Signed Out By Lori Obregon CT(ASCP) [facility]CM[facility]am [facility] Unless otherwise specified, testing performed by [facility] [address] [place] [id number] 51 LABORATORY [facility]. [address] [place] [address] GYNECOLOGIC CYTOLOGY REPORT Accession Number: [id number] Source of Specimen(s): A: SurePath Vaginal/ Cervical/ [...] Electronically Signed Out By Jo Sunshine CT(ASCP) [facility], P[facility]CMariam [facility] Unless otherwise specified, testing performed by [facility] [address] [place] [id number] 52 LABORATORY [facility]. [address] [place] [address] GYNECOLOGIC CYTOLOGY REPORT Accession Number: [id number] Source of Specimen(s): A: SurePath Vaginal/ Cervical/ Endocervical Pap Smear - One Vial Clinical Diagnosis and History: Date of Last Menstrual Period: None Provided Specimen Adequacy Satisfactory for evaluation Presence of endocervical/transformation zone component General Categorization Negative for intraepithelial lesion or malignancy Interpretation NEGATIVE FOR INTRAEPITHELIAL LESION OR MALIGNANCY Reported: 12/17/2011 Electronically Signed Out By Fina Chavez SCT(ASCP)(IAC) Manager Functional: Lori Gonzalez CT(ASCP) JCLizzie [facility] PMariamCMariam cook QC Reviewed: Y Unless otherwise specified, testing performed by [facility] [address] [place] [address] 53 This sample is drawn by:MM 54 Concerning GFR Guidelines for Americans: Normal [...] that are excreted by the kidneys. 56 This sample is drawn by:[facility]. 57 Concerning GFR Guidelines: Normal function or mild [...] drugs that are excreted by the kidneys. 58 Concerning GFR Guidelines for Americans: Normal function or mild renal disease, if clinically at risk: >/=60 mL/min Moderately decreased: 30-59 Severely decreased: 15-29 Renal failure: <15 59 Microbiology results SOURCE URINE RESULT No growth [address] [facility]. [address] [place] [address] GYNECOLOGIC CYTOLOGY REPORT Accession Number: [id number] Source of Specimen(s): A: SurePath Vaginal/ Cervical/ [...] 11/27/2010 Electronically Signed Out By Lori MELCHOR(ASCP) [facility] dss Unless otherwise specified, testing performed by [facility] [place] [address] 61 This sample is drawn by:This sample is drawn by: 62 Concerning GFR Guidelines: Normal function or mild [...] drugs that are excreted by the kidneys. 63 Concerning GFR Guidelines for Americans: Normal function or mild renal disease, if clinically at risk: >/=60 mL/min Moderately decreased: 30-59 Severely decreased: 15-29 Renal failure: <15 64 This sample is drawn by: marianne 65 [facility] [place] [facility] [address] GYNECOLOGIC CYTOLOGY REPORT Accession Number: [id number] Source of Specimen(s): A: SurePath Pap Smear (NOS) - One Vial Clinical Diagnosis and History: Date of Last Menstrual Period: 3 weeks Other Clinical Conditions: Last Pap Smear: 1 yr normal Specimen Adequacy Satisfactory for evaluation Scant/no endocervical component General Categorization Negative for intraepithelial lesion or malignancy Interpretation NEGATIVE FOR INTRAEPITHELIAL LESION OR MALIGNANCY Reported: 10/30/2009 Electronically Signed Out By Nishi MELCHOR([facility]) [facility] dol ICD9 Code: V72.31 Unless otherwise specified, testing performed by [facility] [place] [address] 66 This sample is drawn by: MARIANNE 67 SPECIMEN DESCRIPTION VAGINAL/CERVICAL RESULT NEGATIVE FOR TRICHOMONAS VAGINALIS POSITIVE FOR GARDNERELLA VAGINALIS NEGATIVE FOR SHANTELLE SPECIES REPORT STATUS FINAL 09/19/2009 Unless otherwise specified, testing performed by [facility] [address] [place] [address] 68 SPECIMEN DESCRIPTION THROAT SWAB CULTURE RESULTS NORMAL [place] AFTER 1 DAY Unless otherwise specified, testing performed by [facility] [address] [place] [address] 69 This sample is drawn by:[facility]. 70 SPECIMEN DESCRIPTION CUL DE SAC RESULT NEGATIVE FOR TRICHOMONAS VAGINALIS NEGATIVE FOR GARDNERELLA VAGINALIS NEGATIVE FOR SHANTELLE SPECIES REPORT STATUS FINAL 02/27/2009 Unless otherwise specified, testing performed by [facility] [address] [place] [address] 71 [facility]. [address] [place] [address] GYNECOLOGIC CYTOLOGY REPORT Accession Number: [id number] Source of Specimen(s): A: SurePath Pap Smear [...] 10/22/2008 Electronically Signed Out By Lori MELCHOR(ASCP) [facility] PathologyWillam ICD9 Code: V72.31 Unless otherwise specified, testing performed by [facility] [address] [place] [address] 72 This sample is drawn by: MARIANNE 73 PER NCEP ATP III GUIDELINES: RESULTS LOWER THAN 40 MG/DL ARE SUGGESTIVE OF INCREASED RISK FOR CORONARY ARTERY DISEASE. RESULTS > OR=TO 60 MG/DL ARE CONSIDERED A NEGATIVE RISK FACTOR. 74 INTERPRETATION OF CHOL-HDL RATIO CHD RISK FEMALE MALE VERY HIGH >8.3 >14.3 HIGH 5.6 - 8.3 6.7 - 14.3 AVERAGE 3.7 - 5.6 4.0 - 6.7 BELOW AVERAGE 2.5 - 3.7 2.7 - 4.0 PROTECTED <2.5 <2.7 75 PER NCEP ATP III GUIDELINES: OPTIMAL: <100 NEAR OPTIMAL: 100 - 129 BORDERLINE HIGH: 130 - 159 HIGH: 160 - 189 VERY HIGH: >189 76 SPECIMEN DESCRIPTION ENDOCERVICAL RESULT NEGATIVE FOR TRICHOMONAS VAGINALIS POSITIVE FOR GARDNERELLA VAGINALIS NEGATIVE FOR SHANTELLE SPECIES REPORT STATUS FINAL 10/18/2008 Unless otherwise specified, testing performed by [facility] [address] [place] [address] 77 Concerning GFR GUIDELINES: Normal Function or Mild [...] drugs that are excreted by the kidneys. 78 Concerning GFR GUIDELINES: Normal Function or Mild Renal Disease, if clinically at risk: >/=60mL/min Moderately decreased: 30-59 Severely decreased: 15-29 Renal Failure: <15 79 SEE REFERENCE LAB REPORT 80 LIBRA 01/12 AJK 81 Prolactin Female Normal Values: Pre-menopausal: 2.1 - 47.6 ng/ml Post-menopausal: 0.0 - 41.4 ng/ml 82 . Less than 5: Negative for 6 [...] HCG-like substances, trophoblastic or non-trophoblastic neoplasms. . 83 Prolactin Female Normal Values: Pre-menopausal: 2.1 - 47.6 ng/ml Post-menopausal: 0.0 - 41.4 ng/ml 84 As of 09/14/03 TIM Screens are performed using the HYCOR TIM kit. 85 Folate result greater than 23.0 ng/ml 86 Positive Hep B Core Antibody IgM suggests an acute or recent Hepatitis B viral infection. . 87 POSITIVE Hep A Antibody IgM suggests an acute or recent Hepatitis A Viral infection. . NEGATIVE Hep A Antibody IgM and POSITIVE Hep A Antibody (IgG + IgM) indicates the presence of Hep A Antibody (IgG). This confirms previous exposure and immunity to the Hepatitis A Virus. . Procedures Date Code Description Status 11/15/2018 14146 Electrocardiogram Complete Completed 11/15/2018 42308 Destruction Benign Lesions Other Than Skin Tags Up To Completed 14 Lesions 09/07/2018 [id number] Mammogram Completed 06/20/2018 42018 I & D Abscess Simple Completed 09/24/2017 07675 Remove Impacted Cerumen Requiring Instrumentation Completed 03/26/2016 [id number] Mammogram Completed 05/31/2015 07048 Admin Of Inj (Therapeutic Phrophylactic Or Diagnostic Completed Subq Inj 05/31/2015 74467 Admin Of Inj (Therapeutic Phrophylactic Or Diagnostic Completed Subq Inj 05/31/2015 67248 Electrocardiogram Complete Completed 02/27/2015 [id number] Mammogram Completed 12/31/2009 88914 ECHO Transthoracis 2D W Spectral Doppler Completed 12/06/2009 92566 ECHO Transthoracis 2D W Spectral Doppler Completed 05/17/2009 14954 Admin Of Inj (Therapeutic Phrophylactic Or Diagnostic Completed Subq Inj 09/26/2004 50005 Doppler Color Flow Velocity Mapping Completed 09/26/2004 83407 Doppler Echocardiography Complete Completed 09/26/2004 54676 ECHO Complete W/O Spectral Or Color Doppler Completed 05/02/2002 73552 Electrocardiogram Complete Completed Encounters Type Date Location [...] 06/08/2018 11:00a Netta Avery Z01.411 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 (general) (routine) w abnormal [...] Mercer, L02.412 Cutaneous abscess of RN MS LEAD MACHINIST LEFT axilla N64.4 Mastodynia Z68.26 Body mass index (BMI) 26.0-26.9, adult Office Visit 09/24/2017 10:00a Netta Avery E03.9 Hypothyroidism, MD Lizzie unspecified E55.9 Vitamin D deficiency, unspecified E78.2 Mixed hyperlipidemia R73.01 Impaired fasting glucose K59.00 Constipation, unspecified K21.9 Gastro-esophageal reflux disease without esophagitis H61.21 Impacted cerumen, RIGHT ear Office Visit 04/02/2017 1:00p Linda Mercer, R19.7 Diarrhea, unspecified RN MS LEAD MACHINIST K59.00 Constipation, unspecified Office Visit 03/23/2017 2:00p Netta Avery Z01.419 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 (general) (routine) w/o abn findings E03.9 Hypothyroidism, unspecified E55.9 Vitamin D deficiency, unspecified E78.2 Mixed hyperlipidemia N95.1 Menopausal and female climacteric states R73.01 Impaired fasting glucose Z00.00 Encntr for general adult medical exam w/o abnormal findings Office Visit 11/13/2016 2:00p Netta Avery MD R07.89 Other chest pain N76.2 Acute vulvitis N94.2 Vaginismus Office Visit 08/17/2016 11:45a Netta Avery Z12.31 Encntr screen MD Lizzie mammogram for malignant neoplasm of breast E03.9 Hypothyroidism, unspecified E55.9 Vitamin D deficiency, unspecified M25.521 Pain in RIGHT elbow Office Visit 04/01/2016 2:00p Linda Mercer, RN R07.89 Other chest pain MS LEAD MACHINIST N64.9 Disorder of breast, unspecified Office Visit [...] 11:45a Netta Avery Z23 Encounter for MD Lizzei immunization Z01.810 Encounter for preprocedural cardiovascular examination [...] Visit 01/28/2015 3:00p Netta Avery V72.31 Routine Chair Spring Assembler MD Lizzie Examination 244.9 Hypothyroidism Other Unspec 268.9 Vitamin D Deficiency Unspec 389.9 Hearing Loss Unspec 530.11 Esophagitis Reflux V76.10 Screening For Malignant Neoplasm Breast Office Visit 10/16/2014 3:15p Netta Avery 487.8 Influenza W/ Other MD Lizzie Manifestations Office Visit 06/26/2014 8:30a Netta Avery [...] Visit 01/01/2014 1:15p Netta Avery V72.31 Routine Chair Spring Assembler MD Lizzie Examination 268.9 Vitamin D Deficiency [...] Visit 12/16/2012 2:45p Netta Avery V72.31 Routine Chair Spring Assembler MD Lizzie Examination 244.9 Hypothyroidism Other Unspec [...] Visit 12/15/2011 11:00a Netta Avery V72.31 Routine Chair Spring Assembler MD Lizzie Examination 244.9 Hypothyroidism Other Unspec 268.9 Vitamin D Deficiency Unspec 786.50 Pain Chest Unspec Office Visit 10/28/2011 11:00a Linda Mercer, 079.99 Viral Infection RN MS LEAD MACHINIST Unspec 789.05 Pain Abdominal Periumbilic Office Visit 09/11/2011 1:45p Netta Avery 110.8 Dermatophytosis Rehana Pham MD Spec Sites Office Visit 07/21/2011 1:30p Netta Avery 244.9 Hypothyroidism Other MD Lizzie Unspec 268.9 Vitamin D Deficiency Unspec 794.8 Liver Study Abnormal 280.9 Iron Deficiency Anemia Unspec 788.99 Other Symptoms Involving Urinary System 616.10 Vaginitis & Vulvovaginitis Unspec Office Visit 03/25/2011 10:45a Netta Avery 786.50 Pain Chest Unspec MD Lizzie Office Visit 11/25/2010 1:15p Netta Avery V72.31 Routine Chair Spring Assembler MD Lizzie Examination 244.9 Hypothyroidism Other Unspec [...] Mercer, 388.70 Otalgia & Earache RN MS LEAD MACHINIST Unspec Office Visit 10/28/2009 1:15p Linda Mercer, v74.1 Screening Examination RN MS LEAD MACHINIST Pulmonary Tuberculosis V72.31 Routine Chair Spring Assembler Examination 564.00 Constipation Unspecified V74.1 Screening Examination Pulmonary Tuberculosis V58.69 Medications Seasonal Retail Merchandiser (Current) Use Encounter 272.2 Hyperlipidemia Mixed Office Visit 09/19/2009 10:15a Linda Mercer, 465.9 URI Upper Respiratory RN MS LEAD MACHINIST Infections Acute Unspec Sites 616.10 Vaginitis & Vulvovaginitis Unspec 569.42 Pain Anal Or Rectal Office Visit 06/25/2009 2:00p Linda Mercer, 462 Pharyngitis Acute RN MS LEAD MACHINIST Office Visit 05/17/2009 2:45p Netta Avery 477.0 Rhinitis Allergic Due MD Lizzie To Pollen 244.9 Hypothyroidism Other Unspec 268.9 Vitamin D Deficiency Unspec 281.9 Anemia Deficiency Unspec V04.81 Need For Prophylactic Vaccination & Inoculation/Influenza Office Visit 02/27/2009 1:00p Linda Mercer 789.07 Pain Abdominal C, RN MS LEAD MACHINIST Generalized Office Visit 10/18/2008 10:45a Linda Mercer 244.9 Hypothyroidism Other C, RN MS LEAD MACHINIST Unspec V72.31 Routine Chair Spring Assembler Examination 281.9 Anemia Deficiency Unspec 268.9 Vitamin D Deficiency Unspec 616.10 Vaginitis & Vulvovaginitis Unspec Office Visit 03/26/2008 3:00p Netta Avery MD 705.81 Dyshidrosis 244.9 Hypothyroidism Other Unspec 281.9 Anemia Deficiency Unspec Office Visit 09/29/2007 1:15p Linda Mercer, V72.31 Routine Chair Spring Assembler RN MS LEAD MACHINIST Examination 244.9 Hypothyroidism Other Unspec 564.00 Constipation Unspecified V58.69 Medications Shelter (Current) Use Encounter V70.0 Exam (Adult) General Medical Routine AT Health Care Facility Office Visit 12/30/2006 1:15p Linda Mercer, V72.84 Examination RN MS LEAD MACHINIST Preoperative Unspec V70.0 Exam (Adult) General Medical Routine AT Health Care Facility 244.9 Hypothyroidism Other Unspec Office Visit 09/28/2006 2:30p Linda Mercer, V72.31 Routine Chair Spring Assembler RN MS LEAD MACHINIST Examination V70.0 Exam (Adult) General Medical Routine AT Health Care Facility 244.9 Hypothyroidism Other Unspec 785.2 Murmur Cardiac [...] Constipation Unspecified Office Visit 06/15/2005 3:00p Netta vAery MD 719.47 Pain Joint Ankle & Foot 244.9 Hypothyroidism Other Unspec V17.3 History Family Ischemic Heart Disease V72.31 Routine Chair Spring Assembler Examination V70.0 Exam (Adult) General Medical Routine AT Health Care Facility Office Visit 03/13/2005 11:30a Netta Avery 244.9 Hypothyroidism Rehana Pham MD Unspec 280.9 Iron Deficiency Anemia Unspec 252.00 Hyperparathyroidism NOS Office Visit 12/25/2004 8:15a Linda Mercer RN 814.00 FX Carpal Bone MS LEAD MACHINIST Closed Unspec V72.84 Examination Preoperative Unspec Office [...] Linda Mercer, 733.6 Tietzes Disease RN MS LEAD MACHINIST Office Visit 02/19/2004 1:20p Netta Avery 244.9 Hypothyroidism Rehana Pham MD Unspec 280.9 Iron Deficiency Anemia Unspec Office Visit 11/22/2003 9:20a Netta Avery 244.9 Hypothyroidism Rehana Pham MD Unspec 281.0 Pernicious Anemia 794.8 Liver Study Abnormal Office Visit 10/26/2003 3:30p Netta Avery MD 285.9 Anemia Unspec 244.9 Hypothyroidism Other Unspec Office Visit 10/12/2003 11:40a Netta Avery 959.5 Injury Finger Other & MD Lizzie Unspec Office Visit 09/27/2003 11:10a Netta Avery 280.9 Iron Deficiency MD Lizzie Anemia Unspec V70.0 Exam (Adult) General Medical Routine AT Health Care Facility V07.2 Prophylactic Immunotherapy Office Visit 02/19/2003 5:30p Netta Avery 616.10 Vaginitis & MD Lizzie Vulvovaginitis Unspec 795.00 Abnormal Glandular Pap Smear Office Visit 01/29/2003 10:40a Linda Mercer RN MS 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
[2018-11-29] MEDS ORDERED: Dexamethasone TAB* 4 MG PO ONE (06:00)
[2018-11-29] MEDS ORDERED: Lactated Ringers 1000 ML Bag* 1,000 ML IV SCH (06:00)
[2018-11-29] MEDS ORDERED: Famotidine IV* 10 MG/ML 2 ML (20 mg) IV ONE (06:00)
[2018-11-29] MEDS ORDERED: Famotidine IV* 10 MG/ML 2 ML (20 mg) ONE (06:46)
[2018-11-29] MEDS ORDERED: Dexamethasone TAB* 4 MG ONE (06:46)
[2018-11-29] MEDS ORDERED: Ondansetron ODT TAB* 4 MG ONE (06:46)
[2018-11-29] MEDS ORDERED: fentaNYL* 50 MCG/ML 2 ML VIAL (100 MCG VIAL) ONE ×2 (07:02→09:04)
[2018-11-29] MEDS ORDERED: Midazolam* 1 MG/ML 5 ML VIAL (5 MG) ONE (07:02)
[2018-11-29] MEDS ORDERED: KETAMINE HCL* 50 MG/ML 10 ML VIAL ONE (07:02)
[2018-11-29] MEDS ORDERED: Bupivacaine 0.5%* 50 ML VIAL ONE (07:55)
[2018-11-29] MEDS ORDERED: Lidocaine 2% PF * 5 ML VIAL ONE (08:17)
[2018-11-29] MEDS ORDERED: Bupivacaine 0.5% SDV PF* 30ML VIAL ONE (08:17)
[2018-11-29] MEDS ORDERED: Propofol* 10 MG/ML 20 ML BTL ONE (08:17)
[2018-11-29] MEDS ORDERED: PROCHLORPERAZINE INJ 5 MG/ML 2 ML VIAL ONE (08:28)
[2018-11-29] MEDS ORDERED: Ketorolac INJ* 30 MG/ML 1 ML VIAL ONE (08:28)
[2018-11-29] MEDS ORDERED: Bupivacaine 0.5% W/EPI SDV* 30 ML VIAL ONE (08:54)
[2018-11-29] MEDS ORDERED: oxyCODONE TAB* 5 MG TAB PO PRN ×2 (08:56→10:42)
[2018-11-29] MEDS ORDERED: Acetaminophen IV 1GM/100ML * 100 ML ONE (09:01)
[2018-11-29] MEDS ORDERED: Gelfoam Sponge SIZE 100* SPONGE ONE (09:05)
[2018-11-29] MEDS ORDERED: Morphine 10 MG/ML VIAL (1 ml) ONE (10:20)
[2018-11-29] MEDS ORDERED: Magnesium Hydroxide LIQ* 30 ML UDC PO PRN (10:32)
[2018-11-29] MEDS ORDERED: diPHENhydraMINE IV* 50 MG/ML 1 ml VIAL (BENADRYL) IV PRN (10:38)
[2018-11-29] MEDS ORDERED: Morphine INJ* 2 MG/ML 1 ML SYRINGE (TWO MG - NEW SYRINGE VERSION) IV PRN (10:38)
[2018-11-29] MEDS ORDERED: Ondansetron INJ* 2 MG/ML VIAL IV PRN (10:38)
[2018-11-29] MEDS ORDERED: Ibuprofen TAB* 400 MG PO PRN (10:48)
[2018-11-29] MEDS ORDERED: Neosporin TOPICAL OINT* 1 EA PACKET TOPICAL PRN (10:48)
[2018-11-29] MEDS ORDERED: Cetirizine* 10 MG TAB PO PRN (10:48)
[2018-11-29] MEDS ORDERED: guaiFENesin LIQ* 100 MG/5 ML UDC PO PRN (10:48)
[2018-11-29] MEDS ORDERED: ceFAZolin 1 GM ADVAN(*) 1 GM in NS 0.9% 50 ML* 50 ML IVPB SCH (11:00)
[2018-11-29] MEDS: Lactated Ringers 1000 ML Bag* 1,000 ML IV SCH (11:57)
[2018-11-29] MEDS: oxyCODONE TAB* 5 MG TAB PO PRN (14:58)
--- NOTE | 2018-11-29 15:29 | OP ---
Operative Report - Blank - Operative Report Date of Operation: 11/29/18 Note: PATIENT: Lacie Shea DATE OF : 1975 DATE OF SURGERY: 11/29/2018 SURGEON: Marty Dixon MD ORGAN PIPE FINISHER: Colin Mcclain MD and MAMTA Gonzalez, whos assistance was necessary for positioning, retraction, help with instrumentation, and closure. ANESTHESIOLOGIST: Dr. 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 ANESTHESIA: General + block IMPLANTS: Arthrex 4.0mm and 6.7mm cannulated screws. Arthrex nitinol compression jami. TOURNIQUET TIME: Approximately 2 hours with a well-padded thigh tourniquet at 250mmHg SPECIMENS: none ESTIMATED BLOOD LOSS: minimal COMPLICATIONS: none STATUS: Stable from the operating room to the recovery room and then admitted to the hospital floor. INDICATIONS FOR PROCEDURE: Lacie has had worsening pain from hindfoot arthritis in the setting of Laws- Owen disease. Both operative and non-operative treatment alternatives were reviewed. Further, the nature and risks of surgery were reviewed in careful detail. Our discussions regarding the risks of surgery included, but were not limited to, infection, wound problems, nerve injury, neuroma, RSD, persistent symptoms, blood clot, nonunion, malunion, adjacent joint arthritis, need for further surgery, failure of the surgery, and even the remote chance of catastrophic complication, including loss of limb. DESCRIPTION OF PROCEDURE: The patient was seen in the preoperative holding unit and informed written consent was obtained. The appropriate extremity was marked. The patient was then brought to the operating room and carefully positioned on the operating room table. Anesthesia was induced. All bony prominences were padded with great care. A well-padded thigh tourniquet was placed. A chlorhexidine based pre- scrub was performed followed by a chloraprep prep and drape in standard sterile fashion. A surgical safety pause was then conducted in which we confirmed the appropriate patient, extremity, planned procedure, availability of equipment, indication and administration of prophylactic antibiotics, and DVT prophylaxis in the form of a compression boot on the non-surgical extremity. I began with an Esmarch exsanguination of the limb and inflated the tourniquet. I utilized an extensile sinus tarsi incision at the lateral hindfoot. Dissection was carried down through the extensor digitorum brevis to the lateral hindfoot. Subperiosteal flaps were raised to expose the subtalar joint , calcaneocuboid joint, and lateral aspect of the talonavicular joint. All 3 of these joints were then exposed and meticulously prepared for fusion. This included removal of any remaining cartilage with a 15 blade scalpel and curette. The subchondral bone was then golf balled with a 2 mm hussein. An osteotome was then used to feather the subchondral bone. The subchondral cysts in the talar head were cleared of fibrinous material. I had excellent exposure of all 3 joints, so decided not to make a formal medial incision. Attention was then turned to the left iliac crest which had been previously prepped and draped in a standard fashion. A small amount of Marcaine with epinephrine was placed in the subcutaneous tissues and then also used to anesthetize the periosteum and the soft tissues over the iliac crest. An incision over the crest was made and dissection was taken down to the iliac crest posterior to the ASIS. A small oscillating saw blade was used to remove a corticocancellus block from the outer plate of the iliac crest. Gelfoam was placed into the defect. The incision site for the bone graft was then copiously irrigated and closed in layers utilizing 3-0 Monocryl and 3-0 nylon. A sterile dressing was applied. The iliac crest bone graft was then mixed with allograft cancellous chips and demineralized bone matrix. A bone mill was used to grind up the grafts. The bone graft mixture was then packed into the talonavicular, calcaneocuboid, and subtalar joints. It was also packed into the talar head cysts. Extra graft was packed into the sinus Tarsi. I then manually reduced the talonavicular joint and placed guidewires across the talonavicular joint for 4.0 mm cannulated screws. Placement was confirmed fluoroscopically. A guidewire was also placed across the subtalar joint with the subtalar joint compressed. Again , fluoroscopy was used to confirm placement. A depth gauge was used to measure the length of the pins, the pins were overdrilled, and screws were placed. Three 4.0 mm cannulated screws were placed across the talonavicular joint. One 6.7 mm cannulated screw was placed across the subtalar joint. The third cannulated screw placed across the talonavicular joint broke just beneath the head of the screw. Otherwise, all of the screws had phenomenal purchase and provided good compression of the joints. I then placed 2 nitinol compression jami across the calcaneocuboid joint, which provided great compression. Final fluoroscopic images were then obtained. The wounds were copiously irrigated and meticulously closed in layers utilizing 3-0 Monocryl and 3-0 nylon for the skin. A sterile dressing was then applied followed by a well- padded splint. The patient was then awakened from anesthesia and transferred to the recovery room in stable condition. There were no complications. All needle and sponge counts were correct at the end of the case. ATTESTATION: I attest I was present and scrubbed and performed the critical portions of the procedure myself. POSTOPERATIVE PLAN: The plan is for nonweightbearing for anticipated duration of 8 weeks. Follow-up will be in 2 weeks for likely suture removal, x-rays, and transition to a short-leg nonweightbearing cast.
[2018-11-29] MEDS: ceFAZolin 1 GM in Dextrose (*) 1 GM/50 ML BAG IVPB SCH ×2 (16:51→23:31)
[2018-11-29] MEDS: Docusate CAP* 100 MG PO SCH (20:21)
[2018-11-29] MEDS: [UNRECOGNIZED DRUG - OTHER] PO SCH (20:22)
[2018-11-29] MEDS: [UNRECOGNIZED DRUG - OTHER] PO SCH (20:23)
[2018-11-29] MEDS: SODIUM FLUORIDE PO SCH (20:23)
[2018-11-29] MEDS: Acetaminophen TAB* 325 MG PO SCH (22:18)
[2018-11-30] MEDS: Lactated Ringers 1000 ML Bag* 1,000 ML IV SCH (01:16)
[2018-11-30 05:10] LABS: Hematocrit 34 % (33-41); Hemoglobin 11.6 g/dL (12.0-16.0); Mean Platelet Volume 8.9 fL (7.4-10.4); Platelet Count 230 10^3/uL (150-450)
[2018-11-30] MEDS: Levothyroxine TAB* 75 MCG TAB PO SCH (05:25)
[2018-11-30] MEDS: Acetaminophen TAB* 325 MG PO SCH ×3 (05:26→20:21)
[2018-11-30 05:27] LABS: BUN/Creatinine Ratio 15.2 (8-20); Calcium 8.9 mg/dL (8.6-10.3); EGFR African American 117.7 (>60); EGFR Non-African American 97.3 (>60); Potassium 3.7 mmol/L (3.5-5.0)
[2018-11-30] MEDS: [UNRECOGNIZED DRUG - OTHER] PO SCH ×2 (07:56→20:07)
[2018-11-30] MEDS: WHEAT DEXTRIN PO SCH (07:57)
[2018-11-30] MEDS: [UNRECOGNIZED DRUG - OTHER] PO SCH ×2 (07:57→20:08)
[2018-11-30] MEDS: SODIUM FLUORIDE PO SCH ×2 (07:57→20:08)
[2018-11-30] MEDS: ceFAZolin 1 GM in Dextrose (*) 1 GM/50 ML BAG IVPB SCH (08:05)
[2018-11-30] MEDS: Docusate CAP* 100 MG PO SCH ×3 (08:06→20:21)
[2018-11-30] MEDS: Cholecalciferol TAB* 1000 UNITS PO SCH ×2 (08:06→10:02)
[2018-11-30] MEDS: Aspirin TAB* 325 MG PO SCH ×2 (08:06→10:02)
[2018-11-30] MEDS: Multivitamins/Minerals TAB PO SCH ×2 (08:06→10:02)
[2018-11-30] MEDS: Fluticasone NASAL SPRAY 50MCG* 16 gm SPRAY BTL BOTH NARES SCH (08:06)
[2018-11-30] MEDS: Pantoprazole TAB * 40 MG TAB PO SCH ×2 (08:07→10:02)
--- NOTE | 2018-11-30 08:38 | PN ---
Progress Note - Progress Note Date of Service: 11/30/18 SOAP: Subjective: []Pt seen at bedside. Pain is well controlled. Denies fever, chills, CP, SOB, dizziness, nausea. Objective: [] General: Appears well, NAD LLE: Splint CDI, no erythema surrounding. No pain with passive stretch of great toe. Flexion and extension of digits intact. Capillary refill less than two seconds distally. 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 Plan: [] NOnweightbearing for anticipated duration of 8 weeks. Aspirin 325 mg daily Follow-up will be in 2 weeks for likely suture removal, x-rays, and transition to a short-leg nonweightbearing cast. Rehab placement pending Vital Signs Temp 98.9 F 11/30/18 04:38 Pulse 69 11/30/18 04:38 Resp 17 11/30/18 04:38 BP 110/46 11/30/18 04:38 Pulse Ox 99 11/30/18 04:38 Intake & Output 11/29/18 11/30/18 11/30/18 18:59 06:59 18:59 Intake Total 2092 2540 Output Total 1250 1950 Balance 842 590 Intake: IV Fluids 1400 980 LR 1300 980 NS 100ML, Cefazolin 2G 100 IVPB 462 50 ABX - CEFAZOLIN 50 LR 407 abx 55 Oral 230 1510 Output: Urine 1250 1950 Other: # Bowel Movements 0 Laboratory Last Values Hgb 11.6 g/dL (12.0-16.0) L 11/30/18 04:42 Hct 34 % (33-41) 11/30/18 04:42 Plt Count 230 10^3/uL (150-450) 11/30/18 04:42 MPV 8.9 fL (7.4-10.4) 11/30/18 04:42 Sodium 138 mmol/L (135-145) 11/30/18 04:42 Potassium 3.7 mmol/L (3.5-5.0) 11/30/18 04:42 Chloride 107 mmol/L (101-111) 11/30/18 04:42 Carbon Dioxide 26 mmol/L (22-32) 11/30/18 04:42 Anion Gap 5 mmol/L (2-11) 11/30/18 04:42 BUN 10 mg/dL (6-24) 11/30/18 04:42 Creatinine 0.66 mg/dL (0.51-0.95) 11/30/18 04:42 Est GFR ( Amer) 117.7 (>60) 11/30/18 04:42 Est GFR (Non-Af Amer) 97.3 (>60) 11/30/18 04:42 BUN/Creatinine Ratio 15.2 (8-20) 11/30/18 04:42 Glucose 117 mg/dL (70-100) H 11/30/18 04:42 Calcium 8.9 mg/dL (8.6-10.3) 11/30/18 04:42
[2018-11-30] MEDS: CMCS:OMEGA-3 FATTY ACIDS (NF) 1,000 MG CAP PO SCH (10:02)
[2018-11-30] MEDS: oxyCODONE TAB* 5 MG TAB PO PRN (22:11)
[2018-12-01] MEDS: Acetaminophen TAB* 325 MG PO SCH ×2 (05:14→14:05)
[2018-12-01] MEDS: Levothyroxine TAB* 75 MCG TAB PO SCH (05:15)
[2018-12-01] MEDS: oxyCODONE TAB* 5 MG TAB PO PRN ×2 (05:15→10:30)
[2018-12-01 07:05] LABS: Hematocrit 36 % (33-41); Hemoglobin 12.3 g/dL (12.0-16.0); Mean Platelet Volume 8.6 fL (7.4-10.4); Platelet Count 213 10^3/uL (150-450)
[2018-12-01] MEDS: [UNRECOGNIZED DRUG - OTHER] PO SCH ×2 (08:02→09:21)
[2018-12-01] MEDS: WHEAT DEXTRIN PO SCH (09:22)
[2018-12-01] MEDS: SODIUM FLUORIDE PO SCH (09:22)
[2018-12-01] MEDS: [UNRECOGNIZED DRUG - OTHER] PO SCH (09:22)
[2018-12-01] MEDS: Docusate CAP* 100 MG PO SCH (09:26)
[2018-12-01] MEDS: Pantoprazole TAB * 40 MG TAB PO SCH (09:26)
[2018-12-01] MEDS: Multivitamins/Minerals TAB PO SCH (09:26)
[2018-12-01] MEDS: Aspirin TAB* 325 MG PO SCH (09:26)
[2018-12-01] MEDS: Cholecalciferol TAB* 1000 UNITS PO SCH (09:27)
[2018-12-01] MEDS: Fluticasone NASAL SPRAY 50MCG* 16 gm SPRAY BTL BOTH NARES SCH (09:27)
[2018-12-01] MEDS: CMCS:OMEGA-3 FATTY ACIDS (NF) 1,000 MG CAP PO SCH (09:28)
--- NOTE | 2018-12-01 11:41 | PN ---
Progress Note - Progress Note Date of Service: 12/01/18 SOAP: Subjective: [] Pt seen OOB in chair. Pain is well controlled. Denies CP, SOB, dizziness, nausea. Objective: []General: Appears well, NAD LLE: Splint CDI, no erythema surrounding. Flexion and extension of MTPs intact without pain. Capillary refill less than two seconds distally. 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 Plan: [] NOnweightbearing for anticipated duration of 8 weeks. Aspirin 325 mg daily Follow-up will be in 2 weeks for likely suture removal, x-rays, and transition to a short-leg nonweightbearing cast. Rehab placement pending Vital Signs Temp 98.7 F 12/01/18 08:15 Pulse 70 12/01/18 08:15 Resp 16 12/01/18 10:30 BP 153/66 12/01/18 08:15 Pulse Ox 97 12/01/18 08:15 Intake & Output 11/30/18 12/01/18 12/01/18 18:59 06:59 18:59 Intake Total 850 460 480 Output Total 600 1800 250 Balance 250 -1340 230 Intake: Oral 850 460 480 Output: Urine 600 1800 250 Other: # Bowel Movements 0 Laboratory Last Values Hgb 12.3 g/dL (12.0-16.0) 12/01/18 06:41 Hct 36 % (33-41) 12/01/18 06:41 Plt Count 213 10^3/uL (150-450) 12/01/18 06:41 MPV 8.6 fL (7.4-10.4) 12/01/18 06:41 Sodium 138 mmol/L (135-145) 11/30/18 04:42 Potassium 3.7 mmol/L (3.5-5.0) 11/30/18 04:42 Chloride 107 mmol/L (101-111) 11/30/18 04:42 Carbon Dioxide 26 mmol/L (22-32) 11/30/18 04:42 Anion Gap 5 mmol/L (2-11) 11/30/18 04:42 BUN 10 mg/dL (6-24) 11/30/18 04:42 Creatinine 0.66 mg/dL (0.51-0.95) 11/30/18 04:42 Est GFR ( Amer) 117.7 (>60) 11/30/18 04:42 Est GFR (Non-Af Amer) 97.3 (>60) 11/30/18 04:42 BUN/Creatinine Ratio 15.2 (8-20) 11/30/18 04:42 Glucose 117 mg/dL (70-100) H 11/30/18 04:42 Calcium 8.9 mg/dL (8.6-10.3) 11/30/18 04:42
--- NOTE | 2018-12-01 11:52 | DS ---
Orthopedic Discharge Summary - Discharge Summary Date of Admission:11/29/18 Date of Discharge: 12/01/18 Date of Surgery: 11/29/18 Attending Orthopedic Provider: Dr. 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 Hospital Course: DINORA was admitted to [facility] on 11/29/18. Patient underwent a [ Left hindfoot triple arthrodesis with iliac crest autograft, and allograft.] without complication followed by a brief recovery in PACU and transfer to the Short Stay Surgical Unit in stable condition. Physical therapy and occupational therapy also participated in this patients care. Post- op day 1: patient was alert and in no acute distress. Dressing and Splint were clean, dry and intact. Sensation intact to light touch, capillary refill less than two seconds and flexion and extension of MTPs intact. POD 2 she was well appearing, no change in exam and deemed stable for DC to the [facility]. Discharge Medications Medication Instructions Recorded Confirmed Type Acetaminophen [Tylenol] 650 mg PO DAILY PRN 11/22/18 11/22/18 History Act Mint Solution 1 oral.soln PO BID 11/22/18 11/29/18 History Cholecalciferol (Vitamin D3) 1,000 unit PO SEE INSTRUCTIONS 11/22/18 11/29/18 History [Vitamin D3] Fluticasone NASAL SPRAY 50MCG* 2 spray BOTH NARES 0800 11/22/18 11/29/18 History [Flonase NASAL SPRAY 50MCG*] Ibuprofen [Ibu-200] 400 mg PO TID PRN 11/22/18 11/22/18 History Levothyroxine TAB* [Synthroid 75 75 mcg PO 0630 11/22/18 11/29/18 History MCG TAB*] Loratadine 10 mg PO DAILY PRN 11/22/18 11/29/18 History Multivitamin,Ther and Minerals 1 tab PO QAM 11/22/18 11/29/18 History [Vitamin and Minerals] Neomycin/Bacitracin/Polymyxinb 1 each TOPICAL BID PRN 11/22/18 11/29/18 History [Triple Antibiotic Ointment] [place]-3 Fatty Acids/Fish Oil 1 cap PO SEE INSTRUCTIONS 11/22/18 11/29/18 History [[place] 3 1,000 mg Softgel] Omeprazole 20 mg PO BID 11/22/18 11/29/18 History Sf 1.1% Mint Gel 1.1 % PO BID 11/22/18 11/29/18 History Wheat Dextrin [Benefiber] 144 gm PO QAM 11/22/18 11/29/18 History guaiFENesin [Guaifenesin] 200 mg PO TID PRN 11/22/18 11/22/18 History Acetaminophen TAB* [Tylenol TAB*] 975 mg PO Q8HR tab 12/01/18 Rx Docusate CAP* [Colace Cap*] 100 mg PO BID cap 12/01/18 Rx oxyCODONE TAB* [Roxycodone TAB 5 5 mg PO Q4H PRN tab MDD 8 12/01/18 Rx mg*] oxyCODONE TAB* [Roxycodone TAB 5 10 mg PO Q4H PRN tab MDD 8 12/01/18 Rx mg*] Discharge to [facility] in stable condition Nonweightbearing operative extremity for anticipated duration of 8 weeks. Keep splint clean, dry and intact until follow up visit Right hip dressing can be changed with clean gauze and tape as needed. Aspirin 325 mg daily for DVT prophylaxis oxycodone 5 mg 1-2 tabs every 4 hours as needed for pain, max 8 per day. Hold for sedation ,wean off as soon as able Follow-up with Dr Dixon in 2 weeks for likely suture removal, x-rays, and transition to a short-leg nonweightbearing cast. Call for appointment [phone] Go to the emergency room with chest pain or shortness of breath Call the orthopedic office with increased pain, swelling, redness, drainage, fever or chills
[2018-12-01] MEDS ORDERED: diPHENhydraMINE PO* 25 MG PO PRN (11:58)
[2018-12-01] MEDS ORDERED: diPHENhydraMINE PO* 25 MG ONE (12:04)
[2018-12-01 12:06] VITALS: BP 102/52
[2018-12-02] MEDS ORDERED: Scopolamine PATCH Remove* 1 NOTE MISC PATCH OFF ONE (05:47)
== END 2018-12-01 14:30 ==
LOC: INTOOBSV 05:51 → AA 05:51 → SSU 11:30
PROVIDERS: ADMIT Orthopaedic Surgery; ATTEND Orthopaedic Surgery
DX: M19.072 Primary osteoarthritis, left ankle and foot (principal); M87.874 Other osteonecrosis, right foot; M19.071 Primary osteoarthritis, right ankle and foot; M87.875 Other osteonecrosis, left foot; F90.9 Attention-deficit hyperactivity disorder, unspecified type
CPT/HCPCS: 36415; 80048; 85014; 85018; 85049; 96374; A9270-GY; G0378; G8978-GP-CK; G8979-GP-CI; G8987-GO-CK; G8988-GO-CI; J0690; J0780; J1885; J2250; J2270; J2405; J2704; J3010; J8540

== ENCOUNTER 2021-03-27 07:30 | Inpatient (IN) ==
[~2021-03-27 07:30] MED LIST changes: +Buffered Lidocaine 1% SYRIN 1 ml INTRADERM ONE; -Buffered Lidocaine 1% SYRIN* 1 ML/SYRINGE INTRADERM ONE; -DiMENhydriNATE IV* 50 MG/ML VIAL IV PUSH PRN; +Lactated Ringers 1000 ml BAG 1,000 ML IV SCH; -Morphine 4 MG/ML VIAL (1 ml) 4 MG/ML VIAL IV PRN; -Naloxone* 0.4 MG/ML 1 ML VIAL IV PRN; -Ondansetron TAB* 4 MG PO ONE; -PROCHLORPERAZINE INJ 5 MG/ML 2 ML VIAL IV PRN; -Scopolamine 1.5 mg* PATCH TRANSDERM PRN; -fentaNYL* 50 MCG/ML 2 ML VIAL (100 MCG VIAL) IV PRN; -oxyCODONE/Acetamin 5/325 MG* TAB PO PRN
[2021-03-27] MEDS ORDERED: Midazolam 2 mg/2 ml VIAL 1 mg/ml 2 ml VIAL (2 mg) ONE ×2 (09:01→10:05)
[2021-03-27] MEDS ORDERED: Dexamethasone IV 4 MG/ML VIAL 1 ml VIAL ONE ×2 (09:01→10:35)
[2021-03-27] MEDS ORDERED: ceFAZolin 2 GM in NS PREMIX 2 GM/100 ML BAG IVPB ONE (09:09)
[2021-03-27] MEDS ORDERED: Bupivacaine 0.5% SDV PF 30ML VIAL ONE ×2 (09:21→09:22)
[2021-03-27] MEDS ORDERED: Lidocaine 1% MPF 5 ML VIAL ONE (09:22)
[2021-03-27 09:32] LABS: Hematocrit 38 % (35-47); Hemoglobin 12.8 g/dL (12.0-16.0); Mean Corpuscular HGB Conc 34 g/dL (31-36); Mean Corpuscular Hemoglobin 30 pg (27-31); Mean Corpuscular Volume 89 fL (80-97); Platelet Count 313 10^3/uL (150-450); Red Blood Count 4.29 10^6 /uL (3.70-4.87); Red Cell Distribution Width 14 % (10-15); White Blood Count 5.9 10^3/uL (3.5-10.8)
[2021-03-27 09:52] LABS: INR 1.1 (0.86-1.15)
[2021-03-27] MEDS ORDERED: Lidocaine 2% PF 5 ML VIAL ONE (10:03)
[2021-03-27] MEDS ORDERED: Propofol 10 MG/ML 20 ML BTL ONE (10:03)
[2021-03-27] MEDS ORDERED: fentaNYL 100 mcg/2 ml 50 MCG/ML VIAL ONE ×2 (10:05→13:07)
[2021-03-27] MEDS ORDERED: Ondansetron 4 mg VIAL 2 MG/ML 2 ml VIAL ONE (10:35)
[2021-03-27] MEDS ORDERED: DiMENhydriNATE IV 50 mg/ml 1 ml VIAL IV PUSH PRN (10:56)
[2021-03-27] MEDS ORDERED: Naloxone 0.4 mg VIAL 0.4 mg/ml 1 ml VIAL IV PRN ×2 (10:56)
[2021-03-27] MEDS ORDERED: Acetaminophen IV 1 GM/100ML 100 ML IV ONE (12:13)
[2021-03-27] MEDS ORDERED: Ondansetron 4 mg VIAL 2 MG/ML 2 ml VIAL IV PRN (12:50)
[2021-03-27] MEDS ORDERED: diPHENhydraMINE 25 mg TAB PO PRN (12:50)
[2021-03-27] MEDS ORDERED: diPHENhydraMINE IV 50 MG/ML 1 ml VIAL (BENADRYL) IV PRN (12:50)
[2021-03-27] MEDS ORDERED: Lactulose 30 ml UDC PO PRN (12:50)
[2021-03-27] MEDS ORDERED: Magnesium Hydroxide LIQ 30 ML UDC PO PRN (12:50)
[2021-03-27] MEDS ORDERED: Ondansetron ODT 4 mg TAB 4 MG TAB PO PRN (12:50)
[2021-03-27] MEDS ORDERED: Lactated Ringers 1000 ml BAG 1,000 ML IV SCH (13:00)
[2021-03-27] MEDS ORDERED: Morphine 2 MG/ML SYRINGE IV PRN (13:00)
[2021-03-27] MEDS: fentaNYL 100 mcg/2 ml 50 MCG/ML VIAL IV PRN ×4 (13:09→14:04)
[2021-03-27] MEDS: ceFAZolin 1 GM ADVAN 1 GM in NS 0.9% 50 ML 50 ML IVPB SCH (19:09)
[2021-03-27] MEDS: Magnesium Hydroxide LIQ 30 ML UDC PO SCH (22:03)
[2021-03-28] MEDS: ceFAZolin 1 GM ADVAN 1 GM in NS 0.9% 50 ML 50 ML IVPB SCH ×2 (02:39→09:55)
[2021-03-28] MEDS ORDERED: Fluticasone NASAL SPRAY 50MCG 16 gm SPRAY BTL BOTH NARES PRN (08:00)
[2021-03-28] MEDS: Cholecalciferol (VIT D3) 1,000 unit TAB PO SCH (09:48)
[2021-03-28] MEDS: Magnesium Hydroxide LIQ 30 ML UDC PO SCH ×3 (09:48→23:19)
[2021-03-28] MEDS: Vitamin THERAPEUTIC TAB PO SCH (09:48)
[2021-03-29] MEDS: Cholecalciferol (VIT D3) 1,000 unit TAB PO SCH (09:34)
[2021-03-29] MEDS: Vitamin THERAPEUTIC TAB PO SCH (09:34)
[2021-03-29] MEDS: Magnesium Hydroxide LIQ 30 ML UDC PO SCH ×2 (09:35→21:45)
[2021-03-30] MEDS: Vitamin THERAPEUTIC TAB PO SCH (10:58)
[2021-03-30] MEDS: Cholecalciferol (VIT D3) 1,000 unit TAB PO SCH (10:58)
[2021-03-30] MEDS: Magnesium Hydroxide LIQ 30 ML UDC PO SCH ×2 (10:59→22:27)
[2021-03-31] MEDS: Cholecalciferol (VIT D3) 1,000 unit TAB PO SCH (09:03)
[2021-03-31] MEDS: Vitamin THERAPEUTIC TAB PO SCH (09:04)
[2021-03-31] MEDS: Magnesium Hydroxide LIQ 30 ML UDC PO SCH (09:04)
[2021-03-31 11:34] VITALS: BP 146/99
== END 2021-03-31 14:15 | disposition home or self-care (01) | DRG 505 ==
LOC: EDSTATUS 07:30 → INTOOBSV 08:42 → AA 08:42 → SSU 15:01
PROVIDERS: ADMIT Orthopaedic Surgery; ATTEND Orthopaedic Surgery